=== PATIENT | female | born 1995 | race African-American/Black ===

== ENCOUNTER 2019-10-26 16:05 | Emergency (ER) | payer OTHER, BC, SELFPAY ==
[2019-10-26 16:19] VITALS: BP 132/69; PULSE 73; RESP 16; TEMP 37.4; O2SAT 98
--- NOTE | 2019-10-26 16:33 | ED.HEATRA ---
HPI - Head Injury General Chief complaint: Head Injury Stated complaint: head injury Time Seen by Provider: 10/26/19 16:25 Source: patient and RN notes reviewed Mode of arrival: ambulatory Limitations: no limitations History of Present Illness HPI Narrative: Patient presents today complaining of a headache and nausea. She was hit in the head by a bucket at work 3 days ago, subsequently seen in the ER at [facility], and diagnosed with a concussion. She was told to rest and take Tylenol. She has been also taking ibuprofen with mild relief. Currently rates her pain 7/10. Her nausea has increased today. She has already been cleared by Workmen's Comp. to go back to work. MD Complaint: head injury Related Data Home Medications Medication Instructions Recorded Confirmed No Home Medications 10/26/19 10/26/19 Allergies Allergy/AdvReac Type Severity Reaction Status Date / Time No Known Allergies Allergy Verified 10/26/19 16:26 Review of Systems Review of Systems: Narrative: CONSTITUTIONAL: Denies body aches, fever, chills, or sweats. EYES: Denies visual changes, redness, or discharge. ENT: Denies rhinorrhea, congestion, sore throat, or otalgia.+ Photophobia CARDIOVASCULAR: Denies chest pain, palpitations, or edema. RESPIRATORY: Denies cough or dyspnea. GASTROINTESTINAL: Denies abdominal pain, vomiting, or diarrhea.+ Nausea GENITOURINARY: Denies dysuria or hematuria. SKIN: Denies rash, itching, or wounds. MUSCULOSKELETAL: Denies back pain, joint pain, or myalgia. NEUROLOGIC: Denies numbness, tingling, or weakness. + Headache PSYCH: Denies depression or anxiety. [facility] Past Medical History Medical History (Updated 10/26/19 @ 16:38 by Leslee Melgar, PUBLIC HEALTH SPECIALIST, ) Anxiety Depression Social History Social History Gender identity (if verbalized by the patient): Female Comments At time of signature, I have reviewed and agree with nursing past medical, surgical, social and family history unless otherwise noted. Please see nursing chart for further information. There is no relevant family history pertinent to the presenting complaint Exam Narrative: Exam Narrative: GENERAL: Well-appearing, well-nourished, mild pain distress. HEAD: Normocephalic, atraumatic. EYES: EOMI. PERRL. No redness or drainage. Conjunctivae normal. ENT: Mucous membranes pink and moist. NECK: Normal AROM. CHEST: No respiratory distress. EXTREMITIES: Normal range of motion. No edema. SKIN: Warm, dry, no rash. Capillary refill normal. Normal skin turgor. NEURO: No focal deficits. Alert and oriented x3. Gait steady. PSYCH: Normal affect. No signs of depression or anxiety. Course Course Emergency Course: We will treat patient with Zofran for her nausea. Educated regarding cognitive rest. Vital Signs Vital signs: Vital Signs Temperature 99.4 F 10/26/19 16:19 Pulse Rate 73 10/26/19 16:19 Respiratory Rate 16 10/26/19 16:19 Blood Pressure 132/69 10/26/19 16:19 Pulse Oximetry 98 10/26/19 16:19 Temperature 99.4 F 10/26/19 16:19 Pulse Rate 73 10/26/19 16:19 Respiratory Rate 16 10/26/19 16:19 Blood Pressure 132/69 10/26/19 16:19 Pulse Oximetry 98 10/26/19 16:19 Reviewed. Pt has been instructed to follow up with her PCP regarding her elevated blood pressure today. MDM - Head Injury Differential Diagnosis Differential diagnosis: Likely postconcussion syndrome Critical Care Time Critical Care Time Critical Care Time: No Discharge Plan Discharge Clinical Impression: Postconcussion syndrome Patient Disposition: Home, Self-Care Condition: Stable Instructions: Post Concussion Syndrome (ED) Additional Instructions: Your symptoms are consistent with concussion/postconcussion syndrome. The symptoms may last for a couple of weeks. Please continue Tylenol and ibuprofen for headache. Take Zofran for nausea. Follow-up with your doctor or workman's comp physician with any conc
== END 2019-10-26 16:40 | disposition home or self-care (01) ==
PROVIDERS: Emergency Provider Nurse Practitioner
DX: F07.81 Postconcussional syndrome (principal)
CPT/HCPCS: 99213; G0463

== ENCOUNTER 2020-10-18 12:54 | Emergency (ER) | payer OTHER, SELFPAY ==
[2020-10-18 12:58] VITALS: BP 143/79; PULSE 98; RESP 16; TEMP 37.1; O2SAT 100
--- NOTE | 2020-10-18 15:42 | ED.URI ---
HPI - URI/Sore Throat General Chief Complaint: Upper Respiratory Infection Stated Complaint: SCRATCHY THROAT/COUGH/BODY ACHES Time Seen by Provider: 10/18/20 13:02 Source: patient and RN notes reviewed Mode of arrival: ambulatory Limitations: no limitations History of Present Illness HPI Narrative: Patient presents today complaining of scratchy and dry throat, fatigue since yesterday morning. She is currently 24 weeks and 1 day , G1, P0. She did see her SURVEY RESEARCH PROFESSOR yesterday and mentioned her symptoms. Her SURVEY RESEARCH PROFESSOR told her she needs to find a primary care provider. She has tried no [id number] treatment prior to arrival. She has not been vaccinated against COVID-19. Denies fever, cough, sore throat, congestion, runny nose. Related Data Allergies Allergy/AdvReac Type Severity Reaction Status Date / Time No Known Allergies Allergy Verified 10/26/19 16:26 Review of Systems Review of Systems: CONSTITUTIONAL: Denies body aches, fever, chills, or sweats.+ Fatigue EYES: Denies visual changes, redness, or discharge. ENT: Denies rhinorrhea, congestion, sore throat, or otalgia.+ Dry and scratchy throat CARDIOVASCULAR: Denies chest pain, palpitations, or edema. RESPIRATORY: Denies cough or dyspnea. GASTROINTESTINAL: Denies abdominal pain, nausea, vomiting, or diarrhea. GENITOURINARY: Denies dysuria or hematuria. SKIN: Denies rash, itching, or wounds. MUSCULOSKELETAL: Denies back pain, joint pain, or myalgia. NEUROLOGIC: Denies headache, numbness, tingling, or weakness. PSYCH: Denies depression or anxiety. [facility] Past Medical History Medical History Anxiety Depression Social History Social History Gender identity (if verbalized by the patient): Female Comments At time of signature, I have reviewed and agree with nursing past medical, surgical, social and family history unless otherwise noted. Please see nursing chart for further information. There is no relevant family history pertinent to the presenting complaint Exam Narrative: GENERAL: Well-appearing, well-nourished, and in no acute distress. HEAD: Normocephalic, atraumatic. EYES: EOMI. No redness or drainage. Conjunctivae normal. ENT: Mucous membranes pink and moist. Nares clear. No rhinorrhea. TMs normal bilaterally. Throat normal with mild amount of postnasal drainage. Uvula midline. NECK: Normal AROM. Supple. No lymphadenopathy. CHEST: No respiratory distress. Clear to auscultation. HEART: Regular rate and rhythm. No murmur appreciated. Normal peripheral pulses. ABDOMEN: Soft, nontender, nondistended, normal active bowel sounds. EXTREMITIES: Normal range of motion. No edema. SKIN: Warm, dry, no rash. Capillary refill normal. Normal skin turgor. NEURO: No focal deficits. Alert and oriented x3. Gait steady. PSYCH: Normal affect. No signs of depression or anxiety. Course Vital Signs Vital signs: Vital Signs Temperature 98.7 F 10/18/20 12:58 Pulse Rate 98 10/18/20 12:58 Respiratory Rate 16 10/18/20 12:58 Blood Pressure 143/79 H 10/18/20 12:58 Pulse Oximetry 100 10/18/20 12:58 Temperature 98.7 F 10/18/20 12:58 Pulse Rate 98 10/18/20 12:58 Respiratory Rate 16 10/18/20 12:58 Blood Pressure 143/79 H 10/18/20 12:58 Pulse Oximetry 100 10/18/20 12:58 Reviewed. Pt has been instructed to follow up with her PCP regarding her elevated blood pressure today. MDM - URI/Sore Throat Differential Diagnosis Differential diagnosis: Likely upper respiratory infection, viral infection and other (Rhinitis, seasonal allergies) Critical Care Time Critical Care Time Critical Care Time: No Discharge Plan Discharge Clinical Impression: Allergic rhinitis Qualifiers: Allergic rhinitis trigger: unspecified Allergic rhinitis seasonality: unspecified Qualified Code(s): J30.9 - Allergic rhinitis, unspecified Pat
== END 2020-10-18 13:31 | disposition home or self-care (01) ==
PROVIDERS: Emergency Provider Nurse Practitioner
DX: O99.512 Diseases of the respiratory system complicating pregnancy, second trimester (principal); Z3A.24 24 weeks gestation of pregnancy; J30.9 Allergic rhinitis, unspecified
CPT/HCPCS: 99211; G0463

== ENCOUNTER 2020-10-18 18:57 | Emergency (ER) | payer OTHER, SELFPAY ==
[2020-10-18 18:59] VITALS: BP 141/69; PULSE 98; RESP 16; TEMP 36.8; O2SAT 99
--- NOTE | 2020-10-18 20:33 | ED.FEVER ---
HPI - Fever General Chief Complaint: Fever Stated Complaint: fever/5 months Time Seen by Provider: 10/18/20 19:51 Source: patient and RN notes reviewed Mode of arrival: ambulatory Limitations: no limitations History of Present Illness HPI Narrative: This is a 24 year old female with GA 24 weeks who presents for evaluation of itchy throat, runny nose and body aches. Her symptoms started yesterday so she went to [facility] earlier today for evaluation. She did not have fever so she states she was diagnosed with allergic rhinitis. After discharge from [facility] she reports she had temperature of 99.4 F so she came to ER. She denies chest pain, shortness of breath, nausea, vomiting, abdominal pain, diarrhea or vaginal bleeding. She reports mild cough. 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 Related Data Allergies Allergy/AdvReac Type Severity Reaction Status Date / Time No Known Allergies Allergy Verified 10/18/20 19:51 Review of Systems Review of Systems: All systems reviewed & are unremarkable except as noted in HPI and below PMFSH Past Medical History Medical History Anxiety Depression Social History Social History Gender identity (if verbalized by the patient): Female Exam Narrative: GENERAL: Well-appearing, well-nourished, and in no acute distress. HEAD: Normocephalic, atraumatic EYES: PERRLA and EOMI, conjunctiva clear without discharge EARS: TM's clear bilaterally without erythema or dullness NOSE: Nares clear, no rhinorrhea or epistaxis THROAT:Mucous membranes moist, Oropharynx normal without erythema, exudate, peritonsillar swelling or fluctuance NECK: Supple, without lymphadenopathy or mass RESPIRATORY: No respiratory distress, Airway patent, Respirations non-labored, Clear to auscultation without rales, rhonchi or wheeze HEART: Regular rate and rhythm. No murmur heard. Normal peripheral pulses. ABDOMEN: Soft, nontender, nondistended, normal active bowel sounds. No masses. No rebound or guarding, No organomegaly. EXTREMITIES: No edema, normal strength with full range of motion. SKIN: Warm, dry, normal color without rash NEURO: Alert and oriented x3. CN 2-12 grossly intact. No focal deficits. PSYCH: Normal mood and affect. Const: General: no acute distress and alert Orientation/consciousness: patient oriented x3 Course Reevaluation(s) Reevaluation #1: I reviewed with patient's test results and she will need to quarantine for possible covid. Date: 10/18/20 Time: 21:06 Vital Signs Vital signs: Vital Signs Temperature 98.3 F 10/18/20 18:59 Pulse Rate 98 10/18/20 18:59 Respiratory Rate 16 10/18/20 18:59 Blood Pressure 141/69 H 10/18/20 18:59 Pulse Oximetry 99 10/18/20 18:59 Temperature 98.3 F 10/18/20 18:59 Pulse Rate 88 10/18/20 21:25 Respiratory Rate 18 10/18/20 21:25 Blood Pressure 132/74 10/18/20 21:25 Pulse Oximetry 98 10/18/20 21:25 MDM - Fever Lab Data Attestation: I reviewed the patient's lab results. Labs: Lab Results 10/18/20 10/18/20 Range/Units 20:34 20:34 Urine Color Yellow (Yellow) Urine Appearance Cloudy H (Clear) Urine pH 6.0 (5.0-9.0) Ur Specific [place] 1.024 (1.001-1.035) Urine Protein Negative (Negative) mg/dL Urine Glucose (UA) Negative (Negative) mg/dL Urine Ketones 1+ H (Negative) mg/dL Ur Blood (Man) Negative (Negative) Urine Nitrate Negative (Negative) Urine Bilirubin Negative (Negative) Urine Urobilinogen Negative (<2.0) mg/dL Leukocyte Esterase Rfl Negative (Negative) UNIQUE/UL Urine RBC 0-2 (0-2) /hpf Urine WBC 0-3 /hpf Ur Squamous Epith Cells Many H (Few) /hpf Urine Bacteria Trace /hpf Urine Mucus Rare /lpf SARS-CoV-2 RNA (RT-PCR)
[2020-10-18 20:52] LABS: Add Urine Microscopic? YES; Appearance Urine Cloudy (Clear); Bacteria Urine Trace /hpf; Bilirubin Urine Negative (Negative); Blood Urine Negative (Negative); Color Urine Yellow (Yellow); Glucose Urine UA Negative (Negative); Ketones Urine 1+ mg/dL (Negative); Leukocyte Esterase Ur Negative LEU/UL (Negative); Mucus Urine Rare /lpf; Nitrate Urine Negative (Negative); Protein Urine Negative (Negative); RBC Urine 0-2 /hpf (0-2); Specific Grav Ur 1.024 (1.001-1.035); Squamous Epithelial Cell Urine Many /hpf (Few); Urobilinogen Urine Negative mg/dL (<2.0); WBC Urine 0-3 /hpf
[2020-10-18 21:25] VITALS: BP 132/74; PULSE 88; RESP 18; O2SAT 98
[2020-10-19 15:32] LABS: SARS-CoV-2 RNA PCR Positive
== END 2020-10-18 21:25 | disposition home or self-care (01) ==
PROVIDERS: Emergency Provider General Practice
DX: O98.512 Other viral diseases complicating pregnancy, second trimester (principal); U07.1 COVID-19; Z3A.24 24 weeks gestation of pregnancy
CPT/HCPCS: 81001; 87081; 87804; 87880; 99283; C9803; U0003; U0005

== ENCOUNTER 2020-11-15 10:37 | Outpatient (CLI) | payer OTHER, SELFPAY ==
--- NOTE | ~2020-11-15 | XR_ITS ---
EXAMINATION: XR chest 2V EXAM DATE: 11/15/2020 10:59 INDICATION: COVID 19 Recheck On Pneumonia/Pt Shielded And . TECHNIQUE: Frontal and lateral projections of the chest obtained and reviewed. There is no prior jose antonio dy for comparison. FINDINGS: The lungs are clear. There are no pleural effusions. The cardiomediastinal silhouette is within normal limits. There is no pneumothorax suspected. The bones and soft tissues are unremarkab le. IMPRESSION: No acute cardiopulmonary findings. Reviewed, dictated and finalized at location A.
== END 2020-11-15 10:38 | disposition home or self-care (01) ==
PROVIDERS: PCP Obstetrics & Gynecology; Visit Provider Obstetrics & Gynecology
DX: U07.1 COVID-19 (principal)
CPT/HCPCS: 71046

== ENCOUNTER 2020-11-25 17:17 | Outpatient (RCR) | payer OTHER, SELFPAY ==
--- NOTE | ~2020-11-25 | US_ITS ---
US OB limited w BPP DATE: 11/25/2020 18:13 INDICATION: Decreased movement TECHNIQUE: Real-time imaging and Doppler analysis COMPARISON: None FINDINGS: Live house intrauterine gestation, fetus in longitudinal lie, vertex presentation. Feta l heart rate of 134 bpm. Posterior placenta. Amniotic fluid index measures 14.6 cm, within normal limits. (5th percentile KERA: 9.2 cm; 95th percen tile KERA: 23.1 cm). BIOPHYSICAL PROFILE reported by cable television technician: breathin out of 2 movement: 2 out of 2 tone: 2 out of 2 Amniotic fluid pocket: 2 out of 2 Total score: 8 out of 8 IMPRESSION: Normal biophysical score of 8 out of 8 Reviewed, dictated and finalized at Location A. Reviewed, dictated and finalized at location A.
[2020-11-25 17:54] VITALS: BP 125/62; PULSE 87
--- NOTE | 2020-11-25 18:01 | PC.NURSE ---
6930- Spoke with Asha Medina CNM, NST reactive with 2 variables,orders for BPP and KERA.
--- NOTE | 2020-11-25 19:05 | PC.NURSE ---
Addendum entered by Teodora Rodriguez RN 11/25/20 19:17: orders received for pt to be discharged. labor precautions reviewed and kick count handout given to pt. pt verbalizes understanding and denies any concerns at this time. pt has ob visit scheduled on 11/29/20 Original Note: espinoza lindsey cnm called and test results reviewed. tracing reviewed via telephone.
--- NOTE | 2020-11-25 19:21 | PC.NURSE ---
bpp score of 8 out of 8. cnm aware.
== END 2021-02-23 23:59 | disposition home or self-care (01) ==
LOC: ANHOBOP 17:17
PROVIDERS: Visit Provider Obstetrics & Gynecology
DX: O36.8130 Decreased fetal movements, third trimester, not applicable or unspecified (principal); Z3A.29 29 weeks gestation of pregnancy
CPT/HCPCS: 59025; 76815; 76819

== ENCOUNTER 2021-02-05 15:48 | Inpatient (IN) | payer OTHER, SELFPAY ==
[2021-02-05] VITALS (20 sets, daily range): BP systolic 118–150; BP diastolic 61–94; PULSE 52–75; TEMP 37.1; BMI 46.4
--- OUTSIDE RECORDS SUMMARY | 2021-02-05 15:54 | XMS_ITS ---
:1995 Author Care Team Providers Name Role Phone Antonette Thapa Primary Care Provider Unavailable Allergies Code Code System Name Reaction Severity Status Onset NKDA ? Medications Name Status Start Date Stop Date ? ? ondansetron HCl 4 mg tablet Completed ? 08/09 Active ? Not available sertraline 50 mg tablet Completed ? 08/24/19 Problems Name Status Onset Date Source ? Active 08/23/2020 ? Mixed Anxiety and Depressive Disorder Active ? ? Maternal Obesity Complicating , Active ? ? Childbirth and the Puerperium, Antepartum Procedures Date Name Performed by ? 05/22/2007 Tonsillectomy Information not avai lable 07/27/2020 US, Obstetric, Nuchal Translucency Colleen dior [address] [place] [address] ([address]) 09/20/2020 US, Obstetric, 2Nd or 3Rd Trimester Trista greene [address] [place] [address] (Work Place) 10/26/2020 XR, Chest [address] [place] [address] (Work [address]) 11/29/2020 US, Obstetric, Follow-up Masoud
--- OUTSIDE RECORDS SUMMARY | 2021-02-05 15:54 | XMS_ITS | Encounter Summary ---
:1995 Author Reason for Visit None recorded. Assessment and Plan 1. Maternal obesity complicating , childbirth and the puerperium, antepartum ? US, obstetric, biophysical profile + non-stress test Discussion Note: None recorded.Patient educational handouts: No information available. Plan of Care Reminders Provider Appointments Ob Routine Antonette Stacia 02/07/2021 MD Alanis 2:45PM Lab None recorded. ? ? Referral None recorded. ? ? Procedures None recorded. ? ? Surgeries None recorded. ? ? Imaging US, Obstetric, [facility] Biophysical Profile + 01/10/2021 Non-stress Test Medications Name Start Date ? ? ? Medications Administered None recorded. Vitals None recorded. Results Lab Results None recorded. Allergies Code Code System Name Reaction Severity Onset NKDA ? ? ? Problems Name Status Onset Date Source ? Active 08/23/2020 ? Mixed Anxiety and Depressive Disorder Active ? ? Maternal Obesity Complicating , Active ? ?
--- OUTSIDE RECORDS SUMMARY | 2021-02-05 15:54 | XMS_ITS | Encounter Summary ---
:1995 Author Reason for Visit None recorded. Assessment and Plan 1. Maternal obesity complicating , childbirth and the puerperium, antepartum ? US, obstetric, follow-up Discussion Note: None recorded.Patient educational handouts: No information available. Plan of Care Reminders Provider Appointments Ob Routine Antonette Stacia 02/07/2021 MD Alanis 2:45PM Lab None ? ? recorded. Referral None ? ? recorded. Procedures None ? ? recorded. Surgeries None ? ? recorded. Imaging , [place] Obstetric, Follow-up 01/24/2021 Medications Name Start Date ? ? ? [...]
--- OUTSIDE RECORDS SUMMARY | 2021-02-05 15:54 | XMS_ITS | Encounter Summary ---
:1995 Author Reason for Visit OB visit Assessment and Plan 1. Maternal obesity complicating , childbirth and the puerperium, antepartum 2. Mixed anxiety and depressive disorder Discussion Note: None recorded.Patient educational handouts: No information available. Plan of Care Reminders Provider Appointments Ob Routine Antonette Stacia 02/07/2021 MD Alanis 2:45PM Lab None ? ? recorded. Referral None ? ? recorded. Procedures None ? ? recorded. Surgeries None ? ? recorded. Imaging None ? ? recorded. Medications Name Start Date ? ? ? Medications Administered None recorded. Vitals Height Weight BMI Blood Pressure 5 ft 8 in 299 lbs 45.5 kg/m2 119/67 mm[Hg] Results Lab Results None recorded. Allergies Code Code System Name Reaction Severity Onset NKDA ? ? ? Problems Name Status Onset Date Source ? Active 08/23/2020 ? Mixed Anxiety and Depressive Disorder Active ? ? Maternal Obesity Complicating , Active ? ?
--- OUTSIDE RECORDS SUMMARY | 2021-02-05 15:54 | XMS_ITS | Encounter Summary ---
[...] None recorded. ? ? Imaging US, Obstetric, [facility] Biophysical Profile + 01/17/2021 Non-stress Test Medications Name Start Date ? [...]
--- OUTSIDE RECORDS SUMMARY | 2021-02-05 15:54 | XMS_ITS | Encounter Summary ---
:1995 Author Reason for Visit OB visit Assessment and Plan 1. Maternal obesity complicating , childbirth and the puerperium, antepartum Discussion Note: None recorded.Patient educational handouts: No [...] BMI Blood Pressure 5 ft 8 in 309 lbs 47 kg/m2 (1) 148/75 mm[H g] (2) 119/76 mm[Hg ] Results Lab Results None recorded. Allergies Code Code System Name Reaction Severity Onset NKDA ? ? ? Problems Name Status Onset Date Source ? Active 08/23/2020 ? Mixed Anxiety and Depressive Disorder Active ? ? Maternal Obesity Complicating , Active ? ?
--- OUTSIDE RECORDS SUMMARY | 2021-02-05 15:54 | XMS_ITS | Encounter Summary ---
[...] BMI Blood Pressure 5 ft 8 in 305 lbs 46.4 kg/m2 131/75 mm[Hg] Results Lab Results None recorded. Allergies Code Code System Name Reaction Severity Onset NKDA ? ? ? Problems Name Status Onset Date Source ? Active 08/23/2020 ? Mixed Anxiety and Depressive Disorder Active ? ? Maternal Obesity Complicating , Active ? ? Childbirth and the Puerperium, Antepartum
--- OUTSIDE RECORDS SUMMARY | 2021-02-05 15:54 | XMS_ITS | Encounter Summary ---
:1995 Author Reason for Visit None recorded. Assessment and Plan 1. Maternal obesity complicating , childbirth and the puerperium, antepartum ? non-stress test Discussion Note: None recorded.Patient educational handouts: No information available. Plan of Care Reminders Provider Appointments Ob Routine Antonette Stacia 02/07/2021 MD Alanis 2:45PM Lab None ? ? recorded. Referral None ? ? recorded. Procedures None ? ? recorded. Surgeries None ? ? recorded. Imaging Non-stress [place] Test 01/10/2021 Medications Name Start Date ? ? ? [...]
--- OUTSIDE RECORDS SUMMARY | 2021-02-05 15:54 | XMS_ITS | Encounter Summary ---
[...] ? recorded. Imaging Non-stress [place] Test 01/17/2021 Medications Name Start Date ? ? ? [...]
--- OUTSIDE RECORDS SUMMARY | 2021-02-05 15:54 | XMS_ITS | Encounter Summary ---
[...] ? recorded. Imaging Non-stress [place] Test 01/31/2021 Medications Name Start Date ? ? ? [...]
--- OUTSIDE RECORDS SUMMARY | 2021-02-05 15:54 | XMS_ITS | Encounter Summary ---
[...] None recorded. ? ? Imaging US, Obstetric, [facility] Biophysical Profile + 01/31/2021 Non-stress Test Medications Name Start Date ? [...]
--- OUTSIDE RECORDS SUMMARY | 2021-02-05 15:54 | XMS_ITS | Encounter Summary ---
[...] BMI Blood Pressure 5 ft 8 in 302 lbs 45.9 kg/m2 111/70 mm[Hg] Results Lab Results None recorded. Allergies Code Code System Name Reaction Severity Onset NKDA ? ? ? Problems Name Status Onset Date Source ? Active 08/23/2020 ? Mixed Anxiety and Depressive Disorder Active ? ? Maternal Obesity Complicating , Active ? ?
--- OUTSIDE RECORDS SUMMARY | 2021-02-05 15:54 | XMS_ITS | Encounter Summary ---
[...] None recorded. ? ? Imaging US, Obstetric, [facility] Biophysical Profile + 01/03/2021 Non-stress Test Medications Name Start Date ? [...]
--- OUTSIDE RECORDS SUMMARY | 2021-02-05 15:54 | XMS_ITS | Encounter Summary ---
[...] ? recorded. Imaging Non-stress [place] Test 01/24/2021 Medications Name Start Date ? ? [...]
--- OUTSIDE RECORDS SUMMARY | 2021-02-05 15:55 | XMS_ITS | Encounter Summary ---
[...] ? recorded. Imaging Non-stress [place] Test 01/03/2021 Medications Name Start Date ? ? ? [...]
--- OUTSIDE RECORDS SUMMARY | 2021-02-05 15:55 | XMS_ITS | Encounter Summary ---
:1995 Author Reason for Visit None recorded. Assessment and Plan 1. condition affecting obs tetrical care of mother ? US, obstetric, biophysical profile + non-stress test ? US, obstetric, follow-up Discussion Note: None recorded.Patient educational handouts: No information available. Plan of Care Reminders Provider Appointments Ob Routine Antonette Stacia 02/07/2021 MD Alanis 2:45PM Lab None recorded. ? ? Referral None recorded. ? ? Procedures None recorded. ? ? Surgeries None recorded. ? ? Imaging US, Obstetric, [facility] Biophysical Profile + 12/27/2020 Non-stress Test ? US, Obstetric, Id jaymie Follow-up 12/27/2020 Medications Name Start Date ? ? ? Medications Administered None recorded. Vitals None recorded. Results Lab Results None recorded. Allergies Code Code System Name Reaction Severity Onset NKDA ? ? ? Problems Name Status Onset Date Source ?
--- OUTSIDE RECORDS SUMMARY | 2021-02-05 15:55 | XMS_ITS | Encounter Summary ---
:1995 Author Reason for Visit OB visit 34W2D Assessment and Plan 1. Routine care Discussion Note: None recorded.Patient educational handouts: No [...] BMI Blood Pressure 5 ft 8 in 296 lbs 45 kg/m2 117/71 mm[Hg] Results Lab Results None recorded. Allergies Code Code System Name Reaction Severity Onset NKDA ? ? ? Problems Name Status Onset Date Source ? Active 08/23/2020 ? Mixed Anxiety and Depressive Disorder Active ? ? Maternal Obesity Complicating , Active ? ? Childbirth and the Puerperium, Antepartum Procedures [place]
--- OUTSIDE RECORDS SUMMARY | 2021-02-05 15:55 | XMS_ITS | Encounter Summary ---
:1995 Author Reason for Visit OB visit 30w2d Assessment and Plan 1. Routine care Discussion [...] BMI Blood Pressure 5 ft 8 in 290 lbs 44.1 kg/m2 118/75 mm[Hg] Results Lab Results None recorded. Allergies Code Code System Name Reaction Severity Onset NKDA ? ? ? Problems Name Status Onset Date Source ? Active 08/23/2020 ? Mixed Anxiety and Depressive Disorder Active ? ? Maternal Obesity Complicating , Active ? ? Childbirth and the Puerperium, Antepartum Procedures Da
--- OUTSIDE RECORDS SUMMARY | 2021-02-05 15:55 | XMS_ITS | Encounter Summary ---
[...] BMI Blood Pressure 5 ft 8 in 295 lbs 44.9 kg/m2 125/82 mm[Hg] Results Lab Results None recorded. Allergies Code Code System Name Reaction Severity Onset NKDA ? ? ? Problems Name Status Onset Date Source ? Active 08/23/2020 ? Mixed Anxiety and Depressive Disorder Active ? ? Maternal Obesity Complicating , Active ? ? Childbirth and the Puerperium, Antepartum
--- OUTSIDE RECORDS SUMMARY | 2021-02-05 15:55 | XMS_ITS | Encounter Summary ---
:1995 Author Reason for Visit OB visit 28W2D Assessment and Plan 1. Routine care Discussion [...] BMI Blood Pressure 5 ft 8 in 292 lbs 44.4 kg/m2 115/71 mm[Hg] Results Lab Results None recorded. Allergies Code Code System Name Reaction Severity Onset NKDA ? ? ? Problems Name Status Onset Date Source ? Active 08/23/2020 ? Mixed Anxiety and Depressive Disorder Active ? ? Maternal Obesity Complicating , Active ? ? Childbirth and the Puerperium, Antepartum Procedures [place]
--- OUTSIDE RECORDS SUMMARY | 2021-02-05 15:55 | XMS_ITS | Encounter Summary ---
:1995 Author Reason for Visit None recorded. Assessment and Plan 1. Gestation period, 30 weeks ? US, obstetric, follow-up Discussion Note: None recorded.Patient educational handouts: No information available. Plan of Care Reminders Provider Appointments Ob Routine Antonette Stacia 02/07/2021 MD Alanis 2:45PM Lab None ? ? recorded. Referral None ? ? recorded. Procedures None ? ? recorded. Surgeries None ? ? recorded. Imaging , [facility], Follow-up 11/29/2020 Medications Name Start Date ? ? ? [...]
--- OUTSIDE RECORDS SUMMARY | 2021-02-05 15:55 | XMS_ITS | Encounter Summary ---
:1995 Author Reason for Visit None recorded. Assessment and Plan 1. Severe obesity complicating p regnancy ? non-stress test Discussion Note: None recorded.Patient educational handouts: No information available. Plan of Care Reminders Provider Appointments Ob Routine Antonette Stacia 02/07/2021 MD Alanis 2:45PM Lab None ? ? recorded. Referral None ? ? recorded. Procedures None ? ? recorded. Surgeries None ? ? recorded. Imaging Non-stress [place] Test 12/27/2020 Medications Name Start Date ? ? [...] and the [place], Antepartum Procedures Date Name Per
[2021-02-05 16:30] LABS: Basophils Percent Auto 0.3 % (0.2-1.2); Eosinophils Absolute Auto 0.1 K/mm3 (0-0.3); Eosinophils Percent Auto 0.4 % (0-4.4); Hematocrit 33.4 % (37.0-47.0); Hemoglobin 10.9 g/dL (12.0-15.0); Immature Granulocyte Absolute 0.04 K/mm3 (0.00-0.031); Immature Granulocyte Percent A 0.4 % (0-0.5); Lymphocytes Percent Auto 16.9 % (18.3-44.2); Mean Corpuscular HGB Conc 32.6 g/dl (32-36); Mean Corpuscular Hemoglobin 26.1 pg (26-34); Mean Corpuscular Volume 80.1 fl (80-100); Mean Platelet Volume 10.3 fl (7.4-10.4); Monocytes Absolute Auto 0.5 K/mm3 (0.1-0.6); Monocytes Percent Auto 4.5 % (2.6-8.5); Neutrophils Absolute Auto 8.7 K/mm3 (1.3-6.7); Neutrophils Percent Auto 77.5 % (45.5-73.1); Platelet Count Result 308 k/mm3 (150-375); Red Blood Count 4.17 M/mm3 (4.2-5.4); Red Cell Distribution Width 15.9 % (11.5-14.5); White Blood Count 11.2 K/mm3 (4.5-10.0)
[2021-02-05] MEDS: DINOPROSTONE 10 MG VAG INSERT VAGINAL (16:37)
--- NOTE | 2021-02-05 17:45 | LDADM ---
This patient, Sandra Sloan, was admitted to Labor/Delivery/Recovery 103 on 02/05/21 at 15:48. Plans for labor, pain management and were discussed with patient. Patient/family oriented to hospital policies and general routines including ID bracelet, bed and alarms, visiting hours, pain management, procedures, bathroom and other care routines, personal items, smoking policy, room service/diet and guest tray routines, security routines, and visiting hours. Patient/Family are encouraged to report perceived risks to care and to ask questions if they do not understand what they are told or what they should do. See OBIX for further documentation.
--- NOTE | 2021-02-05 22:31 | WPDANESEPP ---
Anes - Eval Pre Procedure Procedure: Labor epidural Date/Time: 02/05/21 22:31 Surgeon: Cecilia Preop Diagnosis: ABD pain with contractions Pre Op Diagnosis: iol Patient Data Age: 25 Gender: F Height: 1.73 m Weight: 138.5 kg Last Vital Signs Pulse 56 L 02/05/21 22:16 BP 140/69 02/05/21 22:16 Allergies Allergy/AdvReac Type Severity Reaction Status Date / Time No Known Allergies Allergy Verified 10/18/20 19:51 Home Medications Medication Instructions Recorded Confirmed Type PNV cmb#95-ferrous fumarate-FA 1 tablet PO DAILY 01/07/21 02/05/21 History [] Laboratory Tests 02/05/21 02/05/21 02/05/21 16:21 16:21 16:21 WBC 11.2 K/mm3 H K/mm3 (4.5-10.0) RBC 4.17 M/mm3 L M/mm3 (4.2-5.4) Hgb 10.9 g/dL L g/dL (12.0-15.0) Hct 33.4 % L % (37.0-47.0) MCV 80.1 fl fl (80-100) MCH 26.1 pg pg (26-34) MCHC 32.6 g/dl g/dl (32-36) RDW 15.9 % H % (11.5-14.5) Plt Count 308 k/mm3 k/mm3 (150-375) MPV 10.3 fl fl (7.4-10.4) Immature Gran % (Auto) 0.4 % % (0-0.5) Neut % (Auto) 77.5 % H % (45.5-73.1) Lymph % (Auto) 16.9 % L % (18.3-44.2) [place] % (Auto) 4.5 % % (2.6-8.5) Eos % (Auto) 0.4 % % (0-4.4) Baso % (Auto) 0.3 % % (0.2-1.2) Lymph # (Auto) 1.90 K/mm3 K/mm3 (0.9-3.2) [place] # (Auto) 0.5 K/mm3 K/mm3 (0.1-0.6) Eos # (Auto) 0.1 K/mm3 K/mm3 (0-0.3) Baso # (Auto) 0.0 K/mm3 K/mm3 (0.0-0.1) Abs Immat Gran (auto) 0.04 K/mm3 H K/mm3 (0.00-0.031) Absolute Neuts (auto) 8.7 K/mm3 H K/mm3 (1.3-6.7) Absolute Nucleated RBC 0.0 K/mm3 K/mm3 (0.0-0.012) Nucleated RBC % 0.0 % % (0.0-0.2) RPR Pending Blood Type A Positive Antibody Screen Negative Patient hx anesthesia problems: none Family hx anesthesia problems: none Results Review: All pre-operative results and documents have been reviewed as part of the pre-operative evaluation. [facility] Past Medical History Medical History Anxiety Depression Morbid obesity and not yet delivered PTSD (post-traumatic stress disorder) Family History Family History Other No pertinent family history Social History Social History Smoking status: Former smoker Second hand tobacco smoke exposure: No Substance use: never Gender identity (if verbalized by the patient): Female Spiritual care concerns: No Exam Day of Procedure 02/05/21 22:31 Patient weight: morbidly obese Airway: Mallampati scale class II Neurological: alert and oriented
[2021-02-06] VITALS (102 sets, daily range): BP systolic 74–153; BP diastolic 41–132; PULSE 57–133; RESP 16–20; TEMP 36.3–37.3; O2SAT 97–100
[2021-02-06] MEDS: LACTATED RINGERS 1,000 ML 125 ML IV CONT ×3 (01:42→09:27)
[2021-02-06] MEDS: ONDANSETRON INJ 4 MG/2 ML VIAL IV PUSH (01:43)
[2021-02-06] MEDS: fentaNYL CITRATE INJ (*CRX) 100 MCG/2 ML VIAL 50 MCG IV PUSH ×2 (04:13→06:32)
[2021-02-06] MEDS: OXYTOCIN 30 UNITS/NS 500 ML 30 UNITS/500 ML BAG 4 UNITS IV CONT (06:38)
--- NOTE | 2021-02-06 08:20 | WPDOBADMIT ---
Obstetrics - Admit Note Admission Note: 21 y/o G1 @ 40 weeks here for induction of labor. record reviewed. No pertinent additions to the history and/or any subsequent changes in the physical findings that are not consistent with the expected course of the were found. Additions to the history and/or subsequent changes in the physical findings follow. None.
--- NOTE | 2021-02-06 08:39 | WPDANESEFPP ---
Anes - Eval Final PreProcedure Day of Procedure 02/06/21 08:39 Patient weight: morbidly obese Neurological: alert and oriented ASA classification: III Emergent: no Anesthetic plan: proceed Anesthesia type and monitoring: regional epidural and standard monitoring Results Review: All pre-operative results and documents have been reviewed as part of the pre-operative evaluation. Informed Consent: The patient's anesthetic plan and its attendant risks and benefits were discussed with the patient/family/POA. Questions were solicited and answers provided to the satisfaction of the patient/family/POA.
[2021-02-06] MEDS: LIDOCAINE HCL 1% PF 30 ML VIAL (13:25)
--- NOTE | 2021-02-06 13:31 | PM.OBPRVD ---
OB - Delivery Note Procedure Delivery date: 02/06/21 Intrapartal events: None Induction method: per pitocin protocol and per cervidil protocol Delivery monitor: external FHT and external uterine Route of delivery: Episiotomy description: None Laceration Description: Vaginal - 1st Degree Delivery repair: vicryl Quantitative Blood Loss (ml): 74 Anesthesia type: Epidural Narrative: Mother and baby in stable condition. Cord gasses collected and handed off to staff. Baby Date of : 02/06/21 Time of : 13:08 Weeks of gestation at delivery: 40 gender: Female presentation: vertex position: Left Occiput Anterior score one minute: 8 score five minutes: 9
[2021-02-06] MEDS: OXYTOCIN 30 UNITS/NS 500 ML 30 UNITS/500 ML BAG 125 UNITS IV CONT (13:55)
[2021-02-06 14:39] LABS: Rapid Plasma Reagin Non-Reactive (NonReactive)
--- NOTE | 2021-02-06 16:19 | PC.NURSE ---
Patient transferred to post room #282 via wheelchair. Support person present. Oriented to unit, room, information board, rooming in, admission packet and security measures. Patient verbalizes understanding.
[2021-02-06] MEDS: IBUPROFEN 600 MG TABLET PO (16:44)
[2021-02-07] MEDS: IBUPROFEN 600 MG TABLET PO ×2 (03:59→18:58)
[2021-02-07 04:00] VITALS: BP 116/65; PULSE 98; RESP 18; TEMP 36.4
[2021-02-07 04:56] LABS: Hematocrit 29.4 % (37.0-47.0); Hemoglobin 9.5 g/dL (12.0-15.0)
--- NOTE | 2021-02-07 07:09 | WPDANLDPN2 ---
Anes-Prog Note L&D Date/Time: 02/07/21 07:09 Comfortable throughout: labor and delivery Neuraxial method: epidural Epidural/Spinal procedure site: clean & non-tender Neuro status: Neuro function grossly intact. Cardiovascular status: normal Respiratory status: normal Airway patency: baseline Mental status: baseline Post-Op hydration status: normal Vital Signs: Last Vital Signs Temp 36.3 C L 02/06/21 23:00 Pulse 60 02/06/21 23:00 Resp 18 02/06/21 23:00 BP 106/59 L 02/06/21 23:00 Pulse Ox 100 02/06/21 16:30 Pain score (VAS): 0 I/O: Intake & Output 02/06/21 02/06/21 02/07/21 15:59 23:59 07:59 Intake Total 1825 Output Total 625 Balance 1200 Post-procedural complaints: none Patient feedback: Patient satisfied with anesthetic care.
[2021-02-07 07:35] VITALS: BP 116/64; PULSE 72; RESP 16; TEMP 37.7; O2SAT 100
--- NOTE | 2021-02-07 07:39 | P.PNOB_ITS ---
OB - PN: Subj Subjective Date/time seen: 02/07/21 07:39 Patient comments: no complaints, pain well controlled, tolerating diet and flatus present [place] baby status: doing well OB - PN: Obj Data Labs CBC & Chem 7: 02/07/21 03:54 Labs: Laboratory Results - last 24 hr 02/05/21 02/07/21 16:21 03:54 Hgb 9.5 L Hct 29.4 L RPR Non-reactive OB - PN A/P Plan day: 2 Plan: routine care and discharge home (Follow up in 1 week) Time Spent With Patient Time: Total time spent is greater than 50% in coordination of care (as documented) at patient's floor/unit and/or counseling patient: Time with patient: less than 15 minutes Review of Systems Review of Systems: All systems reviewed & are unremarkable except as noted in HPI and below Exam Narrative: Fundus firm. Vaginal flow controlled. Incision dry and intact. Negative homans. No redness, warmth, or pain of lower ext. Const: General: comfortable Chest: Breast/axilla inspection: normal inspection of the breasts Resp: Effort & Inspection: normal respiratory effort Auscultation: clear to auscultation bilaterally Cardio: Rate: regular rate GI: GI Palp: Yes Soft to palpation Psych: Appearance: grossly normal Affect: normal affect Attitude: cooperative Thought content: Yes Normal thought content present Judgement: Good judgement present (Psych)
--- NOTE | 2021-02-07 07:42 | PM.OBPNVD ---
OB - PN: Subj Subjective Date/time seen: 02/07/21 07:42 Patient comments: no complaints baby status: doing well OB - PN: Obj Data Labs CBC & Chem 7: 02/07/21 03:54 Labs: Laboratory Results - last 24 hr 02/05/21 02/07/21 16:21 03:54 Hgb 9.5 L Hct 29.4 L RPR Non-reactive OB - PN A/P Plan day: 2 Plan: routine care and discharge home (F/U in 4 weeks) Time Spent With Patient Time: Total time spent is greater than 50% in coordination of care (as documented) at patient's floor/unit and/or counseling patient: Time with patient: less than 15 minutes Review of Systems Review of Systems: All systems reviewed & are unremarkable except as noted in HPI and below Exam Narrative: Fundus firm and vaginal flow controlled. No lower ext redness, warmth, or edema. Negative homans. Const: General: comfortable Chest: Breast/axilla inspection: normal inspection of the breasts Resp: Effort & Inspection: normal respiratory effort Cardio: Rate: regular rate GI: GI Palp: Yes Soft to palpation Psych: Appearance: grossly normal Affect: normal affect Attitude: cooperative Thought content: Yes Normal thought content present Judgement: Good judgement present (Psych)
--- NOTE | 2021-02-07 07:43 | PM.OBPNVD ---
OB - PN: Subj Subjective Date/time seen: 02/07/21 07:43 Patient comments: no complaints baby status: doing well OB - PN: Obj Data Labs CBC & Chem 7: 02/07/21 03:54 Labs: Laboratory Results - last 24 hr 02/05/21 02/07/21 16:21 03:54 Hgb 9.5 L Hct 29.4 L RPR Non-reactive OB - PN A/P Plan day: 1 Plan: routine care Time Spent With Patient Time: Total time spent is greater than 50% in coordination of care (as documented) at patient's floor/unit and/or counseling patient: Time with patient: less than 15 minutes Review of Systems Review of Systems: All systems reviewed & are unremarkable except as noted in HPI and below Exam Narrative: Fundus firm and vaginal flow controlled. No lower ext redness, warmth, or edema. Negative homans. Const: General: comfortable Chest: Breast/axilla inspection: normal inspection of the breasts Resp: Effort & Inspection: normal respiratory effort Cardio: Rate: regular rate GI: GI Palp: Yes Soft to palpation Psych: Appearance: grossly normal Affect: normal affect Attitude: cooperative Thought content: Yes Normal thought content present Judgement: Good judgement present (Psych)
--- NOTE | 2021-02-07 08:40 | PC.NURSE ---
Mother called out for assist with feeding. Mother reports infant is sleepy and makes eager attempts to latch with short bursts of nursing and will release latch. Mother is using a nipple shield and supplementing for all feedings. Skin is intact on both nipples, slight redness and bruising noted bilat. Nipple care reviewed of lanolin after feedings, warm compresses as needed. Reviewed feeding cues, frequencies, duration of feedings, feeding elimination flow sheet, and signs of adequate intake. Demonstrated stimulation techniques to wake infant for feeding. Assisted with infant to breast. Reviewed positioning/alignment in cross cradle, holding breast in ?U? hold and guided asymmetrical latch on. Reviewed rational for each. Infant eagerly rooting making attempts to latch, once on nurses with steady draws for short burst and would release nipple then noted sucking his tongue with nipple under tongue. Several times infant latched repeating short bursts and releasing latch. Reviewed the difference of effective vs ineffective nursing. Discussed nipple shield use and how shield may assist with latch. Reviewed nipple shield precautions and possible complications. Instructions given on application and cleaning of shield. Patient able to return demonstration on proper application of shield. Discussed the need to initiate pumping if continues to nurse with the shield. Patient verbalizes understanding. With shield in place, infant able to latch correctly after several attempts. nursed eagerly with steady draws and occasional swallowing noted for bursts followed with long pausing. Reviewed signs of a correct latch, effective nursing and suck swallow ratio. Infant was able to maintain latch without discomfort to mother. Suggested mother stimulate while feeding to increase stimulate, increase intake and to assist with maintaining deep latch. Demonstrated how to adjust latch more deeply while feeding if needed. Discussed the difference of effective vs ineffective feeding. Reviewed infant is latching with good burst of suckling, she is not feeding consistently with adequate milk transfer at this time and continues to need supplement after . Feeding options discussed, Feeding Plan is for mother to put infant to breast each feeding for up to 15 minutes, then pace feed supplement 20 mls and pump for 10-15 minutes. Parents are comfortable with supplementation and pumping. If infant begins to nurse effectively with long draws and frequent swallowing noted, may decrease supplementation and discontinue pumping. Suggested mother have LC radon inspector observe feeding before discontinuing supplementation. Discussed increasing supplementation as requires to satisfactions. Reviewed paced feeding and suggested to stop when is satisfied, as long as infant is having required output. With increased supplementation may not want to feed for 4 hours. Mother will continue to pump on infant feeding schedule and will increase session to 20 minutes if pumping every 4 hours. Instructed mother to call out for RN assistance if she is unable to latch for feeding or she has discomfort with nursing. Instructed feeding should be initiated three hours from start of last feeding or if feeding cues are noted before. Mother voiced understanding of information shared
[2021-02-07] MEDS: DOCUSATE SODIUM 100 MG CAPSULE PO ×2 (09:47→17:36)
[2021-02-07] MEDS: POLYSACCHARIDE IRON COMPLEX 150 MG CAPSULE PO ×2 (09:47→17:38)
[2021-02-07] MEDS: MULTIVIT/MIN/PREN/FOL AC/IRON TABLET 1 TAB PO (09:47)
--- NOTE | 2021-02-07 10:00 | PC.NURSE ---
Breast pump provided due to nipple shied use/ineffective feeding. Instructions given on breast pump care and usage, pumping schedule, nipple care, and collection and storage of breast milk. Encouraged [id number], breast massage and manual expression to stimulate supply. Assessed patient for correct flange size, placement and draw. Patient verbalizes and demonstrates understanding of instructions. Discussed colostrum vs milk supply and mother may not see more than a few drops the first few days, milk should transition in by day 3 and she may see more volume pumped per session.
--- NOTE | 2021-02-07 10:39 | PC.NURSE ---
Attempted to do morning assessment, patient was on the phone and refused assessment at this time
[2021-02-07 11:39] VITALS: BP 128/64; PULSE 59; RESP 18; TEMP 36.5; O2SAT 100
--- NOTE | 2021-02-07 12:25 | PC.NURSE ---
Mother called out for assist with latching. Infant eagerly rooting making attempts to latch, once on infant nurses with steady draws for short burst and would release nipple then noted sucking his tongue with nipple under tongue. Several times infant latched repeating short bursts and releasing latch. Reviewed the difference of effective vs ineffective nursing. With shield in place, infant able to latch correctly after several attempts. nursed eagerly with steady draws and occasional swallowing noted for bursts followed with long pausing. Reviewed signs of a correct latch, effective nursing and suck swallow ratio. Infant was able to maintain latch without discomfort to mother. Suggested mother stimulate while feeding to increase stimulate, increase intake and to assist with maintaining deep latch. Demonstrated how to adjust latch more deeply while feeding if needed. Infant on and off several times this feeding. Reviewed infant is latching with short burst of suckling, she is not feeding consistently with adequate milk transfer at this time and continues to need supplement after .
[2021-02-07 16:30] VITALS: BP 120/72; PULSE 82; RESP 16; TEMP 36.3; O2SAT 100
[2021-02-07 20:20] VITALS: BP 139/67; PULSE 60; RESP 20; TEMP 36.7
[2021-02-07] MEDS: ACETAMINOPHEN 325 MG TABLET 650 MG PO (23:45)
--- NOTE | 2021-02-08 07:00 | PC.NURSE ---
PT introductions made and plan of care discussed per post , pain management, breast /bottle feeding, daily care activities, and pending discharge to home. PT received such instructions per one to one discussion mom baby care guide book and demonstrations. Pt and spouse both recipients of such instructions and no barriers to learning identified at this time. PT verbalized understanding of such care. Patient viewed the discharge video Mother & Baby Care, The First Two Weeks . Patient was given the opportunity and encouraged to ask questions. Patient verbalized understanding of information shared and has been given the mother/baby guide for home reference.
--- NOTE | 2021-02-08 07:30 | P.PNOB_ITS ---
OB - PN: Subj Subjective Date/time seen: 02/08/21 07:30 Patient comments: no complaints baby status: doing well OB - PN: Obj Data Labs CBC & Chem 7: 02/07/21 03:54 OB - PN A/P Plan day: 2 Plan: routine care and discharge home Time Spent With Patient Time: Total time spent is greater than 50% in coordination of care (as documented) at patient's floor/unit and/or counseling patient: Review of Systems Review of Systems: All systems reviewed & are unremarkable except as noted in HPI and below Exam Const: General: cooperative, healthy appearing, comfortable and no acute dis tress
--- NOTE | 2021-02-08 07:32 | PM.OBDSVD ---
DS: Admitting Diagnosis Discharge Date 02/08/21 Admitting Diagnosis IOL OB - DS: Summary OB Procedures : None OB Procedures Intrapartum: Spontaneous Vag Delivery OB Procedures: : None Time Spent with Patient Time attestation: Total time spent providing and/or coordinating discharge services: Discharge Plan Discharge Attending physician on discharge: Aminah Brooks Discharging Clinician: Era Nix Patient Disposition: Home, Self-Care Activity: pelvic rest Diet: regular Patient Instructions: Antibiotic Form Stand Alone Forms: General Discharge Information Follow-up/Referrals: Micaela Medina CNM [Certified Nurse Can Filler] - 4 Weeks Discharge Medications: New polysaccharide iron complex 150 mg iron Capsule 150 mg PO BIDWM Qty: 60 RF: 0 ibuprofen 600 mg Tablet 600 mg PO Q6H PRN (Reason: Cramping) Qty: 30 RF: 0 Continued PNV cmb#95-ferrous fumarate-FA [] 28 mg iron- 800 mcg Tablet 1 tablet PO DAILY RF: 0 Date of admission: 02/05/21 15:48 Primary Care Provider: PHYSICIAN,CONSULTING TECHNICAL MANAGER Admitting Provider: Aminah Brooks Attending physician on admission: Aminah Brooks Condition: Stable
[2021-02-08 07:39] VITALS: PULSE 88; RESP 18; O2SAT 99
[2021-02-08] MEDS: DOCUSATE SODIUM 100 MG CAPSULE PO (07:40)
[2021-02-08] MEDS: MULTIVIT/MIN/PREN/FOL AC/IRON TABLET 1 TAB PO (07:41)
[2021-02-08] MEDS: POLYSACCHARIDE IRON COMPLEX 150 MG CAPSULE PO (07:41)
[2021-02-08] MEDS: IBUPROFEN 600 MG TABLET PO (07:42)
[2021-02-08] MEDS: ACETAMINOPHEN 325 MG TABLET 650 MG PO (07:42)
[2021-02-08 07:55] VITALS: BP 119/70; PULSE 88; RESP 18; TEMP 36.6; O2SAT 99
--- NOTE | 2021-02-08 09:00 | PCDIET ---
Observed mother is able to independently latch infant with appropriate positioning/alignment using the nipple shield. She denies any nipple discomfort, is feeding as required and waking infant to feed if needed. Infant is more awake and making eager attempts with and maintaining latch. Infant will eagerly nurse the first 2-3 minutes then release latch. Mother continues to work with keeping tongue down to obtain a deep latch. Infant has had no effective feedings in the past 24 hours, all feedings infant is supplemented. Mother chooses to bottle feed at times and not put infant to breast. is currently meeting outcomes for weight, output, jaundice and feeding frequencies. is WNL for weight loss, jaundice and output. Mother continues to pump after all feedings without difficulties or discomfort. Mother has a pump coming from [facility] for home use. Assisted with kit as a hand pump until her double electric pump is in. Discussed the difference of effective vs ineffective feeding. Reviewed requires supplementation after all feedings. She is latching with good burst of suckling using the shield, she is not feeding consistently with adequate milk transfer at this time and continues to need to be supplement after . Feeding plan discussed, Feeding Plan is for mother to put infant to breast each feeding for up to 15 minutes, then pace feed supplement 25-30 mls and pump for 10-15 minutes. Discussed increasing supplementation as infant requires to satisfactions. Reviewed paced feeding and suggested to stop when infant is satisfied, as long as infant is having required output. With increased supplementation infant may not want to feed for 4 hours. Mother will continue to pump on infant feeding schedule and will increase session to 20 minutes if pumping every 4 hours. If begins to nurse effectively with long draws and frequent swallowing noted, infant may decrease supplementation and discontinue pumping. Advised not to discontinue supplement until a pre/post feeding evaluation by PCP, Follow up RN or LC is completed. Mother states she feels confident to continue feeding plan at home. Reviewed transition to breast milk, signs of adequate intake, and engorgement/relief. Instructed to call ICP if intake/output less than required. Reviewed regular medications mother is taking. Information provided per Anuja. Reviewed community resources on the [facility] [employer] website and in the Mom/Baby guide. Information on outpatient services provided. Mother has no further questions at this time.
--- NOTE | 2021-02-08 14:07 | PC.NURSE ---
PT discharged to home ambulatory accompanied by significant other and and walked to waiting car. Follow up appts confirmed
--- NOTE | 2021-02-08 15:58 | PCCCNOTE ---
Care Coordination met with pt. and FOB to discuss discharge planning. Pt.'s current D/C plan is to return home with FOB and his family. Pt. states FOB's family are supportive. Pt. often cares for her siblings so she has no concerns about bringing baby home. Pt. states that she has everything needed to safely bring baby home. Pt. is current with WIC, she will attempt to breast feed at time of D/C. Pt. states she has no prior DCFS cases open. Pt. has a child and adolescent therapist for baby. Pt. denies any D/C needs at this time. No further need for CC services.
[2021-02-09 10:25] VITALS: BP 127/71; PULSE 67; RESP 20; TEMP 37.2; O2SAT 100
== END 2021-02-08 14:07 | disposition home or self-care (01) | DRG 560 ==
LOC: ANHLDR 15:52 → ANHOB2 02-06 16:23
PROVIDERS: Advanced Practice Midwife; Admitting Provider Obstetrics & Gynecology; Visit Provider Obstetrics & Gynecology
DX: O76 Abnormality in fetal heart rate and rhythm complicating labor and delivery (principal); O99.214 Obesity complicating childbirth; E66.01 Morbid (severe) obesity due to excess calories; O70.0 First degree perineal laceration during delivery; Z3A.40 40 weeks gestation of pregnancy; Z37.0 Single live birth; Z87.891 Personal history of nicotine dependence
CPT/HCPCS: 36415; 85014; 85018; 85025; 86592; 86850; 86900; 86901; A9270; J2405; J2590; J2795; J3010; J7120

== ENCOUNTER 2021-04-10 10:18 | Emergency (ER) | payer OTHER, SELFPAY ==
[2021-04-10 10:26] VITALS: BP 155/80; PULSE 58; RESP 16; TEMP 36.7; O2SAT 100
--- NOTE | 2021-04-10 10:48 | ED.SKABFB ---
HPI - Skin/Abscess/Foreign Bdy General Chief complaint: Skin/Abscess/Foreign Body Stated complaint: Itching Time Seen by Provider: 04/10/21 10:50 Source: patient, RN notes reviewed and old records reviewed Mode of arrival: ambulatory Limitations: no limitations History of Present Illness HPI narrative: 25-year-old female presents to the [facility] with complaints of being itchy all over for approximately 1 week. Has tried Benadryl with no relief. Patient is approximately 9 weeks . Patient denied any complications. States as a child she had histamine issues. No rashes. No new foods. No new creams or ointments lotions or detergents. Related Data Allergies Allergy/AdvReac Type Severity Reaction Status Date / Time No Known Allergies Allergy Verified 04/10/21 10:52 Review of Systems Review of Systems: All systems reviewed & are unremarkable except as noted in HPI and below Constitutional: Constitutional: Reports no additional constitutional complaints, Denies chills and Denies fever(s) Eyes: Eyes: Reports no additional eye complaints ENT: Reports system reviewed and no additional complaints, except as documented Cardiovascular: Cardiovascular: Reports no additional cardiovascular complaints and Denies chest pain Respiratory: Respiratory: Reports no additional respiratory complaints, Denies cough, Denies dyspnea and Denies wheezing Gastrointestinal: Gastrointestinal: Reports no additional gastrointestinal complaints, Denies abdominal pain, Denies diarrhea, Denies nausea and Denies vomiting Musculoskeletal: Musculoskeletal: Reports no additional musculoskeletal complaints Integumentary/Breasts: Skin/Breast: Reports as per HPI, Reports pruritus (Generalized), Denies erythema and Denies rash Neurologic: Reports system reviewed and no additional complaints, except as documented Psychiatric: Psychiatric: Reports no additional psychiatric complaints Allergic/Immunologic: Allergic/Immunologic: Reports no additional allergic/immunologic complaints PMF Past Medical History Medical History Anxiety Depression Morbid obesity and not yet delivered PTSD (post-traumatic stress disorder) Family History Family History Other No pertinent family history Social History Social History Smoking status: Former smoker Second hand tobacco smoke exposure: No Substance use: never Gender identity (if verbalized by the patient): Female Spiritual care concerns: No Comments At the time of my signature, I reviewed and agree with the nursing past medical, surgical, social, and family history. There is no relevant family history pertinent to the patient complaint. Exam Const: General: well developed, alert, awake and uncomfortable (Itchy) Nutritional Appearance: well nourished and obese Orientation/consciousness: patient oriented x3 Limitations: no limitations HENMT: Head: normal to inspection and atraumatic Ears: external ears normal, TM's normal bilaterally and EAC's normal General nose exam: Normal external nose present, Normal nasal mucous membranes and turbinates present and No nasal discharge present Face and sinus: normal facial exam Mouth: Yes Normal oral and palatal mucosa present, Yes lip normal, Yes tongue normal, Yes oropharynx normal and Yes moist mucous membranes Throat: posterior oropharynx normal, tonsils normal, uvula midline and no uvular edema Eyes: Conjunctivae: conjunctivae normal Pupils: Equal, round and reactive pupils present Neck: Neck: normal visual inspection, no lymphadenopathy and no meningeal signs Chest: Chest palpation & inspection: normal inspection of the chest Resp: Effort & Inspection: normal respiratory effort and no use of accessory muscles Auscultation: clear to auscultation bilaterally, no crackles, no rales, no
[2021-04-10 11:20] VITALS: BP 118/82
== END 2021-04-10 11:40 | disposition home or self-care (01) ==
PROVIDERS: Emergency Provider Nurse Practitioner
DX: L29.9 Pruritus, unspecified (principal); Z87.891 Personal history of nicotine dependence; E66.01 Morbid (severe) obesity due to excess calories; Z68.42 Body mass index [BMI] 45.0-49.9, adult
CPT/HCPCS: 99213; G0463

== ENCOUNTER 2021-06-07 09:33 | Emergency (ER) | payer OTHER, SELFPAY ==
[2021-06-07 09:41] VITALS: BP 138/74; PULSE 101; RESP 18; TEMP 37.9; O2SAT 99
--- NOTE | 2021-06-07 09:43 | ED.URI ---
HPI - URI/Sore Throat General Chief Complaint: Upper Respiratory Infection Stated Complaint: body aches/uri Time Seen by Provider: 06/07/21 09:43 Source: patient Mode of arrival: ambulatory Limitations: no limitations History of Present Illness HPI Narrative: 25-year-old female presents with complaint of cough, congestion, headache, fatigue, body aches and fever that started yesterday. Denies nausea vomiting diarrhea. No shortness of breath or chest pain. Taking Tylenol to treat symptoms. All systems reviewed and negative except as noted above. Related Data Home Medications Medication Instructions Recorded Confirmed medroxyprogesterone [Depo-Provera mg IM 06/07/21 Contraceptive] Allergies Allergy/AdvReac Type Severity Reaction Status Date / Time No Known Allergies Allergy Verified 04/10/21 10:52 Review of Systems Review of Systems: CONSTITUTIONAL: Reports fever, chills, or sweats. EYES: Denies visual changes, redness, or discharge. ENT: Reports rhinorrhea, congestion, sore throat. Denies otalgia. CARDIOVASCULAR: Denies chest pain, palpitations, or edema. RESPIRATORY: Reports cough. Denies dyspnea. GASTROINTESTINAL: Denies abdominal pain, nausea, vomiting, or diarrhea. GENITOURINARY: Denies dysuria or hematuria. SKIN: Denies rash or itching. MUSCULOSKELETAL: Denies back pain, joint pain, or myalgia. NEUROLOGIC: Denies headache, numbness, or weakness. PSYCHIATRIC: Denies anxiety or depression. All other systems reviewed are negative, except as documented in HPI. PMFSH Past Medical History Medical History Anxiety Depression Morbid obesity and not yet delivered PTSD (post-traumatic stress disorder) Family History Family History Other No pertinent family history Social History Social History Smoking status: Former smoker Second hand tobacco smoke exposure: No Substance use: never Gender identity (if verbalized by the patient): Female Spiritual care concerns: No Comments At time of signature, agree with nursing past medical, surgical, social and family history. There is no relevant family history pertinent to the presenting complaint. Exam Narrative: GENERAL: This is a well-nourished, well-developed patient, in no apparent distress. HEAD: normocephalic, atraumatic. EYES: PERRL. Sclera clear/white. Vision is grossly intact. EARS: External ears normal, auditory canals clear and without drainage, TMs normal without perforation. Hearing grossly intact. NOSE: External nose normal with clear nasal drainage. THROAT: Mucous membranes moist, posterior pharynx clear. NECK: Neck supple, non-tender without lymphadenopathy, masses or thyromegaly. CARDIOVASCULAR: Regular rate and rhythm without murmurs, gallops, or rubs. RESPIRATORY: Clear to auscultation. Breath sounds equal bilaterally. No wheezes, rales, or rhonchi. SKIN: warm, Dry, intact with no suspicious lesions or rash, good texture and turgor. NEURO: awake, alert, and oriented to person, place and time. There were no obvious focal neurologic abnormalities. EXTREMITIES: Normal range of motion to all extremities. Course Course Level of Care: Express Care Visit Vital Signs Vital signs: Vital Signs Temperature 37.9 C H 06/07/21 09:41 Pulse Rate 101 H 06/07/21 09:41 Respiratory Rate 18 06/07/21 09:41 Blood Pressure 138/74 06/07/21 09:41 Pulse Oximetry 99 06/07/21 09:41 Temperature 37.9 C H 06/07/21 09:41 Pulse Rate 101 H 06/07/21 09:41 Respiratory Rate 18 06/07/21 09:41 Blood Pressure 138/74 06/07/21 09:41 Pulse Oximetry 99 06/07/21 09:41 Reviewed MDM - URI/Sore Throat MDM Narrative Medical decision making narrative: Patient is aware of diagnosis, understands and agrees to treatment plan. Anticipatory guidance given. Patient agrees to f
== END 2021-06-07 10:11 | disposition home or self-care (01) ==
PROVIDERS: Emergency Provider Nurse Practitioner Family
DX: J06.9 Acute upper respiratory infection, unspecified (principal)
CPT/HCPCS: 87804; 99213; G0463

== ENCOUNTER 2021-09-07 12:56 | Outpatient (CLI) | payer OTHER, SELFPAY ==
--- NOTE | ~2021-09-07 | US_ITS ---
US breast RT limited 09/07/2021 14:05 Indication: Palpable lump under right breast. Procedure: High-resolution Limited ultrasound beneath the right breast in the area of clinical concer n Comparison: No prior studies for comparison. Findings: At 4:00, 15 cm from the nipple in the subcutaneous tissues there is an ill-defined hypoecho ic mass measuring 12 x 8 x 9 mm mm greatest dimension. No significant posterior features. No sinus tr act is identified. No other mass. Impression: 1: Irregular shaped hypoechoic subcutaneous mass of the right breast in the area of palpable concern, suspicious for complicated sebaceous cyst. Cannot exclude infection. Recommend follow-up clinical ma nagement with repeat ultrasound and 3-6 months to assess for resolution. BI-RADS CATEGORY 3-PROBABLY BENIGN FINDING Reviewed, dictated and finalized at location A. Impression: 1: Irregular shaped hypoechoic subcutaneous mass of the right breast in the are a of palpable concern, suspicious for complicated sebaceous cyst. Cannot exclud e infection. Recommend follow-up clinical management with repeat ultrasound and 3-6 months to assess for resolution. BI-RADS CATEGORY 3-PROBABLY BENIGN FINDING
== END 2021-09-07 12:57 | disposition home or self-care (01) ==
PROVIDERS: Visit Provider Nurse Practitioner
DX: N63.10 Unspecified lump in the right breast, unspecified quadrant (principal); R92.8 Other abnormal and inconclusive findings on diagnostic imaging of breast
CPT/HCPCS: 76642

== ENCOUNTER 2021-09-10 12:47 | Emergency (ER) | payer OTHER, SELFPAY ==
[2021-09-10 13:06] VITALS: BP 141/88; PULSE 74; RESP 16; TEMP 36.8; O2SAT 99
--- NOTE | 2021-09-10 13:10 | ED.ABDPAIN ---
HPI - Abdominal Pain General Chief Complaint: Abdominal Pain Stated Complaint: abd pain Time Seen by Provider: 09/10/21 13:11 Source: patient and RN notes reviewed Mode of arrival: ambulatory Limitations: no limitations History of Present Illness HPI narrative: 25-year-old female presents to the [facility] with right upper quadrant, epigastric pain and vomiting since midnight last night. States that she had Chick-amcey-A and started with the discomfort shortly after. Has tried Nexium, Pepcid, nausea medication and Pepto-Bismol with no relief. States that she feels very dehydrated. Denies any chest pain or shortness of breath. Denies any diarrhea. Denies fevers. Reports she can only do small sips of water. MD elicited complaint: abdominal pain Onset (ago): hour(s) (13) Pain Consistency: constant Location: epigastric and RUQ Pain scale (0-10): 6 Related Data Home Medications Medication Instructions Recorded Confirmed medroxyprogesterone 150 mg/mL mg IM 06/07/21 intramuscular suspension cephalexin 500 mg capsule 1 cap PO BID 09/10/21 09/10/21 Allergies Allergy/AdvReac Type Severity Reaction Status Date / Time No Known Allergies Allergy Verified 09/10/21 13:26 Review of Systems Review of Systems: All systems reviewed & are unremarkable except as noted in HPI and below Constitutional: Constitutional: Reports no additional constitutional complaints, Denies chills and Denies fever(s) Eyes: Eyes: Reports no additional eye complaints ENT: Reports system reviewed and no additional complaints, except as documented Cardiovascular: Cardiovascular: Reports no additional cardiovascular complaints Respiratory: Respiratory: Reports no additional respiratory complaints Gastrointestinal: Gastrointestinal: Reports as per HPI, Reports abdominal pain, Reports nausea and Reports vomiting Genitourinary: Genitourinary: Reports no additional female genitourinary complaints, Denies dysuria, Denies pelvic pain and Denies flank pain Musculoskeletal: Musculoskeletal: Reports no additional musculoskeletal complaints Integumentary/Breasts: Skin/Breast: Reports system reviewed and no additional complaints, except as docu Neurologic: Reports system reviewed and no additional complaints, except as documented Psychiatric: Psychiatric: Reports no additional psychiatric complaints Allergic/Immunologic: Allergic/Immunologic: Reports no additional allergic/immunologic complaints PMFSH Past Medical History Medical History Anxiety Depression Morbid obesity and not yet delivered PTSD (post-traumatic stress disorder) Family History Family History Other No pertinent family history Social History Social History Smoking status: Former smoker Second hand tobacco smoke exposure: No Substance use: never Gender identity (if verbalized by the patient): Female Spiritual care concerns: No Comments At the time of my signature, I reviewed and agree with the nursing past medical, surgical, social, and family history. There is no relevant family history pertinent to the patient complaint. Exam Const: General: healthy appearing, no acute distress and alert Nutritional Appearance: well nourished and obese morbidly obese Orientation/consciousness: patient oriented x3 Limitations: no limitations HENMT: Head: normal to inspection Ears: external ears normal Eyes: General: appearance normal, both eyes and all related structures Pupils: Equal, round and reactive pupils present Neck: Neck: normal visual inspection, no lymphadenopathy and no meningeal signs Chest: Chest palpation & inspection: normal inspection of the chest Resp: Effort & Inspection: normal respiratory effort and no use of accessory muscles Auscultation: clear to auscultation bilaterally,
== END 2021-09-10 13:23 | disposition short-term general hospital (02) ==
PROVIDERS: Emergency Provider Nurse Practitioner
DX: R10.11 Right upper quadrant pain (principal); R10.13 Epigastric pain; R11.2 Nausea with vomiting, unspecified; Z87.891 Personal history of nicotine dependence
CPT/HCPCS: 99212; G0463

== ENCOUNTER 2021-09-10 13:40 | Inpatient (IN) | payer OTHER, SELFPAY ==
--- NOTE | ~2021-09-10 | XR_ITS ---
EXAMINATION: XR cholangiogram surg 1st inj DATE: 09/13/2021 13:05 INDICATION: Cholelithiasis and cholecystitis TECHNIQUE: 335 fluoroscopic images of the right upper quadrant were obtained during intraoperative ch olangiography performed by the surgeon. I was not present in the operating room. Fluoroscopy exposure time was 53 seconds. COMPARISON: None. FINDINGS: No filling defects are identified in the common bile duct. There is no intrahepatic or extr ahepatic biliary dilatation. IMPRESSION: 1. No biliary filling defects identified. Findings were communicated to Dr. Correa in the operating shonda at 1242 hours on 09/13/2021. Reviewed, dictated and finalized at location B. IMPRESSION: 1. No biliary filling defects identified. Findings were communicated to Dr. Hari zaldivar in the operating room at 1242 hours on 09/13/2021.
--- NOTE | ~2021-09-10 | MR_ITS ---
EXAMINATION: MR MRCP wo/w con/w 3D wo ind DATE: 09/12/2021 08:12 INDICATION: Right upper quadrant pain, cholelithiasis TECHNIQUE: Magnetic resonance imaging (MRI) of the abdomen was performed without and with intravenous contrast. Sequences included coronal T2-weighted SS-FSE ARC, coronal T2-weighted FS SS-FSE, coronal T2-weighted 2D FS FIESTA, Water:Coronal LAVA-Flex, sagittal T2-weighted SS-FSE ARC, axial SSFSE ARC, axial 3D DualEcho, axial DWI B=600, axial T1-weighted LAVA, FAT:Coronal LAVA-Flex, and coronal in and opposed phase LAVA-Flex. Thick-slab T2-weighted FRFSE-XL images were obtained for magnetic resonance cholangiopancreatography (MRCP). Maximum intensity projection 3-D reconstructions of the volumetric data were created by the technologist. Postcontrast sequences included a time course of axial T1-weig hted LAVA, FAT:Coronal LAVA-Flex, coronal in and opposed phase LAVA-Flex, and Water:Coronal LAVA-Flex . COMPARISON: CT, 09/10/2021 CONTRAST: Multihance, 20 cc FINDINGS: ABDOMEN MRI: The lung bases are clear. The heart size is normal. There are multiple stones in the gal lbladder. There is gallbladder wall thickening with a small amount of pericholecystic fluid. The live r, spleen, pancreas, and adrenal glands are normal. The right kidney is unremarkable. There are tiny cysts in the lower pole of the left kidney. There are no pathologically enlarged abdominal lymph node s. No dilated loops of bowel are identified. No abnormal enhancement is present after contrast admini stration. ABDOMEN MRCP: There is no intrahepatic or extrahepatic biliary dilatation. No stones or stricture of the common bile duct. The pancreatic duct is normal in course and caliber. IMPRESSION: 1. Cholelithiasis with findings suspicious for cholecystitis. No choledocholithiasis, intrahepatic, o r extrahepatic biliary dilatation. Reviewed, dictated and finalized at location B. IMPRESSION: 1. Cholelithiasis with findings suspicious for cholecystitis. No choledocholith iasis, intrahepatic, or extrahepatic biliary dilatation.
--- NOTE | ~2021-09-10 | CT_ITS ---
EXAMINATION: CT abdomen pelvis w con DATE: 09/10/2021 16:33 INDICATION: RUQ pain, elevated LFTs TECHNIQUE: Computed tomography (CT) of the abdomen and pelvis was performed with 100 mL Omnipaque-300 intravenous contrast. Automated exposure control and iterative reconstruction technique were employe d. The dose-length product was 1700.61 mGy-cm. COMPARISON: None. FINDINGS: Lower thorax: Unremarkable Liver: Fatty infiltration. Biliary/Gallbladder: Cholelithiasis. Fluid distended gallbladder, with minimal wall inflammation, but no pericholecystic fluid or wall thickening. Intrahepatic or duct dilatation. Wall hyperemia and inf lammatory change of the extra hepatic biliary ducts at the santa hepatis, distal ducts are normal josefa iber without obstructing stone. Pancreas: No mass or duct dilation. Spleen: Normal. Adrenals:No mass. Kidneys: Punctate right lower pole calculus. Left renal scarring. No renal mass or hydronephrosis. GI tract: No small or large bowel dilation. Normal appendix. Mesentery/Peritoneum: No ascites, mass, or free air. Scattered borderline enlarged mesentery lymph no carley measuring up to 8 mm. Retroperitoneum: No mass. Pelvis: Pelvic organs are within normal limits. Soft Tissues: Soft tissues and body wall unremarkable. Bones: No acute osseous finding. IMPRESSION: Cholelithiasis, with mild gallbladder and santa hepatic inflammatory changes, with intrahepatic bilia ry duct dilation, may reflect acute cholecystitis. Ascending cholangitis could appear similar in the appropriate clinical context. Steatosis. Reviewed, dictated and finalized at location K. IMPRESSION: Cholelithiasis, with mild gallbladder and santa hepatic inflammatory changes, w ith intrahepatic biliary duct dilation, may reflect acute cholecystitis. Ascend ing cholangitis could appear similar in the appropriate clinical context. Steat osis.
--- NOTE | ~2021-09-10 | XR_ITS ---
EXAMINATION: XR chest 1V portable Exam Date/Time: 09/11/2021 15:40 CDT HISTORY: chest pain Comparison: 11/15/2020. RESULT: Lines, tubes, and devices: None. Lungs and pleura: Clear. Cardiomediastinal silhouette: Stable cardiomediastinal silhouette. Other: No acute osseous or upper abdominal finding. IMPRESSION: No acute cardiopulmonary process. Reviewed, dictated and finalized at location K.
[2021-09-10 14:06] VITALS: BP 138/89; PULSE 68; RESP 18; TEMP 36.6; O2SAT 99
[2021-09-10 14:25] LABS: Basophils Percent Auto 0.6 % (0.2-1.2); Eosinophils Percent Auto 0.6 % (0-4.4); Hemoglobin 11.8 g/dL (12.0-15.0); Immature Granulocyte Absolute 0.01 K/mm3 (0.00-0.031); Immature Granulocyte Percent A 0.2 % (0-0.5); Lymphocytes Absolute Auto 1.56 K/mm3 (0.9-3.2); Lymphocytes Percent Auto 24.9 % (18.3-44.2); Mean Corpuscular HGB Conc 31.1 g/dl (32-36); Mean Corpuscular Hemoglobin 23.7 pg (26-34); Mean Corpuscular Volume 76.3 fl (80-100); Mean Platelet Volume 9.6 fl (7.4-10.4); Monocytes Absolute Auto 0.6 K/mm3 (0.1-0.6); Monocytes Percent Auto 9.6 % (2.6-8.5); Neutrophils Percent Auto 64.1 % (45.5-73.1); Platelet Count Result 366 k/mm3 (150-375); Red Blood Count 4.98 M/mm3 (4.2-5.4); Red Cell Distribution Width 17.5 % (11.5-14.5); White Blood Count 6.3 K/mm3 (4.5-10.0)
--- NOTE | 2021-09-10 14:33 | ED.ABDPAIN ---
HPI - Abdominal Pain General Chief Complaint: Abdominal Pain <HUEY Restrepo Last Filed: 09/10/21 19:07> Stated Complaint: abd pain, from UC <HUEY Restrepo Last Filed: 09/10/21 19:07> Time Seen by Provider: 09/10/21 14:21 <HUEY Restrepo Last Filed: 09/10/21 19:07> History of Present Illness HPI narrative: 25-year-old female here for evaluation of epigastric discomfort for the past 2 days. Patient states that she has a history of acid reflux and states this feels very similar, although today she denies relief after Tums, Pepto-Bismol and Nexium. Patient reports that she was dry heaving over the past 2 days but denies any vomiting. Also reports some diarrhea, but denies any blood in her stools, fevers, chills. <HUEY Restrepo Last Filed: 09/10/21 19:07> Related Data Home Medications: Home Medications Medication Instructions Recorded Confirmed medroxyprogesterone 150 mg/mL 150 mg IM [id number] 06/07/21 09/10/21 intramuscular suspension cephalexin 500 mg capsule 1 cap PO BID 09/10/21 09/10/21 <Mini Rios PA-C - Last Filed: 09/10/21 19:07> Allergies/Adverse Reactions: Allergies Allergy/AdvReac Type Severity Reaction Status Date / Time No Known Allergies Allergy Verified 09/10/21 13:26 <HUEY Restrepo Last Filed: 09/10/21 19:07> [facility] Past Medical History Medical History: Medical History Anxiety Depression Morbid obesity and not yet delivered PTSD (post-traumatic stress disorder) <HUEY Restrepo Last Filed: 09/10/21 19:07> Family History Family History: Family History (Updated 09/10/21 @ 20:33 by Esthela Lion RN) Grandparent Diabetes mellitus Other No pertinent family history <Mini Rios PA-C - Last Filed: 09/10/21 19:07> Social History Social History: Social History Smoking status: Current some day smoker Tobacco type: e-cigarettes/vaping Second hand tobacco smoke exposure: No Alcohol intake: never Substance use: former Substance use type: does not use Other substance usage details: marijuana use Last use: 2.5 years ago Gender identity (if verbalized by the patient): Female Spiritual care concerns: No <Mini Rios PA-C - Last Filed: 09/10/21 19:07> Course PERFORMANCE IMPROVEMENT ANALYST/PA Physician Supervision I did not see this patient but the care plan was discussed with me, labs and imaging reviewed I agree with the documentation as above <Vasyl Alvarado MD - Last Filed: 09/10/21 21:34> Vital Signs Vital signs: Vital Signs Temperature 36.6 C 09/10/21 14:06 Pulse Rate 68 09/10/21 14:06 Respiratory Rate 18 09/10/21 14:06 Blood Pressure 138/89 09/10/21 14:06 Pulse Oximetry 99 09/10/21 14:06 Oxygen Delivery Room Air 09/10/21 14:06 Temperature 36.5 C 09/10/21 20:17 Pulse Rate 47 L 09/10/21 20:17 Respiratory Rate 17 09/10/21 20:17 Blood Pressure 128/67 09/10/21 20:17 Pulse Oximetry 100 09/10/21 20:17 Oxygen Delivery Room Air 09/10/21 14:06 <Mini Rios PA-C - Last Filed: 09/10/21 19:07> Vital Signs Temperature 36.6 C 09/10/21 14:06 Pulse Rate 68 09/10/21 14:06 Respiratory Rate 18 09/10/21 14:06 Blood Pressure 138/89 09/10/21 14:06 Pulse Oximetry 99 09/10/21 14:06 Oxygen Delivery Room Air 09/10/21 14:06 Temperature 36.5 C 09/10/21 20:17 Pulse Rate 47 L 09/10/21 20:17 Respiratory Rate 17 09/10/21 20:17 Blood Pressure 128/67 09/10/21 20:17 Pulse Oximetry 100 09/10/21 20:17 Oxygen Delivery Room Air 09/10/21 14:06 <Vasyl Alvarado MD - Last Filed: 09/10/21 21:34> MDM - Abdominal Pain MDM Narrative Medical decision making narrative: 25-year-old female here for evaluation of
[2021-09-10 14:34] LABS: Alanine Aminotransferase 407 U/L (6-35); Albumin Level 4.5 g/dL (3.5-5.1); Alkaline Phosphatase 52 U/L (38-126); Anion Gap 6 mmol/L (8-16); Aspartate Amino Transferase 462 U/L (14-36); Blood Urea Nitrogen 7 mg/dL (7-17); Calcium 9.2 mg/dL (8.4-10.2); Carbon Dioxide 27 mmol/L (22-30); Chloride 106 mmol/L (98-107); Estimated CRCL calculation 153 ml/min; Estimated Glomerular Filt Rate > 60; Glucose 108 mg/dL (65-110); Lipase 305 U/L (23-300); Potassium 3.8 mmol/L (3.4-5.0); Sodium 139 mmol/L (137-145)
[2021-09-10] MEDS: SODIUM CHLORIDE 0.9% IV 1,000 ML 999 ML IV CONT (14:55)
[2021-09-10] MEDS: FAMOTIDINE 20 MG/2 ML VIAL IV PUSH (14:56)
[2021-09-10] MEDS: ONDANSETRON INJ 4 MG/2 ML VIAL IV PUSH (15:48)
[2021-09-10 16:12] LABS: Appearance Urine Clear (Clear); Bilirubin Urine 2+ (Negative); Blood Urine 3+ (Negative); Color Urine Yellow (Yellow); Glucose Urine UA Negative (Negative); Ketones Urine Negative (Negative); Leukocyte Esterase Ur Negative LEU/UL (Negative); Nitrate Urine Negative (Negative); Protein Urine Negative (Negative); pH Urine 7.5 (5.0-9.0)
[2021-09-10 16:18] LABS: Bacteria Urine Trace /hpf; Budding Yeast Urine Present /hpf; Squamous Epithelial Cell Urine Many /hpf (Few); WBC Urine 0-3 /hpf
[2021-09-10 16:19] LABS: Add Urine Microscopic? YES
[2021-09-10 18:38] VITALS: BP 150/81; PULSE 54; RESP 16; O2SAT 100
[2021-09-10 19:24] LABS: SARS-CoV-2 RNA PCR Negative
--- NOTE | 2021-09-10 19:47 | PM.IMHP ---
H&P: HPI History of Present Illness Date/Time: 09/10/21 19:47 Chief Complaint: nausea and vomiting Narrative: This is a 25-year-old female with past medical history significant for morbid obesity, patient presents to the emergency room due to nausea vomiting epigastric abdominal pain of roughly 1 day duration started the day before after dinnertime in the morning patient was able to have breakfast however she had several episodes of nausea and vomiting for the reminder of the day, patient denies any fevers, rigors, chills, no diarrhea. Pain is localized to the epigastric area and radiates bilaterally to both flanks, has not been able to eat. Patient has been in her usual state of health up until this moment she is usually able to tolerate all her meals. Preliminary workup was significant for total bili 2 AST 462 ALT 400, lipase 305 hemoglobin 11 hematocrit [address] abd/pelvis cholelithiasis, with mild gallbladder and santa hepatic inflammatory changes, with intrahepatic biliary duct dilation, may reflect acute cholecystitis, ascending cholangitis could appear similar in the appropriate clinical context steatosis.Patient is been admitted for further evaluation management and treatment. Review of Systems Review of Systems: NAUSEA, VOMITING, EPIGASTRIC ABDOMINAL PAIN. Constitutional: Constitutional: Denies chills, Denies fever(s), Denies malaise, Denies night sweats, Denies poor appetite and Denies weakness Eyes: Eyes: Denies change in vision ENT: Denies dysphagia, Denies vertigo and Denies odynophagia Cardiovascular: Cardiovascular: Denies chest pain, Denies syncope, Denies irregular heart rhythm, Denies lightheadedness, Denies palpitations and Denies dyspnea on exertion Respiratory: Respiratory: Denies chest congestion, Denies cough and Denies excessive phlegm production Gastrointestinal: Gastrointestinal: Reports abdominal pain, Denies dyspepsia, Denies heartburn, Denies diarrhea, Reports nausea and Reports vomiting Genitourinary: Genitourinary: Denies dysuria Musculoskeletal: Musculoskeletal: Denies myalgias, Denies joint swelling and Denies limited range of motion Integumentary/Breasts: Skin/Breast: Denies rash Neurologic: Denies vertigo, Denies dizziness, Denies focal weakness and Denies Sensory deficit (Neuro) Psychiatric: Psychiatric: Reports no additional psychiatric complaints and Reports as per HPI Endocrine: Endocrine: Denies cold intolerance, Denies fatigue, Denies flushing, Denies heat intolerance, Denies polyphagia, Denies polydipsia and Denies palpitations Hematologic/Lymphatic: Hematologic/Lymphatic: Reports no additional hematologic/lymphatic complaints and Reports as per HPI Allergic/Immunologic: Allergic/Immunologic: Reports no additional allergic/immunologic complaints and Reports as per HPI PMFSH Past Medical History Medical History (Updated 09/11/21 @ 13:06 by Lance Correa MD) Anxiety Depression Elevated liver enzymes Morbid obesity and not yet delivered PTSD (post-traumatic stress disorder) Family History Family History (Updated 09/10/21 @ 20:33 by Esthela Lion RN) Grandparent Diabetes mellitus Other No pertinent family history Social History Social History Smoking status: Current some day smoker Tobacco type: e-cigarettes/vaping Second hand tobacco smoke exposure: No Alcohol intake: never Substance use: former Substance use type: does not use Other substance usage details: marijuana use Last use: 2.5 years ago Gender identity (if verbalized by the patient): Female Spiritual care concerns: No Meds Home Medications and Allergies Home Medications Medication Instructions Recorded Confirmed Type medroxyprogesterone 150 mg/mL 150 mg IM [id number] 06/07/21 09/10/21 History intramuscular suspension cephalexin 500 mg capsule 1 cap PO BID 09/10/21 09/10/21 History Allergies A
--- NOTE | 2021-09-10 20:10 | ADMGEN ---
This patient, Sandra Sloan, was admitted to 2 Medical Room 258-01. Patient/family oriented to hospital policies and general routines including ID bracelet, bed and alarms, visiting hours, pain management, procedures, bathroom and other care routines, personal items, smoking policy, room service/diet, and visiting hours. Information on how to activate the Rapid Response Team has been discussed. Patient/Family are encouraged to report perceived risks to care and to ask questions if they do not understand what they are told or what they should do.
[2021-09-10 20:16] VITALS: BMI 46.7
[2021-09-10 20:17] VITALS: BP 128/67; PULSE 47; RESP 17; TEMP 36.5; O2SAT 100
[2021-09-10] MEDS: SODIUM CHLORIDE 0.9% IV 1,000 ML 150 ML IV CONT (20:48)
[2021-09-11 03:40] VITALS: BP 122/61; PULSE 56; RESP 17; TEMP 36.2; O2SAT 99
[2021-09-11] MEDS: DEXTROSE 5%/0.45% SOD CHL 1,000 ML 100 ML IV CONT ×2 (03:53→15:05)
[2021-09-11] MEDS: AMPICILLIN SULB 3 GM/NS 100 ML 3 GM/100 ML VIAL IVPB ×4 (03:53→20:53)
[2021-09-11 07:27] LABS: Basophils Absolute Auto 0.1 K/mm3 (0.0-0.1); Basophils Percent Auto 1.1 % (0.2-1.2); Eosinophils Absolute Auto 0.1 K/mm3 (0-0.3); Eosinophils Percent Auto 2.4 % (0-4.4); Hematocrit 35.7 % (37.0-47.0); Hemoglobin 11.2 g/dL (12.0-15.0); Immature Granulocyte Absolute 0.01 K/mm3 (0.00-0.031); Immature Granulocyte Percent A 0.2 % (0-0.5); Lymphocytes Absolute Auto 1.54 K/mm3 (0.9-3.2); Lymphocytes Percent Auto 33.7 % (18.3-44.2); Mean Corpuscular HGB Conc 31.4 g/dl (32-36); Mean Corpuscular Hemoglobin 23.9 pg (26-34); Mean Corpuscular Volume 76.3 fl (80-100); Mean Platelet Volume 9.8 fl (7.4-10.4); Monocytes Absolute Auto 0.3 K/mm3 (0.1-0.6); Monocytes Percent Auto 6.3 % (2.6-8.5); Neutrophils Absolute Auto 2.6 K/mm3 (1.3-6.7); Neutrophils Percent Auto 56.3 % (45.5-73.1); Platelet Count Result 317 k/mm3 (150-375); Red Blood Count 4.68 M/mm3 (4.2-5.4); Red Cell Distribution Width 17.5 % (11.5-14.5); White Blood Count 4.6 K/mm3 (4.5-10.0)
[2021-09-11 07:37] LABS: Alanine Aminotransferase 331 U/L (6-35); Albumin Level 3.6 g/dL (3.5-5.1); Alkaline Phosphatase 56 U/L (38-126); Anion Gap 2 mmol/L (8-16); Aspartate Amino Transferase 203 U/L (14-36); Bilirubin,Total 1.7 mg/dL (0.2-1.3); Blood Urea Nitrogen 6 mg/dL (7-17); Calcium 8.5 mg/dL (8.4-10.2); Carbon Dioxide 26 mmol/L (22-30); Chloride 110 mmol/L (98-107); Estimated CRCL calculation 154 ml/min; Estimated Glomerular Filt Rate > 60; Glucose 103 mg/dL (65-110); Lipase 179 U/L (23-300); Potassium 3.9 mmol/L (3.4-5.0); Sodium 138 mmol/L (137-145)
--- NOTE | 2021-09-11 11:22 | WPDGICN ---
Assessment and Plan Assessment and plan (1) Cholecystitis: Code(s): K81.9 - Cholecystitis, unspecified Status: Acute Assessment and Plan: it seems that she has been having biliary colic since her better today, on antibiotics and surgery on board will get MRCP to assess if any bile duct stones or abnormal findings, then will decide if ercp is warranted (2) Nausea & vomiting: Code(s): R11.2 - Nausea with vomiting, unspecified Status: Acute Assessment and Plan: better ok to advance diet (3) RUQ pain: Code(s): R10.11 - Right upper quadrant pain Status: Acute Assessment and Plan: resolved (4) Elevated liver enzymes: Code(s): R74.8 - Abnormal levels of other serum enzymes Status: Acute Assessment and Plan: trending down (5) Morbid obesity: Code(s): E66.01 - Morbid (severe) obesity due to excess calories Status: Acute GI Consult Note Consult date/time: 09/11/21 11:22 Reason for consult: upper abdominal pain HPI: Sandra Sloan is a 25 year old female with no major medical problems who has been having intermittent abdominal discomfort that she thought could have been related to indigestion for last 6-7 months after she gave for which she has been taking pepcid, peptobismol, etc. She came here with worsening pain in ruq that was severe for last 2 days, also nause but no vomiting. Blood work showed elevated liver enzymes with bili 2, transaminase 400. CT scan showed cholelithiasis, with mild gallbladder and santa hepatic inflammatory changes, with intrahepatic biliary duct dilation, may reflect acute cholecystitis. Today she is asymptomatc without any more pain. She had normal wbc, started on abx? Review of Systems Review of Systems: All systems reviewed & are unremarkable except as noted in HPI and below Constitutional: Constitutional: Reports no additional constitutional complaints, Denies chills and Denies fever(s) Eyes: Eyes: Reports no additional eye complaints ENT: Reports system reviewed and no additional complaints, except as documented Cardiovascular: Cardiovascular: Reports no additional cardiovascular complaints Respiratory: Respiratory: Reports no additional respiratory complaints Gastrointestinal: Gastrointestinal: Reports as per HPI, Reports abdominal pain and Reports nausea Genitourinary: Genitourinary: Reports no additional female genitourinary complaints, Denies dysuria, Denies pelvic pain and Denies flank pain Musculoskeletal: Musculoskeletal: Reports no additional musculoskeletal complaints Integumentary/Breasts: Skin/Breast: Reports system reviewed and no additional complaints, except as docu Neurologic: Reports system reviewed and no additional complaints, except as documented Psychiatric: Psychiatric: Reports no additional psychiatric complaints Allergic/Immunologic: Allergic/Immunologic: Reports no additional allergic/immunologic complaints PMFSH Past Medical History Medical History (Updated 09/11/21 @ 11:26 by Lyndon Gray MD) Anxiety Depression Elevated liver enzymes Morbid obesity and not yet delivered PTSD (post-traumatic stress disorder) Family History Family History (Updated 09/10/21 @ 20:33 by Esthela Lion RN) Grandparent Diabetes mellitus Other No pertinent family history Social History Social History Smoking status: Current some day smoker Tobacco type: e-cigarettes/vaping Second hand tobacco smoke exposure: No Alcohol intake: never Substance use: former Substance use type: does not use Other substance usage details: marijuana use Last use: 2.5 years ago Gender identity (if verbalized by the patient): Female Spiritual care concerns: No Meds Home Medications and Allergies Home Medications Medication Instructions Recorded Confirmed Type medroxyprog
--- NOTE | 2021-09-11 12:58 | PM.CNGS ---
Assessment and Plan Assessment and plan (1) Cholelithiasis with chronic cholecystitis: Code(s): K80.10 - Calculus of gallbladder with chronic cholecystitis without obstruction Status: Acute Assessment and Plan: Patient feeling better. I discussed with Dr. Rosales. Okay to start a diet from my perspective. MRCP will likely be done tomorrow as today is a holiday. Explained to patient that she will eventually need laparoscopic cholecystectomy but MRI needs to be done to evaluate for possible common bile duct stones. Thank you for asking me to see your in consultation. I will follow along with you. (2) Elevated liver enzymes: Code(s): R74.8 - Abnormal levels of other serum enzymes Status: Acute Assessment and Plan: MRCP ordered and pending (3) Morbid obesity: Code(s): E66.01 - Morbid (severe) obesity due to excess calories Status: Acute Assessment and Plan: Increases surgical risk History of Present Illness Consult details Consult date: 09/11/21 Reason for consult: abdominal pain Narrative: Patient is a 25-year-old woman who started having epigastric abdominal pain back in January, following the of her child. She thought this was some reflux or heartburn. It has happened on or off but never too severe. On September 08, the patient had a frozen dinner which she thinks may have been some type of roast like roast beef, and then about an hour and a half later experienced excruciating epigastric abdominal pain with nausea. No emesis. She came to the emergency room. she was noted to have right upper quadrant tenderness. She also had elevated LFTs and a slightly elevated lipase. CT scan showed gallstones and some biliary ductal dilatation. Patient received analgesics and has felt better since then. This morning she has no pain at all. She is hungry. She is seen now in consultation. Dr. Rosales is seeing her for gastroenterology and an MRCP has been ordered. Review of Systems Review of Systems: All systems reviewed & are unremarkable except as noted in HPI and below Constitutional: Constitutional: Denies chills and Denies fever(s) Cardiovascular: Cardiovascular: Denies chest pain, Denies diaphoresis, Denies dyspnea and Denies paroxysmal nocturnal dyspnea Respiratory: Respiratory: Denies chest congestion, Denies cough and Denies dyspnea Gastrointestinal: Gastrointestinal: Reports as per HPI, Reports abdominal pain (Epigastric), Reports heartburn and Reports nausea Integumentary/Breasts: Skin/Breast: Denies lesions and Denies rash PMFSH Past Medical History Medical History (Updated 09/11/21 @ 13:06 by Lance Correa MD) Anxiety Depression Elevated liver enzymes Morbid obesity and not yet delivered PTSD (post-traumatic stress disorder) Family History Family History (Updated 09/10/21 @ 20:33 by Esthela Lion, RN) Grandparent Diabetes mellitus Other No pertinent family history Social History Social History Smoking status: Current some day smoker Tobacco type: e-cigarettes/vaping Second hand tobacco smoke exposure: No Alcohol intake: never Substance use: former Substance use type: does not use Other substance usage details: marijuana use Last use: 2.5 years ago Gender identity (if verbalized by the patient): Female Spiritual care concerns: No Meds Home Medications and Allergies Home Medications Medication Instructions Recorded Confirmed Type medroxyprogesterone 150 mg/mL 150 mg IM [id number] 06/07/21 09/10/21 History intramuscular suspension cephalexin 500 mg capsule 1 cap PO BID 09/10/21 09/10/21 History Allergies Allergy/AdvReac Type Severity Reaction Status Date / Time No Known Allergies Allergy Verified 09/10/21 13:26 Vital Signs Vital Signs - 24 hr 09/10/21 14:06 09/10/21 18:38 09/10/21 20:17 Temperature 36.6 C 36.5 C Pulse R
--- NOTE | 2021-09-11 13:46 | PM.IMPN ---
Progress Note: A&P Assessment and Plan (1) Cholelithiasis with chronic cholecystitis: Code(s): K80.10 - Calculus of gallbladder with chronic cholecystitis without obstruction Status: Acute Assessment and Plan: -CT shows cholelithiasis w/ mild gallbladder and santa hepatic inflammatory changes, w/ intrahepatic biliary duct dilation, may reflect cholecystitis -no leukocytosis, fevers, or tachycardia -symptoms have largely resolved at this point -GI and general surgery consulted -continue Unasyn -MRCP tomorrow -per general surgery will likely need elective cholecystectomy outpatient (2) Elevated liver enzymes: Code(s): R74.8 - Abnormal levels of other serum enzymes Status: Acute Assessment and Plan: -MRCP tomorrow -trending down -GI consulted Subjective Date/time seen: 09/11/21 13:46 Interval history: 25 yo female w/ hx of anxiety, depression, morbid obesity, admitted for cholelithiasis and possible cholecystitis. Pt is feeling much better at this time. She denies abdominal pain, N/V. She is tolerating full liquid diet without difficulty. No diarrhea. Having MRCP tomorrow. Review of Systems Review of Systems: All systems reviewed & are unremarkable except as noted in HPI and below Exam Narrative: General: No acute distress, non toxic appearing, morbidly obese Eyes: PERRL, no scleral icterus HEENT: NCAT, external ears normal, MMM Respiratory: No respiratory distress, Lungs CTA bilaterally, no wheezing Cardiovascular: RRR, no murmur Abdominal: Soft, nontender, non distended, no rebound or guarding Musculoskeletal: Moves all 4 extremities, no edema Neurological: A/Ox3, speech clear, no facial asymmetry Skin: Warm, dry, no rashes Psychiatric: Normal affect, normal mood Objective Data Vital Signs Vital Signs: Vital Signs - 24 hr 09/10/21 14:06 09/10/21 18:38 09/10/21 20:17 Temperature 98 F 97.7 F Pulse Rate 68 54 L 47 L Respiratory Rate 18 16 17 Blood Pressure 138/89 150/81 H 128/67 Pulse Oximetry 99 100 100 Oxygen Delivery Room Air 09/11/21 03:40 09/11/21 08:40 Temperature 97.2 F L Pulse Rate 56 L Respiratory Rate 17 Blood Pressure 122/61 Pulse Oximetry 99 Oxygen Delivery Room Air Intake/Output Intake/Output: Intake & Output 09/08/21 09/09/21 09/10/21 09/11/21 23:59 23:59 23:59 23:59 Intake Total 1000 1120 Balance 1000 1120 Meds/Results Medications: Active Medications Generic Name Dose Route Start Last Admin Trade Name Freq PRN Reason Stop Dose Admin Enoxaparin Sodium 40 mg 09/11/21 09:00 Enoxaparin 40 Mg/0.4 Ml Syringe SUB-Q DAILY TIRSO Hydromorphone HCl 0.5 mg 09/10/21 18:17 Hydromorphone Hcl Inj (*Crx) 1 Mg/Ml Syr IV PUSH Q4H PRN Pain Rated 7-10 Dextrose/Sodium Chloride 1,000 mls @ 100 mls/hr 09/11/21 02:55 09/11/21 03:53 Dextrose 5% Sodium Chloride 0.45% IV CONT 100 mls/hr .Q10H TIRSO Administration Ampicillin Sodium/Sulbactam Sodium 3 gm in 100 mls @ 200 mls/hr 09/11/21 03:00 09/11/21 10:00 Unasyn 3 Gm/Ns 100 Ml IVPB Infused Q6H TIRSO Infusion Ondansetron HCl 4 mg 09/10/21 18:17 Ondansetron Inj 4 Mg/2 Ml Vial IV PUSH Q4H PRN Nausea Radiology Results: ITS Impressions Abdomen/Pelvis CT 09/10/21 16:47 IMPRESSION: Cholelithiasis, with mild gallbladder and santa hepatic inflammatory changes, with intrahepatic biliary duct dilation, may reflect acute cholecystitis. Ascending cholangitis could appear similar in the appropriate clinical context. Steatosis. Labs Labs: Laboratory Results - last 24 hr 09/10/21 09/10/21 09/10/21 14:13 14:13 16:07 WBC 6.3 RBC 4.98 Hgb 11.8 L Hct 38.0 MCV 76.3 L MCH 23.7 L MCHC 31.1 L RDW 17.5 H Plt Count 366 MPV 9.6 Immature Gran % (Auto) 0.2 Neut % (Auto) 64.1 Lymph % (Auto) 24.9 Simpson % (Auto) 9.6 H Eos % (Auto) 0.6 Baso % (
[2021-09-11 15:15] VITALS: BP 130/71; PULSE 64; RESP 16; TEMP 36.6; O2SAT 100
--- NOTE | 2021-09-11 15:25 | ECG_ITS ---
Measurements Intervals [place] Rate: 63 P: 21 MT: 172 QRS: 10 QRSD: 99 T: 1 QT: 406 QTc: 417 Interpretive Statements SINUS RHYTHM BASELINE WANDER- I, II, AVR, AVF, V4-V6 NORMAL ECG Electronically Signed On 09-11-2021 20:48:53 CDT by Chino Brennan D.O.
[2021-09-11 20:51] VITALS: BP 133/70; PULSE 70; RESP 20; TEMP 36.6; O2SAT 99
[2021-09-12] MEDS: AMPICILLIN SULB 3 GM/NS 100 ML 3 GM/100 ML VIAL IVPB ×2 (02:43→08:43)
[2021-09-12] MEDS: DEXTROSE 5%/0.45% SOD CHL 1,000 ML 100 ML IV CONT ×2 (02:43→17:10)
[2021-09-12 04:42] VITALS: BP 123/58; PULSE 68; RESP 18; TEMP 36.3; O2SAT 99
[2021-09-12 06:23] LABS: Basophils Absolute Auto 0.1 K/mm3 (0.0-0.1); Basophils Percent Auto 0.9 % (0.2-1.2); Eosinophils Absolute Auto 0.2 K/mm3 (0-0.3); Eosinophils Percent Auto 3.5 % (0-4.4); Hematocrit 35.9 % (37.0-47.0); Immature Granulocyte Absolute 0.01 K/mm3 (0.00-0.031); Immature Granulocyte Percent A 0.2 % (0-0.5); Lymphocytes Absolute Auto 2.07 K/mm3 (0.9-3.2); Lymphocytes Percent Auto 36.5 % (18.3-44.2); Mean Corpuscular HGB Conc 30.6 g/dl (32-36); Mean Corpuscular Hemoglobin 23.7 pg (26-34); Mean Corpuscular Volume 77.4 fl (80-100); Monocytes Absolute Auto 0.3 K/mm3 (0.1-0.6); Monocytes Percent Auto 5.1 % (2.6-8.5); Neutrophils Absolute Auto 3.1 K/mm3 (1.3-6.7); Neutrophils Percent Auto 53.8 % (45.5-73.1); Platelet Count Result 330 k/mm3 (150-375); Red Blood Count 4.64 M/mm3 (4.2-5.4); Red Cell Distribution Width 17.9 % (11.5-14.5); White Blood Count 5.7 K/mm3 (4.5-10.0)
[2021-09-12 06:39] LABS: Alanine Aminotransferase 238 U/L (6-35); Albumin Level 3.7 g/dL (3.5-5.1); Alkaline Phosphatase 51 U/L (38-126); Anion Gap 5 mmol/L (8-16); Aspartate Amino Transferase 66 U/L (14-36); Bilirubin,Total 0.4 mg/dL (0.2-1.3); Blood Urea Nitrogen 5 mg/dL (7-17); Calcium 8.4 mg/dL (8.4-10.2); Carbon Dioxide 24 mmol/L (22-30); Chloride 109 mmol/L (98-107); Estimated CRCL calculation 177 ml/min; Estimated Glomerular Filt Rate > 60; Glucose 99 mg/dL (65-110); Lipase 117 U/L (23-300); Potassium 3.9 mmol/L (3.4-5.0); Sodium 138 mmol/L (137-145)
--- NOTE | 2021-09-12 13:17 | PM.PNGS ---
Progress Note: A&P Assessment and Plan (1) Cholelithiasis with chronic cholecystitis: Code(s): K80.10 - Calculus of gallbladder with chronic cholecystitis without obstruction Status: Acute Assessment and Plan: MRCP was negative for common bile duct stones. I discussed the findings with the patient and have recommended going ahead with laparoscopic cholecystectomy. We will do a cholangiogram at the time of the cholecystectomy. I explained the procedure the risks the benefits. I explained the usual recovery and potential complications. All questions were answered. Plan to proceed tomorrow under general anesthesia. (2) Elevated liver enzymes: Code(s): R74.8 - Abnormal levels of other serum enzymes Status: Acute Assessment and Plan: Continue to improve. MRCP negative for common bile duct stones. Plan as above. Subjective Subjective Date/Time Seen: 09/12/21 13:17 Patient reports: no new complaints, pain is less (No abdominal pain), tolerating a regular diet (Low-fat diet) and afebrile Interval history: No new complaints. No recurrence of abdominal pain. Feels good. Review of Systems Review of Systems: All systems reviewed & are unremarkable except as noted in HPI and below (HPI and those items noted below) Constitutional: Constitutional: Denies chills and Denies fever(s) Cardiovascular: Cardiovascular: Denies chest pain, Denies diaphoresis, Denies dyspnea and Denies paroxysmal nocturnal dyspnea Respiratory: Respiratory: Denies chest congestion, Denies cough and Denies dyspnea Integumentary/Breasts: Skin/Breast: Denies lesions and Denies rash Exam Const: General: comfortable and no acute distress; No confusion Orientation/consciousness: patient oriented x3 and No confusion GI: Inspection: normal to inspection, non-distended and no visible herniation GI Palp: Yes Soft to palpation, No Tenderness to palpation present (GI), No Guarding due to palpation present (GI), No Hernia present, No Palpable mass present and No Rebound tenderness present Auscultation: normal bowel sounds Neuro: General: patient oriented x3, no focal motor deficits and No confusion Extrem: General: no calf tenderness and no edema Psych: Affect: normal affect Insight: Good insight present (Psych) Judgement: Good judgement present (Psych) Objective Data Vital Signs Vital Signs: Vital Signs - 24 hr 09/11/21 15:15 09/11/21 20:51 09/12/21 04:42 Temperature 36.6 C 36.6 C 36.3 C L Pulse Rate 64 70 68 Respiratory Rate 16 20 18 Blood Pressure 130/71 133/70 123/58 L Pulse Oximetry 100 99 99 Oxygen Delivery 09/12/21 08:00 Temperature Pulse Rate Respiratory Rate Blood Pressure Pulse Oximetry Oxygen Delivery Room Air Intake/Output Intake/Output: Intake & Output 09/09/21 09/10/21 09/11/21 09/12/21 23:59 23:59 23:59 23:59 Intake Total 1000 2880 1340 Balance 1000 2880 1340 Meds/Results Medications: Active Medications Generic Name Dose Route Start Last Admin Trade Name Freq PRN Reason Stop Dose Admin Hydrocodone Bitart/Acetaminophen 1 tab 09/11/21 16:20 Hydrocodone/Acetaminophen (*Crx) 10-325 Mg Tablet PO Q4H PRN Pain Rated 7-10 Hydrocodone Bitart/Acetaminophen 1 tab 09/11/21 16:20 Hydrocodone/Acetaminophen (*Crx) 5-325 Mg Tablet PO Q4H PRN Pain Rated 4-6 Enoxaparin Sodium 40 mg 09/11/21 09:00 Enoxaparin 40 Mg/0.4 Ml Syringe SUB-Q DAILY TRISO Dextrose/Sodium Chloride 1,000 mls @ 100 mls/hr 09/11/21 02:55 09/12/21 02:43 Dextrose 5% Sodium Chloride 0.45% IV CONT 100 mls/hr .Q10H TIRSO Administration Ampicillin Sodium/Sulbactam Sodium 3 gm in 100 mls @ 200 mls/hr 09/11/21 03:00 09/12/21 09:30 Unasyn 3 Gm/Ns 100 Ml IVPB Infused Q6H TIRSO Infusion Ondansetron HCl 4 mg 09/10/21 18:17 Ondansetron Inj 4 Mg/2 Ml Vial IV PUSH Q4H PRN Nausea Radiology Results: ITS Impressions Abdomen/Pelvis CT
--- NOTE | 2021-09-12 13:27 | PM.IMPN ---
Progress Note: A&P Assessment and Plan (1) Cholecystitis: Code(s): K81.9 - Cholecystitis, unspecified Status: Acute Assessment and Plan: - OR tomorrow with Dr. Correa for Acute Cholecystitis - Continue IVF of D5 1/2 NS at 100 ml/hr - NPO after MN - pain control prn - Continue Ancef - Monitor labs and VS,. (2) Nausea & vomiting: Code(s): R11.2 - Nausea with vomiting, unspecified Status: Acute Assessment and Plan: - See Plan for Problem #1 - PRN Anti-emetics as needed. (3) RUQ pain: Code(s): R10.11 - Right upper quadrant pain Status: Acute Assessment and Plan: - 2/2 Cholecystitis. - See above plan for problem #1. (4) Morbid obesity: Code(s): E66.01 - Morbid (severe) obesity due to excess calories Status: Acute Assessment and Plan: - Recommend diet and lifestyle modifications post operation. Subjective Date/time seen: 09/12/21 0930 This pt. is examined in interval assessment this morning at the bedside after being admitted to the hospital with biliary colic and it was found that she has Cholelithiasis. She is of note 7 months post-. She underwent MRCP today that was negative for Choledo, but still requires resection of the Gall Bladder. She has opted to stay in the hospital and have the procedure tomorrow as her MRCP was suspicious for Cholecystitis. She currently denies any acute pain and we are going to attempt to increase her diet today. No new complaints of dyspnea, N/V/D, CP. Review of Systems Review of Systems: All systems reviewed & are unremarkable except as noted in HPI and below Exam Narrative: General: No acute distress, non toxic appearing, morbidly obese Eyes: PERRL, no scleral icterus HEENT: NCAT, external ears normal, MMM Respiratory: No respiratory distress, Lungs CTA bilaterally, no wheezing Cardiovascular: RRR, no murmur Abdominal: Soft, nontender, non distended, no rebound or guarding Musculoskeletal: Moves all 4 extremities, no edema Neurological: A/Ox3, speech clear, no facial asymmetry Skin: Warm, dry, no rashes Psychiatric: Normal affect, normal mood Objective Data Vital Signs Vital Signs: Vital Signs - 24 hr 09/11/21 15:15 07/04/22 20:51 09/12/21 04:42 Temperature 97.8 F 97.9 F 97.4 F L Pulse Rate 64 70 68 Respiratory Rate 16 20 18 Blood Pressure 130/71 133/70 123/58 L Pulse Oximetry 100 99 99 Oxygen Delivery 09/12/21 08:00 Temperature Pulse Rate Respiratory Rate Blood Pressure Pulse Oximetry Oxygen Delivery Room Air Intake/Output Intake/Output: Intake & Output 09/09/21 09/10/21 09/11/21 09/12/21 23:59 23:59 23:59 23:59 Intake Total 1000 2880 1340 Balance 1000 2880 1340 Meds/Results Medications: Active Medications Generic Name Dose Route Start Last Admin Trade Name Freq PRN Reason Stop Dose Admin Hydrocodone Bitart/Acetaminophen 1 tab 09/11/21 16:20 Hydrocodone/Acetaminophen (*Crx) 10-325 Mg Tablet PO Q4H PRN Pain Rated 7-10 Hydrocodone Bitart/Acetaminophen 1 tab 09/11/21 16:20 Hydrocodone/Acetaminophen (*Crx) 5-325 Mg Tablet PO Q4H PRN Pain Rated 4-6 Enoxaparin Sodium 40 mg 09/11/21 09:00 Enoxaparin 40 Mg/0.4 Ml Syringe SUB-Q DAILY TIRSO Dextrose/Sodium Chloride 1,000 mls @ 100 mls/hr 09/11/21 02:55 09/12/21 02:43 Dextrose 5% Sodium Chloride 0.45% IV CONT 100 mls/hr .Q10H TIRSO Administration Ampicillin Sodium/Sulbactam Sodium 3 gm in 100 mls @ 200 mls/hr 09/11/21 03:00 09/12/21 09:30 Unasyn 3 Gm/Ns 100 Ml IVPB Infused Q6H TIRSO Infusion Cefazolin Sodium 100 mls @ 200 mls/hr 09/12/21 13:15 Ancef 3 Gm/D5w 100 Ml IVPB 09/12/21 13:44 ONCE ONE Ondansetron HCl 4 mg 09/10/21 18:17 Ondansetron Inj 4 Mg/2 Ml Vial IV PUSH Q4H PRN Nausea Radiology Results: ITS Impressions Abdomen/Pelvis CT 09/10/21 16:47 IMPRESSION: Cholelithiasis, with mild gallbladder
--- NOTE | 2021-09-12 13:44 | WPDGIPROGNO ---
Progress Note: A&P Assessment and Plan (1) Cholecystitis: Code(s): K81.9 - Cholecystitis, unspecified Status: Acute Assessment and Plan: MRCP reviewed, showed cholecystitis without bile duct stones no need of ercp timing of lap cholecystectomy per surgery doing much better with abx [place], call if questions (2) Nausea & vomiting: Code(s): R11.2 - Nausea with vomiting, unspecified Status: Acute Assessment and Plan: resolved (3) Elevated liver enzymes: Code(s): R74.8 - Abnormal levels of other serum enzymes Status: Acute Assessment and Plan: trending down, from cholecystitis normalization of bili- ? already passed stone (4) RUQ pain: Code(s): R10.11 - Right upper quadrant pain Status: Acute Assessment and Plan: resolved (5) Morbid obesity: Code(s): E66.01 - Morbid (severe) obesity due to excess calories Status: Acute Assessment and Plan: Diet and lifestyle modification Subjective Date/time seen: 09/12/21 13:44 Interval history: patient is asymptomatic today, no more pain Review of Systems Review of Systems: All systems reviewed & are unremarkable except as noted in HPI and below Exam Const: General: healthy appearing, no acute distress and alert Nutritional Appearance: well nourished and obese morbidly obese Orientation/consciousness: patient oriented x3 Limitations: no limitations HENMT: Head: normal to inspection Ears: external ears normal Eyes: General: appearance normal, both eyes and all related structures Pupils: Equal, round and reactive pupils present Neck: Neck: normal visual inspection Chest: Chest palpation & inspection: normal inspection of the chest Resp: Effort & Inspection: normal respiratory effort and no use of accessory muscles Auscultation: clear to auscultation bilaterally, no crackles and no rales Cardio: Rate: regular rate Rhythm: regular rhythm GI: Inspection: normal to inspection and Pannus present GI Palp: Yes Soft to palpation Auscultation: normal bowel sounds Back/Spine/Pelvis: Back: no CVA tenderness Skin: General skin exam: normal color Rashes: no rashes Neuro: General: patient oriented x3, moves all extremities and no focal motor deficits Cranial nerves: Yes Equal, round and reactive pupils present Speech: normal speech Extrem: General: normal to inspection and full ROM Psych: Appearance: grossly normal and well kempt Mental Status: mental status grossly normal Affect: normal affect Attitude: cooperative Thought content: Yes Normal thought content present Objective Data Vital Signs Vital Signs: Vital Signs - 24 hr 09/11/21 15:15 09/11/21 20:51 09/12/21 04:42 Temperature 97.8 F 97.9 F 97.4 F L Pulse Rate 64 70 68 Respiratory Rate 16 20 18 Blood Pressure 130/71 133/70 123/58 L Pulse Oximetry 100 99 99 Oxygen Delivery 09/12/21 08:00 Temperature Pulse Rate Respiratory Rate Blood Pressure Pulse Oximetry Oxygen Delivery Room Air Intake/Output Intake/Output: Intake & Output 09/09/21 09/10/21 09/11/21 09/12/21 23:59 23:59 23:59 23:59 Intake Total 1000 2880 1340 Balance 1000 2880 1340 Meds/Results Medications: Active Medications Generic Name Dose Route Start Last Admin Trade Name Freq PRN Reason Stop Dose Admin Hydrocodone Bitart/Acetaminophen 1 tab 09/11/21 16:20 Hydrocodone/Acetaminophen (*Crx) 10-325 Mg Tablet PO Q4H PRN Pain Rated 7-10 Hydrocodone Bitart/Acetaminophen 1 tab 09/11/21 16:20 Hydrocodone/Acetaminophen (*Crx) 5-325 Mg Tablet PO Q4H PRN Pain Rated 4-6 Enoxaparin Sodium 40 mg 09/11/21 09:00 Enoxaparin 40 Mg/0.4 Ml Syringe SUB-Q DAILY TIRSO Dextrose/Sodium Chloride 1,000 mls @ 100 mls/hr 09/11/21 02:55 09/12/21 02:43 Dextrose 5% Sodium Chloride 0.45% IV CONT 100 mls/hr .Q10H TIRSO Administration Ondansetron HCl 4 mg 09/10/21 18:17
[2021-09-12 15:03] VITALS: BP 136/71; PULSE 68; RESP 18; TEMP 36.6; O2SAT 97
[2021-09-12 20:33] VITALS: BP 129/66; PULSE 71; RESP 20; TEMP 36.5; O2SAT 100
[2021-09-13] VITALS (14 sets, daily range): BP systolic 125–150; BP diastolic 59–83; PULSE 52–65; RESP 14–22; TEMP 36.1–36.8; O2SAT 95–100
[2021-09-13] MEDS: DEXTROSE 5%/0.45% SOD CHL 1,000 ML 100 ML IV CONT (03:25)
[2021-09-13 06:17] LABS: Basophils Percent Auto 0.7 % (0.2-1.2); Eosinophils Absolute Auto 0.2 K/mm3 (0-0.3); Eosinophils Percent Auto 2.7 % (0-4.4); Hematocrit 35.3 % (37.0-47.0); Hemoglobin 11.3 g/dL (12.0-15.0); Immature Granulocyte Absolute 0.01 K/mm3 (0.00-0.031); Immature Granulocyte Percent A 0.2 % (0-0.5); Lymphocytes Absolute Auto 1.98 K/mm3 (0.9-3.2); Lymphocytes Percent Auto 33.7 % (18.3-44.2); Mean Corpuscular Hemoglobin 24.2 pg (26-34); Mean Corpuscular Volume 75.6 fl (80-100); Mean Platelet Volume 9.8 fl (7.4-10.4); Monocytes Absolute Auto 0.4 K/mm3 (0.1-0.6); Monocytes Percent Auto 6.1 % (2.6-8.5); Neutrophils Absolute Auto 3.3 K/mm3 (1.3-6.7); Neutrophils Percent Auto 56.6 % (45.5-73.1); Platelet Count Result 341 k/mm3 (150-375); Red Blood Count 4.67 M/mm3 (4.2-5.4); Red Cell Distribution Width 17.8 % (11.5-14.5); White Blood Count 5.9 K/mm3 (4.5-10.0)
[2021-09-13 06:37] LABS: Alanine Aminotransferase 163 U/L (6-35); Albumin Level 3.7 g/dL (3.5-5.1); Alkaline Phosphatase 50 U/L (38-126); Anion Gap 8 mmol/L (8-16); Aspartate Amino Transferase 36 U/L (14-36); Bilirubin,Total 0.3 mg/dL (0.2-1.3); Blood Urea Nitrogen 6 mg/dL (7-17); Calcium 8.5 mg/dL (8.4-10.2); Carbon Dioxide 21 mmol/L (22-30); Chloride 108 mmol/L (98-107); Estimated CRCL calculation 177 ml/min; Estimated Glomerular Filt Rate > 60; Glucose 94 mg/dL (65-110); Potassium 3.8 mmol/L (3.4-5.0); Sodium 137 mmol/L (137-145)
--- NOTE | 2021-09-13 07:17 | WPDHPUPDATE1 ---
History and Physical Update Update Date/Time: 09/13/21 07:17 History and Physical has been reviewed, including an updated exam of the patient. There are NO changes in the patient's condition. Risks, benefits, and alternatives have been discussed and questions answered. Patient agrees to proceed with procedure.
--- NOTE | 2021-09-13 08:10 | WPDANESEPPF ---
Anes - Initial Pre Proc Eval Procedure: Operation Date: 09/13/21 12:30 Proposed Procedures p Laparoscopic Cholecystectomy With Intraoperative Cholangiograms - Lance Correa MD Date/Time: 09/13/21 08:10 Surgeon: Ghada Torres PA-C Pre Op Diagnosis: Cholecystitis Patient Data Age: 25 Gender: F Height: 1.7 m Weight: 135.5 kg Last Vital Signs Temp 98.2 F 09/13/21 04:15 Pulse 65 09/13/21 04:15 Resp 20 09/13/21 04:15 BP 126/67 09/13/21 04:15 Pulse Ox 95 09/13/21 04:15 O2 Del Method Room Air 09/12/21 08:00 Allergies Allergy/AdvReac Type Severity Reaction Status Date / Time No Known Allergies Allergy Verified 09/13/21 10:38 Home Medications Medication Instructions Recorded Confirmed Type medroxyprogesterone 150 mg/mL 150 mg IM [id number] 06/07/21 09/10/21 History intramuscular suspension cephalexin 500 mg capsule 1 cap PO BID 09/10/21 09/10/21 History Laboratory Tests 09/12/21 09/13/21 09/13/21 13:28 05:28 05:28 WBC 5.9 K/mm3 K/mm3 (4.5-10.0) RBC 4.67 M/mm3 M/mm3 (4.2-5.4) Hgb 11.3 g/dL L g/dL (12.0-15.0) Hct 35.3 % L % (37.0-47.0) MCV 75.6 fl L fl (80-100) MCH 24.2 pg L pg (26-34) MCHC 32.0 g/dl g/dl (32-36) RDW 17.8 % H % (11.5-14.5) Plt Count 341 k/mm3 k/mm3 (150-375) MPV 9.8 fl fl (7.4-10.4) Immature Gran % (Auto) 0.2 % % (0-0.5) Neut % (Auto) 56.6 % % (45.5-73.1) Lymph % (Auto) 33.7 % % (18.3-44.2) Smyth % (Auto) 6.1 % % (2.6-8.5) Eos % (Auto) 2.7 % % (0-4.4) Baso % (Auto) 0.7 % % (0.2-1.2) Lymph # (Auto) 1.98 K/mm3 K/mm3 (0.9-3.2) Smyth # (Auto) 0.4 K/mm3 K/mm3 (0.1-0.6) Eos # (Auto) 0.2 K/mm3 K/mm3 (0-0.3) Baso # (Auto) 0.0 K/mm3 K/mm3 (0.0-0.1) Abs Immat Gran (auto) 0.01 K/mm3 K/mm3 (0.00-0.031) Absolute Neuts (auto) 3.3 K/mm3 K/mm3 (1.3-6.7) Absolute Nucleated RBC 0.0 K/mm3 K/mm3 (0.0-0.012) Nucleated RBC % 0.0 % % (0.0-0.2) Sodium 137 mmol/L mmol/L (137-145) Potassium 3.8 mmol/L mmol/L (3.4-5.0) Chloride 108 mmol/L H mmol/L (98-107) Carbon Dioxide 21 mmol/L L mmol/L (22-30) Anion Gap 8 mmol/L mmol/L (8-16) BUN 6 mg/dL L mg/dL (7-17) Creatinine 0.60 mg/dL L mg/dL (0.7-1.0) Estim Creat Clear Calc 177 ml/min ml/min Estimated GFR > 60 (59 - ) Glucose 94 mg/dL mg/dL (65-110) Calcium 8.5 mg/dL mg/dL (8.4-10.2) Magnesium 2.0 mg/dL mg/dL (1.6-2.3) Total Bilirubin 0.3 mg/dL mg/dL (0.2-1.3) AST 36 U/L U/L (14-36) ALT 163 U/L H U/L (6-35) Alkaline Phosphatase 50 U/L U/L (38-126) Total Protein 7.0 g/dL g/dL (6.3-8.2) Albumin 3.7 g/dL g/dL (3.5-5.1) Blood Type A Positive Antibody Screen Negative Patient hx anesthesia problems: none Family hx anesthesia problems: none Results Review: All pre-operative results and documents have been reviewed as part of the pre-operative evaluation. [facility] Past Medical History Medical History (Updated 09/11/21 @ 13:06 by Lance Correa MD) Anxiety Depression Elevated liver enzymes Morbid obesity and not yet delivered PTSD (post-traumatic stress disorder) Family History Family History (Updated 09/10/21 @ 20:33 by Esthela Lion RN) Grandparent Diabetes mellitus Other No pertinent family history Social History Social History Smoking status: Current some day smoker Tobacco type: e-cigarettes/vaping Second hand tobacco smoke exposure: No Alcohol intake: never Substance use: former Substance use type: does not use Other brito
[2021-09-13] MEDS: LACTATED RINGERS 1,000 ML 30 ML IV CONT ×2 (10:46→13:06)
[2021-09-13] MEDS: ceFAZolin 3 GM/D5W 100 ML 100 ML IVPB (11:32)
[2021-09-13] MEDS: LIDO 1%/EPINEPHRINE/PF 1:200,000 30 ML VIAL XX (12:21)
--- NOTE | 2021-09-13 13:09 | W.PM.PROC2 ---
Procedure Note - Detailed Date of Procedure 09/13/21 Pre-op Diagnosis Chronic cholecystitis, cholelithiasis, abnormal LFTs Post-op Diagnosis Same Procedure Performed Laparoscopic cholecystectomy with intraoperative cholangiogram Surgeon Lance Correa MD [employer] Room Attendant Rafiamariya Kumarsanti [employer] Anesthesia General and Local (1% lidocaine with epinephrine) Indications Patient is a 25-year-old woman who presented with severe epigastric and right upper quadrant abdominal pain. Her liver enzymes were elevated and her lipase was also slightly elevated. CT scan showed gallstones and evidence of biliary ductal dilatation as well as cholecystitis. Her pain resolved and the LFTs normalized. MRCP was done and was negative for common bile duct stones but did show cholecystitis. She is taken to surgery now for laparoscopic cholecystectomy with intraoperative cholangiogram. Findings Mild chronic inflammation and multiple gallstones. Fatty liver. Cholangiogram showed prompt duodenal filling, no filling defects or lucencies, normal common hepatic duct and intrahepatic biliary ducts. Description of Procedure Patient was taken to surgery and induced into general anesthesia. The abdomen is prepped and draped. Trocars were placed in the usual fashion using local anesthetic and applied Medical optical trocars. A 5 mm camera was used. The gallbladder was freed from some adhesions. It was decompressed with a laparoscopic aspirator. The cholecystotomy was then closed with a Vicryl endoloop. The gallbladder was then freed from its remaining adhesions and retracted anterosuperiorly. Dissection in the cholecystohepatic triangle was carried out. The cystic duct was slightly dilated. We dissected out the cystic duct and cystic artery. The gallbladder was then dissected free from its attachments to the liver over the lower 3rd. Critical view was achieved. I securely clipped and divided the cystic artery. I placed a clip proximally on the cystic duct. The cystic duct scissors were used to make an opening in the proximal cystic duct. Cholangiogram catheter was able to be passed into the cystic duct. C-arm fluoroscopy was advanced into the field. Cine fluoroscopy was then used to perform a cholangiogram. Several views were performed. Cholangiogram was negative. The radiologist called to the room and affirm that there were no stones in the common bile duct by his interpretation. We removed the cholangiogram catheter. The cystic duct was securely clipped and divided. The gallbladder was then retracted and the remaining peritoneal attachments of the gallbladder to the liver were freed. The gallbladder was dissected completely free from the liver. Cautery was used to achieve good hemostasis on the gallbladder fossa. We placed the gallbladder in an Endo-Catch bag retrieved it through the epigastric trocar site. We then replaced the epigastric trocar and reviewed the right upper quadrant. It was irrigated and suctioned repeatedly. All looked good with no evidence of bleeding or bile leakage. We then used the Steven cone and a granny and suture pass device. An 0 Vicryl suture was used to close the fascia at the 10 11 epigastric trocar site. We evacuated CO2 and removed the trocar sleeves. Skin wounds were closed with subcuticular 4-0 Monocryl skin suture. The wounds were dressed with Exofin surgical adhesive. Patient was awakened and taken to recovery in good condition. Sponge and needle counts were correct x2. Estimated Blood Loss -10 Urine Output 800 Drains No Packing No Pathology Yes (gallbladder) Complications No immediate complications Condition Stable Disposition PACU [facility] Billing Surgery - Charge Forward: Surgery Billing (Laparoscopic cholecystectomy with intraoperative cholangiogram)
[2021-09-13] MEDS: fentaNYL CITRATE INJ (*CRX) 100 MCG/2 ML VIAL 25 MCG IV PUSH ×3 (13:20→13:56)
[2021-09-13] MEDS: HYDROmorphone HCL INJ (*CRX) 1 MG/ML SYR 0.5 MG IV PUSH ×2 (14:10→14:21)
[2021-09-13] MEDS: ONDANSETRON INJ 4 MG/2 ML VIAL IV PUSH (14:27)
[2021-09-13] MEDS: HYDROcodone/acetaminophen (*CRX) 10-325 MG TABLET 1 TAB PO ×2 (15:05→21:15)
[2021-09-13] MEDS: MORPHINE SULFATE (*CRX) 4 MG/ML INJ IV PUSH (16:32)
[2021-09-13] MEDS: LACTATED RINGERS 1,000 ML 100 ML IV CONT (16:32)
--- NOTE | 2021-09-13 16:41 | PM.IMPN ---
Progress Note: A&P Assessment and Plan (1) Cholecystitis: Code(s): K81.9 - Cholecystitis, unspecified Status: Acute Assessment and Plan: S/p laparoscopic cholecystectomy with intraoperative cholangiogram -appreciate general surgery consultation -continue IV fluids until tolerating diet -analgesics as needed (2) Nausea & vomiting: Code(s): R11.2 - Nausea with vomiting, unspecified Status: Acute Assessment and Plan: Secondary to above - Antiemetics as needed. (3) RUQ pain: Code(s): R10.11 - Right upper quadrant pain Status: Acute Assessment and Plan: As above. -seen in consultation by Gastroenterology. MRCP showed cholecystitis without bile duct stones. No need for ERCP (4) Morbid obesity: Code(s): E66.01 - Morbid (severe) obesity due to excess calories Status: Acute Assessment and Plan: Recommend diet and lifestyle modifications post operation. Subjective Date/time seen: 09/13/21 16:41 Interval history: Date of service: 09/13/2021 Sandra Sloan is a 25-year-old female with a history of anxiety, depression, PTSD, 7 months who is seen in follow-up for acute cholecystitis. She is seen this morning prior to surgery. States she is feeling well. Has no abdominal pain. No nausea or vomiting. She had a bowel movement yesterday. Yesterday she tolerated a low-fat diet. She denies dizziness, lightheadedness, weakness, shortness breath, cough, chest pain. Review of Systems Review of Systems: All systems reviewed & are unremarkable except as noted in HPI and below Exam Narrative: General: Well-nourished, well-appearing 25-year-old female, sitting up in, comfortable, NARD Neuro: awake, alert and oriented x4, speech clear, no focal neuro deficits noted HEENMT: normocephalic, atraumatic, EOMI, sclerae anicteric, moist oral mucosa Respiratory: clear to auscultation bilaterally, nonlabored breathing Cardio: regular rate, regular rhythm with S1-S2 Abdomen: nondistended, normoactive bowel sounds, soft, nontender to palpation Extremities: no edema, erythema, or tenderness to palpation, DP pulses 2+ bilaterally Skin: no rashes or lesions, warm and dry Psych: appropriate mood and affect, judgment and insight intact Objective Data Vital Signs Vital Signs: Vital Signs - 24 hr 09/12/21 20:33 09/13/21 04:15 09/13/21 08:00 Temperature 97.7 F 98.2 F Pulse Rate 71 65 Respiratory Rate 20 20 Blood Pressure 129/66 126/67 Pulse Oximetry 100 95 Oxygen Delivery Room Air Oxygen Flow Rate 09/13/21 10:32 09/13/21 13:06 09/13/21 13:20 Temperature 97 F L 98.1 F Pulse Rate 53 L 58 L 55 L Respiratory Rate 16 22 H 21 H Blood Pressure 133/71 140/69 137/71 Pulse Oximetry 99 100 100 Oxygen Delivery Room Air Simple Face Mask Simple Face Mask Oxygen Flow Rate 5 5 09/13/21 13:35 09/13/21 13:47 09/13/21 14:05 Temperature Pulse Rate 57 L 54 L 57 L Respiratory Rate 21 H 20 15 Blood Pressure 137/76 139/73 126/60 Pulse Oximetry 100 100 100 Oxygen Delivery Simple Face Mask Room Air Room Air Oxygen Flow Rate 5 09/13/21 14:17 09/13/21 14:25 09/13/21 14:55 Temperature 97.2 F L Pulse Rate 57 L 56 L 52 L Respiratory Rate 20 15 16 Blood Pressure 125/60 125/59 L 140/70 Pulse Oximetry 100 100 100 Oxygen Delivery Room Air Room Air Oxygen Flow Rate 09/13/21 15:10 09/13/21 15:40 09/13/21 16:38 Temperature 97.0 F L 97.1 F L 97.6 F Pulse Rate 52 L 52 L 61 Respiratory Rate 18 16 14 Blood Pressure 150/83 H 144/75 H 138/69 Pulse Oximetry 100 100 98 Oxygen Delivery Oxygen Flow Rate Intake/Output Intake/Output: Intake & Output 09/10/21 09/11/21 09/12/21 09/13/21 23:59 23:59 23:59 23:59 Intake Total 1000 2880 2676 1520 Output Total 300 1600 Balance 1000 2880 2246 -80 Meds/Results Medications: Active Medications Generic Name Dose Route Start Last Admin Trade Name Freq P
[2021-09-14 00:16] VITALS: BP 112/57; PULSE 62; RESP 16; TEMP 36.4; O2SAT 98
[2021-09-14 04:29] VITALS: BP 118/65; PULSE 51; RESP 16; TEMP 36.4; O2SAT 95
[2021-09-14] MEDS: HYDROcodone/acetaminophen (*CRX) 5-325 MG TABLET 1 TAB PO ×2 (05:05→12:18)
[2021-09-14 06:13] LABS: Hematocrit 37.3 % (37.0-47.0); Hemoglobin 11.7 g/dL (12.0-15.0); Mean Corpuscular HGB Conc 31.4 g/dl (32-36); Mean Corpuscular Volume 76.4 fl (80-100); Mean Platelet Volume 9.8 fl (7.4-10.4); Platelet Count Result 366 k/mm3 (150-375); Red Blood Count 4.88 M/mm3 (4.2-5.4); Red Cell Distribution Width 18.3 % (11.5-14.5); White Blood Count 7.4 K/mm3 (4.5-10.0)
[2021-09-14 06:35] LABS: Alanine Aminotransferase 136 U/L (6-35); Alkaline Phosphatase 51 U/L (38-126); Anion Gap 6 mmol/L (8-16); Aspartate Amino Transferase 41 U/L (14-36); Bilirubin,Total 0.3 mg/dL (0.2-1.3); Blood Urea Nitrogen 5 mg/dL (7-17); Calcium 8.7 mg/dL (8.4-10.2); Carbon Dioxide 26 mmol/L (22-30); Chloride 106 mmol/L (98-107); Estimated CRCL calculation 154 ml/min; Estimated Glomerular Filt Rate > 60; Glucose 91 mg/dL (65-110); Potassium 3.9 mmol/L (3.4-5.0); Sodium 138 mmol/L (137-145)
--- NOTE | 2021-09-14 08:43 | WPDANESPN ---
Anes - Prog Note Post-Op Date/Time: 09/14/21 08:43 Vital Signs: Last Vital Signs Temp 36.4 C 09/14/21 04:29 Pulse 51 L 09/14/21 04:29 Resp 16 09/14/21 04:29 BP 118/65 09/14/21 04:29 Pulse Ox 95 09/14/21 04:29 O2 Del Method Room Air 09/13/21 14:25 O2 Flow Rate 5 09/13/21 13:35 Pain Score (VAS): 0 I/O: Intake & Output 09/13/21 09/14/21 09/14/21 23:59 07:59 15:59 Intake Total 1500 100 240 Output Total 2100 800 Balance -600 -700 240 Laboratory Tests 09/14/21 05:29 09/14/21 05:29 09/14/21 09/14/21 05:29 05:29 WBC 7.4 RBC 4.88 Hgb 11.7 L Hct 37.3 MCV 76.4 L MCH 24.0 L MCHC 31.4 L RDW 18.3 H Plt Count 366 MPV 9.8 Sodium 138 Potassium 3.9 Chloride 106 Carbon Dioxide 26 Anion Gap 6 L BUN 5 L Creatinine 0.70 Estim Creat Clear Calc 154 Estimated GFR > 60 Glucose 91 Calcium 8.7 Total Bilirubin 0.3 AST 41 H ALT 136 H Alkaline Phosphatase 51 Total Protein 7.0 Albumin 4.0 Patient Feedback: Patient satisfied with anesthetic care.
--- NOTE | 2021-09-14 08:54 | PM.PNGS ---
Progress Note: A&P Assessment and Plan (1) Cholelithiasis with chronic cholecystitis: Code(s): K80.10 - Calculus of gallbladder with chronic cholecystitis without obstruction Status: Acute Assessment and Plan: POD#1 laparoscopic cholecystectomy and doing well. Tolerating her diet and pain is controlled. Okay to discharge from our standpoint. Continue low fat diet. Follow-up in [address] Correa. (2) Elevated liver enzymes: Code(s): R74.8 - Abnormal levels of other serum enzymes Status: Acute Assessment and Plan: Continues to trend down. MRCP negative. IOC negative for filling defects. Plan I have discussed the patient's case and plan of care with Dr. Correa. Subjective Subjective Date/Time Seen: 09/14/21 08:54 Post Op day: 1 (laparoscopic cholecystectomy with IOC) Patient reports: still having pain (incisional pain, controlled with oral analgesics), tolerating a regular diet (low fat diet, no nausea or vomiting), voiding w/o difficulty, flatus and afebrile Review of Systems Review of Systems: All systems reviewed & are unremarkable except as noted in HPI and below Constitutional: Constitutional: Reports no additional constitutional complaints and Denies fever(s) Cardiovascular: Cardiovascular: Reports no additional cardiovascular complaints, Denies chest pain and Denies leg edema Respiratory: Respiratory: Reports no additional respiratory complaints, Denies cough and Denies dyspnea Gastrointestinal: Gastrointestinal: Reports as per HPI and Reports no additional gastrointestinal complaints Exam Const: General: comfortable, no acute distress and awake Nutritional Appearance: obese Orientation/consciousness: patient oriented x3 GI: Inspection: incision (Abdominal incisions dry and glue intact.) and obesity GI Palp: Yes Soft to palpation, Yes Tenderness to palpation present (GI) (incisional) and No Guarding due to palpation present (GI) Auscultation: normal bowel sounds Neuro: General: moves all extremities and no focal motor deficits Extrem: General: no calf tenderness and no edema Psych: Insight: Good insight present (Psych) Judgement: Good judgement present (Psych) Objective Data Vital Signs Vital Signs: Vital Signs - 24 hr 09/13/21 10:32 09/13/21 13:06 09/13/21 13:20 Temperature 97 F L 98.1 F Pulse Rate 53 L 58 L 55 L Respiratory Rate 16 22 H 21 H Blood Pressure 133/71 140/69 137/71 Pulse Oximetry 99 100 100 Oxygen Delivery Room Air Simple Face Mask Simple Face Mask Oxygen Flow Rate 5 5 09/13/21 13:35 09/13/21 13:47 09/13/21 14:05 Temperature Pulse Rate 57 L 54 L 57 L Respiratory Rate 21 H 20 15 Blood Pressure 137/76 139/73 126/60 Pulse Oximetry 100 100 100 Oxygen Delivery Simple Face Mask Room Air Room Air Oxygen Flow Rate 5 09/13/21 14:17 09/13/21 14:25 09/13/21 14:55 Temperature 97.2 F L Pulse Rate 57 L 56 L 52 L Respiratory Rate 20 15 16 Blood Pressure 125/60 125/59 L 140/70 Pulse Oximetry 100 100 100 Oxygen Delivery Room Air Room Air Oxygen Flow Rate 09/13/21 15:10 09/13/21 15:40 09/13/21 16:38 Temperature 97.0 F L 97.1 F L 97.6 F Pulse Rate 52 L 52 L 61 Respiratory Rate 18 16 14 Blood Pressure 150/83 H 144/75 H 138/69 Pulse Oximetry 100 100 98 Oxygen Delivery Oxygen Flow Rate 09/13/21 20:50 09/14/21 00:16 09/14/21 04:29 Temperature 97.6 F 97.6 F 97.6 F Pulse Rate 58 L 62 51 L Respiratory Rate 16 16 16 Blood Pressure 141/70 H 112/57 L 118/65 Pulse Oximetry 100 98 95 Oxygen Delivery Oxygen Flow Rate Intake/Output Intake/Output: Intake & Output 09/11/21 09/12/21 09/13/21 09/14/21 23:59 23:59 23:59 23:59 Intake Total 2880 2676 4020 340 Output Total 300 3700 800 Balance 2880 2376 320 -460 Meds/Results Medications: Active Medications Generic Name Dose Route Start Last Admin Trade Name Freq PRN Reason Stop Dose Admin Acetaminophen 500 mg 09/13/21 14:55 Acetaminophen 500 M
[2021-09-14 09:00] VITALS: RESP 16; O2SAT 95
[2021-09-14] MEDS: ENOXAPARIN 40 MG/0.4 ML SYRINGE SUB-Q (09:00)
[2021-09-14 09:49] VITALS: BP 141/60; PULSE 60; RESP 16; TEMP 36.4; O2SAT 98
--- NOTE | 2021-09-14 12:29 | PM.DS ---
DS: Admitting Diagnosis Discharge Date 09/14/2021 Admitting Diagnosis Cholecystitis DS: Discharge Diagnosis Discharge Diagnosis (1) Cholecystitis: Code(s): K81.9 - Cholecystitis, unspecified Status: Acute Assessment and Plan: S/p laparoscopic cholecystectomy with intraoperative cholangiogram -Seen in consultation by general surgery -Tolerated low fat diet which will be continued -Follow up with general surgery as an outpatient (2) Nausea & vomiting: Code(s): R11.2 - Nausea with vomiting, unspecified Status: Acute Assessment and Plan: Secondary to above - Antiemetics as needed. (3) RUQ pain: Code(s): R10.11 - Right upper quadrant pain Status: Acute Assessment and Plan: As above. -Seen in consultation by Gastroenterology. MRCP showed cholecystitis without bile duct stones. No need for ERCP (4) Morbid obesity: Code(s): E66.01 - Morbid (severe) obesity due to excess calories Status: Acute Assessment and Plan: Recommend diet and lifestyle modifications DS: Summary Hospital Course Hospital Course: Date of admission: 09/10/2021 Date of discharge: 09/14/2021 Sandra Sloan is a 25-year-old female with a history of anxiety, depression, PTSD, 7 months ?who presented to the emergency department on 09/10/2021 with complaints of epigastric discomfort ongoing for 2 days with associated dry heaves. On presentation to the ED, she was afebrile, vital signs stable, CBC and BMP unremarkable, lipase 305, CT of the abdomen/pelvis showed cholelithiasis with mild gallbladder inflammatory changes with intrahepatic biliary duct dilation. She was admitted to the hospitalist service for further evaluation management was seen in consultation by Gastroenterology and General surgery. She had an MRCP which showed cholecystitis without evidence of choledocholithiasis. She was evaluated by General surgery and determined to be candidate for laparoscopic cholecystectomy which was completed on 09/13/2021. She tolerated this procedure well and her pain was well controlled. She was able to tolerate a low fat diet. She was feeling improved and was eager for discharge home. Given her overall improvement, she was determined to no longer require inpatient care and was discharged in hemodynamically stable condition. General surgery in agreement with discharge plans. Discussed with the patient worrisome signs and symptoms for which to return and she was educated on her medications. She will follow-up with Dr. Correa in 1-2 weeks. Time Spent with Patient Time attestation: Total time spent providing and/or coordinating discharge services: 45 minutes Time spent: Greater than 30 minutes Exam Narrative: General: Obese, well-appearing 25-year-old female, sitting up in bed comfortable, NARD Neuro: awake, alert and oriented x4, speech clear, no focal neuro deficits noted HEENMT: normocephalic, atraumatic, EOMI, sclerae anicteric, moist oral mucosa Respiratory: clear to auscultation bilaterally, nonlabored breathing Cardio: regular rate, regular rhythm with S1-S2 Abdomen: nondistended, normoactive bowel sounds, soft, nontender to palpation Extremities: no edema, erythema, or tenderness to palpation, DP pulses 2+ bilaterally Skin: no rashes or lesions, warm and dry Psych: appropriate mood and affect, judgment and insight intact DS: Data Data Completed and Pending Completed studies during hospitalization: Pending at discharge 09/13/21 12:04 Surgical [PTH] Routine Labs on day of discharge: Labs from last 24 hours 09/14/21 09/14/21 05:29 05:29 WBC 7.4 RBC 4.88 Hgb 11.7 L Hct 37.3 MCV 76.4 L MCH 24.0 L MCHC 31.4 L RDW 18.3 H Plt Count 366 MPV 9.8 Sodium 138 Potassium 3.9 Chloride 106 Carbon Dioxide 26 Anion Gap 6 L BUN 5 L Creatinine 0.70 Estim Creat Clear Calc 154 Estimated GFR > 60 Glucos
== END 2021-09-14 13:10 | disposition home or self-care (01) | DRG 263 ==
LOC: ANHED 18:23 → ANH2MED 19:31
PROVIDERS: Internal Medicine Gastroenterology; Nurse Practitioner Adult Health; Physician Assistant; Surgery; Admitting Provider Internal Medicine; Emergency Provider Emergency Medicine; Visit Provider Family Medicine
PROC: 0FT44ZZ Resection of Gallbladder, Percutaneous Endoscopic Approach (ICD-10-PCS; CPT 47562; principal; 2021-09-13 12:30)
DX: K80.10 Calculus of gallbladder with chronic cholecystitis without obstruction (principal); K76.0 Fatty (change of) liver, not elsewhere classified; E66.01 Morbid (severe) obesity due to excess calories; Z68.42 Body mass index [BMI] 45.0-49.9, adult; F43.10 Post-traumatic stress disorder, unspecified; F41.9 Anxiety disorder, unspecified; F32.A Depression, unspecified; F17.290 Nicotine dependence, other tobacco product, uncomplicated; R74.8 Abnormal levels of other serum enzymes
CPT/HCPCS: 36415; 71045; 74177; 74183; 74300; 76376; 80053; 81001; 81025; 83690; 83735; 85025; 85027; 86850; 86900; 86901; 88304; 93005; 96361; 96365; 96366; 96374; 96375; 99285; A9270; A9577; C1713; C9803; G0378; G0379; J0295; J0690; J1100; J1170; J1650; J2250; J2270; J2405; J2704; J2710; J3010; J7030; J7120; Q9966; Q9967; U0003; U0005

== ENCOUNTER 2021-10-05 18:17 | Emergency (ER) | payer OTHER, SELFPAY ==
[2021-10-05 18:19] VITALS: BP 119/66; PULSE 111; RESP 16; TEMP 36.2; O2SAT 99
[2021-10-05] MEDS: ONDANSETRON HCL ODT 4 MG TABLET PO (19:18)
[2021-10-05] MEDS: KETOROLAC 30 MG/ML VIAL (*BKC) IM (19:18)
--- NOTE | 2021-10-05 19:47 | ED.FEVER ---
HPI - Fever General Chief Complaint: Fever Stated Complaint: fever and decreased appetite Time Seen by Provider: 10/05/21 18:57 History of Present Illness HPI Narrative: 25-year-old female states that earlier this morning she started feeling fevers and body aches, she did throw up once though she is feeling slightly better now, she has not been eating or drinking much all day. Does have some congestion, no cough, no dysuria or abdominal pain. No cough, sore throat, does not think she has any sick exposures. Has been taking Tylenol at home with improvement in her fevers and symptoms Related Data Home Medications Medication Instructions Recorded Confirmed medroxyprogesterone 150 mg/mL 150 mg IM [id number] 06/07/21 09/10/21 intramuscular suspension Allergies Allergy/AdvReac Type Severity Reaction Status Date / Time No Known Allergies Allergy Verified 10/05/21 18:18 Review of Systems Review of Systems: CONST: Fever HEENT: Congestion C/V: No chest pain RESP: No cough GI: Denies abdominal pain, does endorse nausea, vomiting : No dysuria. M/S: Muscle aches. SKIN: No rash. NEURO: [No headache or focal numbness or weakness] PSYCH: [No depression] [facility] Past Medical History Medical History (Updated 10/05/21 @ 20:12 by Litzy Avila MD) Anxiety Depression Elevated liver enzymes Morbid obesity and not yet delivered PTSD (post-traumatic stress disorder) Surgical History Surgical History (Updated 10/05/21 @ 19:49 by Litzy Avila MD) Hx of cholecystectomy Family History Family History Grandparent Diabetes mellitus Other No pertinent family history Social History Social History Smoking status: Current some day smoker Tobacco type: e-cigarettes/vaping Second hand tobacco smoke exposure: No Alcohol intake: never Substance use: former Substance use type: does not use Other substance usage details: marijuana use Last use: 2.5 years ago Gender identity (if verbalized by the patient): Female Spiritual care concerns: No Exam Narrative: EXAMINATION OF ORGAN SYSTEMS/BODY AREAS: Constitutional: Vital signs per nursing GENERAL:[No acute distress, non-toxic appearing.] HEAD: Normal with no signs of head trauma. EYES: EOMI, conjunctiva normal ENT: No oropharyngeal edema, does have nasal congestion LUNGS: Nonlabored breathing. Speaking in full sentences. HEART: [Regular rate and rhythm] ABD: [Soft], [nontender to palpation] EXT: Normal range of motion SKIN: [No rashes or lesions.] NEURO: [Alert and oriented x 3. No gross focal sensory or strength deficits.] PSYCH: Normal affect Course Vital Signs Vital signs: Vital Signs Temperature 97.2 F L 10/05/21 18:19 Pulse Rate 111 H 10/05/21 18:19 Respiratory Rate 16 10/05/21 18:19 Blood Pressure 119/66 10/05/21 18:19 Pulse Oximetry 99 10/05/21 18:19 Oxygen Delivery Room Air 10/05/21 18:19 Temperature 99.9 F H 10/05/21 19:49 Pulse Rate 111 H 10/05/21 18:19 Respiratory Rate 16 10/05/21 18:19 Blood Pressure 119/66 10/05/21 18:19 Pulse Oximetry 99 10/05/21 18:19 Oxygen Delivery Room Air 10/05/21 18:19 MDM - Fever MDM Narrative Medical decision making narrative: 25-year-old female with one day of symptoms most suggestive of viral syndrome with congestion and URI symptoms as well as vomiting; VS mildly elevated temp and HR, no abdominal pain or cough or difficulty breathing. Patient is treated symptomatically with ondansetron, toradol. On reevaluation, patient feels better and tolerating oral intake. UA does show UTI; doubt stone without any abdominal pain or flank pain. She will be treated with abx here. She has no more nausea or body aches, just feeling tired, and her HR improved to 96 on manual palpation. Patient is comfortable going home and discharged home in stable condition with
[2021-10-05 19:49] VITALS: TEMP 37.7
[2021-10-05 19:53] LABS: Influenza A QL RT-PCR Negative (Negative); Influenza B QL RT-PCR Negative (Negative); SARS-CoV-2 RNA PCR Negative
[2021-10-05 20:13] LABS: Appearance Urine Cloudy (Clear); Bilirubin Urine Negative (Negative); Blood Urine 1+ (Negative); Color Urine Yellow (Yellow); Glucose Urine UA Negative (Negative); Ketones Urine Trace mg/dL (Negative); Leukocyte Esterase Ur Trace LEU/UL (Negative); Nitrate Urine Positive (Negative); Protein Urine 2+ mg/dL (Negative); Urobilinogen Urine 0.2 mg/dL (<2.0); pH Urine 6.5 (5.0-9.0)
[2021-10-05 20:15] LABS: Bacteria Urine Trace /hpf; Mucus Urine Few /lpf; Squamous Epithelial Cell Urine Few /hpf (Few); WBC Urine 21-30 /hpf
[2021-10-05 20:21] LABS: Add Urine Microscopic? YES
[2021-10-05 20:40] VITALS: BP 132/76; PULSE 89; RESP 14; TEMP 37.2; O2SAT 99
== END 2021-10-05 20:41 | disposition home or self-care (01) ==
PROVIDERS: Emergency Provider Emergency Medicine
DX: B34.9 Viral infection, unspecified (principal); R11.2 Nausea with vomiting, unspecified; Z20.822 Contact with and (suspected) exposure to COVID-19; E66.01 Morbid (severe) obesity due to excess calories; Z68.42 Body mass index [BMI] 45.0-49.9, adult; F17.290 Nicotine dependence, other tobacco product, uncomplicated
CPT/HCPCS: 81001; 81025; 87077; 87086; 87088; 87186; 87502; 96372; 99283; A9270; C9803; J1885; U0003; U0005

== ENCOUNTER 2021-10-06 12:50 | Observation (INO) | payer OTHER, SELFPAY ==
--- NOTE | ~2021-10-06 | XR_ITS ---
EXAMINATION: XR chest 1V portable INDICATION: Fever TECHNIQUE: Portable AP chest at 1623 hours COMPARISON: 09/11/2021 FINDINGS: The lungs are free of acute opacities. No pleural effusion or pneumothorax. The cardiomedia stinal silhouette is normal. IMPRESSION: 1. No acute cardiopulmonary abnormality. Reviewed, dictated and finalized at location L.
--- NOTE | ~2021-10-06 | CT_ITS ---
EXAMINATION: CT abdomen pelvis w con DATE: 10/06/2021 16:49 INDICATION: Left flank pain. Urinary tract infection. TECHNIQUE: Computed tomography (CT) of the abdomen and pelvis was performed with 100 cc Omnipaque 300 intravenous contrast. The dose-length product was 1602.99 mGy-cm. Automated exposure control and ite rative reconstruction technique were employed. COMPARISON: CT dated 09/10/2021. FINDINGS: There is asymmetric enlargement of the right kidney compared with the left with areas of de creased perfusion in the right renal cortex, suspicious for pyelonephritis. The liver, spleen, pancre as, adrenal glands and left kidney are unremarkable. No significant vascular abnormality. Status post cholecystectomy. Nonobstructive bowel gas pattern. No hydronephrosis. Bladder is unremarkable. No fr ee air. No acute osseous abnormality. There is colonic diverticulosis without evidence for diverticul itis. Trace free fluid in the pelvis. IMPRESSION: 1. Asymmetric enlargement of the right kidney with heterogeneous cortical enhancement, suspicious for pyelonephritis. Reviewed, dictated and finalized at location A. IMPRESSION: 1. Asymmetric enlargement of the right kidney with heterogeneous cortical enhan cement, suspicious for pyelonephritis.
[2021-10-06 12:53] VITALS: BP 123/60; PULSE 123; RESP 22; TEMP 38.6; O2SAT 100
[2021-10-06] MEDS: ACETAMINOPHEN 500 MG TABLET 1000 MG PO (13:03)
[2021-10-06 13:23] LABS: Basophils Percent Auto 0.1 % (0.2-1.2); Hematocrit 38.3 % (37.0-47.0); Hemoglobin 11.6 g/dL (12.0-15.0); Immature Granulocyte Absolute 0.05 K/mm3 (0.00-0.031); Immature Granulocyte Percent A 0.4 % (0-0.5); Lymphocytes Absolute Auto 1.12 K/mm3 (0.9-3.2); Lymphocytes Percent Auto 8.3 % (18.3-44.2); Mean Corpuscular HGB Conc 30.3 g/dl (32-36); Mean Corpuscular Hemoglobin 23.6 pg (26-34); Mean Corpuscular Volume 77.8 fl (80-100); Mean Platelet Volume 10.1 fl (7.4-10.4); Monocytes Absolute Auto 0.7 K/mm3 (0.1-0.6); Monocytes Percent Auto 5.5 % (2.6-8.5); Neutrophils Absolute Auto 11.6 K/mm3 (1.3-6.7); Neutrophils Percent Auto 85.7 % (45.5-73.1); Platelet Count Result 279 k/mm3 (150-375); Red Blood Count 4.92 M/mm3 (4.2-5.4); Red Cell Distribution Width 17.2 % (11.5-14.5); White Blood Count 13.5 K/mm3 (4.5-10.0)
[2021-10-06 13:31] LABS: Lactic Acid Reflex 1.4 mmol/L (0.7-2.0)
[2021-10-06 13:33] LABS: Alanine Aminotransferase 21 U/L (6-35); Albumin Level 4.5 g/dL (3.5-5.1); Alkaline Phosphatase 79 U/L (38-126); Anion Gap 14 mmol/L (8-16); Aspartate Amino Transferase 21 U/L (14-36); Bilirubin,Total 0.5 mg/dL (0.2-1.3); Blood Urea Nitrogen 12 mg/dL (7-17); Calcium 9.5 mg/dL (8.4-10.2); Carbon Dioxide 22 mmol/L (22-30); Chloride 102 mmol/L (98-107); Estimated CRCL calculation 99 ml/min; Estimated Glomerular Filt Rate > 60; Glucose 109 mg/dL (65-110); Potassium 3.7 mmol/L (3.4-5.0); Sodium 138 mmol/L (137-145)
[2021-10-06] MEDS: SODIUM CHLORIDE 0.9% IV 1,000 ML 999 ML IV CONT ×2 (16:21→18:38)
[2021-10-06 16:30] VITALS: TEMP 38.4
[2021-10-06] MEDS: KETOROLAC 30 MG/ML VIAL (*BKC) IV PUSH (16:48)
--- NOTE | 2021-10-06 17:15 | ED.GENADULT ---
HPI - General Adult General Chief complaint: Urogenital-Female Stated complaint: UTI with fever Time Seen by Provider: 10/06/21 15:54 Source: RN notes reviewed History of Present Illness HPI narrative: Patient presents to emergency department from home for fever. Patient states that she developed a fever 2 days ago. States she was seen in the emergency department yesterday and had a work-up including negative COVID swab was diagnosed with UTI she was placed on Bactrim which she has been taking states she continued to feel worse today and came to the emergency room for further evaluation was noted to have a fever of 101 on presentation she does note some mild nausea she denies any chest pain or shortness of breath note some mild flank pain bilaterally denies any abdominal pain Related Data Home Medications Medication Instructions Recorded Confirmed medroxyprogesterone 150 mg/mL 150 mg IM [id number] 06/07/21 09/10/21 intramuscular suspension Allergies Allergy/AdvReac Type Severity Reaction Status Date / Time No Known Allergies Allergy Verified 10/06/21 12:52 Review of Systems Review of Systems: Gen.: Reports fever Eyes: Denies eye pain or visual change ENT: Denies congestion Respiratory: Denies shortness of breath or cough CV: Denies chest pain or palpitations GI: Denies abdominal pain emesis or diarrhea reports intermittent nausea reports recent UTI Musculoskeletal: Denies back pain or muscle pain Neuro: Denies numbness, tingling, weakness or focal weakness Skin: Denies rash Except as documented, all other systems reviewed and negative PMFSH Past Medical History Medical History Anxiety Depression Elevated liver enzymes Morbid obesity and not yet delivered PTSD (post-traumatic stress disorder) Surgical History Surgical History (Updated 10/05/21 @ 19:49 by Litzy Avila MD) Hx of cholecystectomy Family History Family History Grandparent Diabetes mellitus Other No pertinent family history Social History Social History Smoking status: Current some day smoker Tobacco type: e-cigarettes/vaping Second hand tobacco smoke exposure: No Alcohol intake: never Substance use: former Substance use type: does not use Other substance usage details: marijuana use Last use: 2.5 years ago Gender identity (if verbalized by the patient): Female Spiritual care concerns: No Exam Narrative: APPEARANCE: No acute distress, nontoxic, resting in bed EYES: EOMI HEENT: Normocephalic, atraumatic, OMM RESPIRATORY: No respiratory distress Clear to auscultation bilaterally with no rhonchi wheezing or rales. CARDIOVASCULAR: Regular rate and rhythm without murmurs rubs or gallops. ABDOMINAL: Soft, nontender, nondistended, no rebound or guarding bilateral flanks and MUSCULOSKELETAl: Moves all extremities. No clubbing, cyanosis or edema. NEURO: Awake and alert. Following commands, speech normal, no focal deficits SKIN:: Warm, dry. No rashes lesions or abrasions PSYCHIATRIC: Normal affect/mood, Course Course Emergency Course: Old records patient with negative COVID test yesterday she was positive for UTI culture still pending placed on Bactrim Discussed with YOLANDA Smith for Dr. Nobles agrees with admission Discussed with patient and family results of workup and diagnosis. Discussed need for admission. Patient and family understand and agree to current treatment plan Vital Signs Vital signs: Vital Signs Temperature 101.5 F H 10/06/21 12:53 Pulse Rate 123 H 10/06/21 12:53 Respiratory Rate 22 H 10/06/21 12:53 Blood Pressure 123/60 10/06/21 12:53 Pulse Oximetry 100 10/06/21 12:53 Oxygen Delivery Room Air 10/06/21 12:53 Temperature 101.1 F H 10/06/21 16:30 Pulse Rate 123 H 10/06/21 12:53 Respiratory Rate
[2021-10-06 17:50] VITALS: TEMP 37.3
--- NOTE | 2021-10-06 18:00 | PM.IMHP ---
H&P: HPI History of Present Illness Date/Time: 10/06/21 18:00 Chief Complaint: Fever. Narrative: This is a pleasant 25-year-old female with history of asthma, GERD, and iron-deficiency anemia who presented to the emergency department via private vehicle from home for evaluation of ongoing fevers. She was admitted to the hospital earlier this month with abdominal pain and was found to have cholecystitis for which she had a laparoscopic cholecystectomy on 09/13/2021. She has been doing pretty good since that time in fact she return to work about 1.5 weeks thereafter. Late Saturday night she awoke from sleep with chills, sweats, and a fever of 102.7? F. Throughout the day she developed body aches, nausea, and vomiting and she was seen in the ER last night for evaluation at which time she was diagnosed with urinary tract infection and she was discharged home on Bactrim. Despite taking her antibiotics and Tylenol she has continued to run fevers and today she actually felt worse. Her appetite has been poor and she has had decreased oral intake due to ongoing nausea. CT of the abdomen and pelvis showed findings suspicious for pyelonephritis and she is being admitted in this setting. Interestingly she has no urinary symptoms and she specifically denies malodorous urine, dysuria, hesitancy, urgency, etc.. She does have some mild tenderness in the right flank but no significant back or abdominal pain. She has not noticed a decrease in urine output. Review of Systems Review of Systems: Twelve systems were reviewed. Reports mild sinus congestion. No sore throat, cough, or shortness of breath. She denies sick contacts. She has occasional spotting but has not had a proper menstrual cycle quite some time as she is on the Depo shot. Except as documented, all other systems were reviewed and are negative. [facility] Past Medical History Medical History (Updated 10/06/21 @ 22:35 by Sarah Gorman PA-C) Anxiety Depression Post traumatic stress disorder Surgical History Surgical History (Updated 10/06/21 @ 17:21 by Sarah Gorman PA-C) History of laparoscopic cholecystectomy (09/13/21) Family History Family History Grandparent Diabetes mellitus Other No pertinent family history Social History Social History (Updated 10/06/21 @ 22:36 by Sarah Gorman PA-C) Social History: Surrogate medical decision maker: Ashtyn Moore (grandmother) or Marko Reyes (significant other). Code status: Full code. Smoking status: Former smoker Tobacco type: cigarettes Second hand tobacco smoke exposure: No Alcohol intake: never Substance use: never Substance use type: does not use Other substance usage details: marijuana use Last use: 2.5 years ago Living arrangements: with family Additional living arrangements comments: Lives with fianc? and 8 month old child. Additional occupation/education comments: Works for [employer]. Spiritual care concerns: No Meds Home Medications and Allergies Home Medications Medication Instructions Recorded Confirmed Type medroxyprogesterone 150 mg/mL 150 mg IM [id number] 06/07/21 10/06/21 History intramuscular suspension ibuprofen 600 mg tablet 600 mg PO TID PRN fever or pain 10/05/21 10/06/21 Rx #30 tabs ondansetron 4 mg disintegrating 4 mg PO Q8H PRN nausea and 10/05/21 10/06/21 Rx tablet vomiting #10 tabs Allergies Allergy/AdvReac Type Severity Reaction Status Date / Time No Known Allergies Allergy Verified 10/06/21 18:56 Vital Signs Vital Signs - 24 hr 10/06/21 12:53 10/06/21 16:30 Temperature 101.5 F H 101.1 F H Pulse Rate 123 H Respiratory Rate 22 H Blood Pressure 123/60 Pulse Oximetry 100 Oxygen Delivery Room Air Exam Narrative: General: Mildly ill appearing female. Weight: 131 kg. BMI: 45.2 HEENT: PERRL, EOMI. Conjunctivae anicteric. Tacky mucous membranes. Nec
--- NOTE | 2021-10-06 18:29 | ADMGEN ---
This patient, Sandra Sloan, was admitted to 2 Medical Room 261-01. Patient/family oriented to hospital policies and general routines including ID bracelet, bed and alarms, visiting hours, pain management, procedures, bathroom and other care routines, personal items, smoking policy, room service/diet, and visiting hours. Information on how to activate the Rapid Response Team has been discussed. Patient/Family are encouraged to report perceived risks to care and to ask questions if they do not understand what they are told or what they should do.
[2021-10-06 18:50] VITALS: BP 104/66; PULSE 92; RESP 16; TEMP 36.3; O2SAT 99
[2021-10-06 19:19] VITALS: BP 112/64; PULSE 65; RESP 16; TEMP 36.5; O2SAT 100
[2021-10-06] MEDS: SODIUM CHLORIDE 0.9% IV 1,000 ML 125 ML IV CONT (19:49)
[2021-10-07] MEDS: SODIUM CHLORIDE 0.9% IV 1,000 ML 125 ML IV CONT ×3 (03:40→19:36)
[2021-10-07 04:17] VITALS: BP 126/61; PULSE 102; RESP 16; TEMP 37.4; O2SAT 100
[2021-10-07 05:24] LABS: Basophils Percent Auto 0.3 % (0.2-1.2); Hematocrit 33.4 % (37.0-47.0); Immature Granulocyte Absolute 0.02 K/mm3 (0.00-0.031); Immature Granulocyte Percent A 0.3 % (0-0.5); Lymphocytes Absolute Auto 0.96 K/mm3 (0.9-3.2); Lymphocytes Percent Auto 14.3 % (18.3-44.2); Mean Corpuscular HGB Conc 29.9 g/dl (32-36); Mean Corpuscular Hemoglobin 23.6 pg (26-34); Mean Platelet Volume 10.5 fl (7.4-10.4); Monocytes Absolute Auto 0.5 K/mm3 (0.1-0.6); Neutrophils Absolute Auto 5.2 K/mm3 (1.3-6.7); Neutrophils Percent Auto 77.1 % (45.5-73.1); Platelet Count Result 229 k/mm3 (150-375); Red Blood Count 4.23 M/mm3 (4.2-5.4); Red Cell Distribution Width 17.2 % (11.5-14.5); White Blood Count 6.7 K/mm3 (4.5-10.0)
[2021-10-07 05:43] LABS: Alanine Aminotransferase 15 U/L (6-35); Albumin Level 3.4 g/dL (3.5-5.1); Alkaline Phosphatase 45 U/L (38-126); Anion Gap 11 mmol/L (8-16); Aspartate Amino Transferase 15 U/L (14-36); Bilirubin,Total 0.3 mg/dL (0.2-1.3); Blood Urea Nitrogen 8 mg/dL (7-17); Calcium 8.2 mg/dL (8.4-10.2); Carbon Dioxide 19 mmol/L (22-30); Chloride 108 mmol/L (98-107); Estimated CRCL calculation 133 ml/min; Estimated Glomerular Filt Rate > 60; Glucose 106 mg/dL (65-110); Potassium 3.6 mmol/L (3.4-5.0); Sodium 138 mmol/L (137-145)
--- NOTE | 2021-10-07 08:13 | PM.IMPN ---
Progress Note: A&P Assessment and Plan (1) Sepsis: Code(s): A41.9 - Sepsis, unspecified organism Status: Resolved Assessment and Plan: - No longer meeting Sepsis criteria. - Continue IVF and IV abx. - Urine and blood cultures are pending currently. - Will continue to monitor labs and vital signs (2) Pyelonephritis of right kidney: Code(s): N12 - Tubulo-interstitial nephritis, not specified as acute or chronic Status: Acute Assessment and Plan: - Continue ceftriaxone, pending urine culture. - Continue to monitor labs and VS. (3) Acute renal insufficiency: Code(s): N28.9 - Disorder of kidney and ureter, unspecified Status: Resolved Assessment and Plan: - Resolved. - Continue to monitor renal function. Additional Plan Barrier to discharge: Awaiting urine culture as patient continued to be febrile as high as 102.7 overnight. Time Spent With Patient Time: 10 minutes Subjective Date/time seen: 10/07/21 0750 This pleasant, 25-year-old female patient is examined at the bedside this morning in interval assessment after being admitted to the hospital with pyelonephritis and sepsis. She has not identified anything that makes her symptoms better or worse. She believes the IV abx are helping and we are still awaiting results of cultures. She She continued to be febrile over last evening with a temperature as high as 102.7?. Urine culture and blood cultures are still pending. Patient endorses that she feels a little bit better this morning, however she is tired and does complain of bilateral flank pain. She has no complaints of chest pain, dyspnea, nausea, vomiting, diarrhea and denies any overt urinary symptoms of urgency, frequency, hematuria or dysuria. She has a history of asthma that has not been problematic during this hospitalization and she has not had any reflux in which she has a history of. At this time she is not meeting sepsis criteria. Review of Systems Review of Systems: Twelve point review of systems was obtained All systems reviewed & are unremarkable except as noted in HPI and below Exam Const: General: comfortable and no acute distress HENMT: Ears: TM's normal bilaterally General nose exam: Normal nares present and no epistaxis Mouth: Yes moist mucous membranes Eyes: General: appearance normal, both eyes and all related structures Sclera: sclerae normal Pupils: Equal, round and reactive pupils present EOM: EOMs intact bilaterally Neck: Neck: supple and no JVD Thyroid: thyroid normal Carotids: no bruits Lymphatic: lymphadenopathy not noted Other: patient Moves neck in a full range of motion without any deficits. Resp: Effort & Inspection: normal respiratory effort Auscultation: clear to auscultation bilaterally Cardio: Rate: regular rate Rhythm: regular rhythm Heart sounds: no gallops, no murmurs and no rubs Other: S1 and S2 are present. There is no S3, S4, displaced PMI. GI: Inspection: non-distended GI Palp: Yes Soft to palpation, Yes Tenderness to palpation present (GI) ( Bilateral flank) and No Guarding due to palpation present (GI) Auscultation: normal bowel sounds Skin: General skin exam: normal color and no rashes or lesions noted Lesions: no lesions noted Rashes: no rashes noted Wounds: no wounds Neuro: General: gait normal Speech: normal speech Motor exam (neuro): 5/5 motor strength present throughout and Normal motor muscle tone present throughout Sensory Exam: normal sensation Extrem: General: normal to inspection, no edema and no pedal edema Other: patient freely and equally moves all extremities well. Psych: Mental Status: mental status grossly normal Affect: normal affect Other: Alert and oriented x3 Objective Data Vital Signs Vital Signs: Vital Signs - 24 hr 10/06/21 12:53 10/06/21 16:30 10/06/21 17:50 Temperature 101.5 F H 101.1 F H 99.1 F Pulse Rate 123 H Respiratory Rate 22 H Blood Pr
[2021-10-07 09:34] VITALS: PULSE 96; O2SAT 97
[2021-10-07] MEDS: ACETAMINOPHEN 325 MG TABLET 650 MG PO ×2 (11:04→17:20)
[2021-10-07 14:35] VITALS: BP 115/55; PULSE 72; RESP 20; TEMP 36.6; O2SAT 97
[2021-10-07 21:55] VITALS: BP 132/58; PULSE 85; RESP 21; TEMP 36.5; O2SAT 100
[2021-10-08] MEDS: SODIUM CHLORIDE 0.9% IV 1,000 ML 125 ML IV CONT (03:56)
[2021-10-08 05:30] LABS: Basophils Percent Auto 0.2 % (0.2-1.2); Eosinophils Absolute Auto 0.1 K/mm3 (0-0.3); Eosinophils Percent Auto 1.1 % (0-4.4); Hematocrit 32.6 % (37.0-47.0); Immature Granulocyte Absolute 0.01 K/mm3 (0.00-0.031); Immature Granulocyte Percent A 0.2 % (0-0.5); Lymphocytes Absolute Auto 1.42 K/mm3 (0.9-3.2); Lymphocytes Percent Auto 32.4 % (18.3-44.2); Mean Corpuscular HGB Conc 30.7 g/dl (32-36); Mean Corpuscular Hemoglobin 24.2 pg (26-34); Mean Corpuscular Volume 78.7 fl (80-100); Mean Platelet Volume 9.9 fl (7.4-10.4); Monocytes Absolute Auto 0.5 K/mm3 (0.1-0.6); Monocytes Percent Auto 10.7 % (2.6-8.5); Neutrophils Absolute Auto 2.4 K/mm3 (1.3-6.7); Neutrophils Percent Auto 55.4 % (45.5-73.1); Platelet Count Result 240 k/mm3 (150-375); Red Blood Count 4.14 M/mm3 (4.2-5.4); Red Cell Distribution Width 17.4 % (11.5-14.5); White Blood Count 4.4 K/mm3 (4.5-10.0)
[2021-10-08 05:46] LABS: Alanine Aminotransferase 15 U/L (6-35); Albumin Level 3.3 g/dL (3.5-5.1); Alkaline Phosphatase 44 U/L (38-126); Anion Gap 7 mmol/L (8-16); Aspartate Amino Transferase 17 U/L (14-36); Bilirubin,Total 0.2 mg/dL (0.2-1.3); Blood Urea Nitrogen 5 mg/dL (7-17); Carbon Dioxide 21 mmol/L (22-30); Chloride 113 mmol/L (98-107); Estimated CRCL calculation 151 ml/min; Estimated Glomerular Filt Rate > 60; Glucose 98 mg/dL (65-110); Potassium 3.9 mmol/L (3.4-5.0); Sodium 141 mmol/L (137-145)
[2021-10-08 05:58] VITALS: BP 147/81; PULSE 80; RESP 20; TEMP 36.2; O2SAT 98
--- NOTE | 2021-10-08 09:25 | PM.DS ---
DS: Admitting Diagnosis Discharge Date 10/08/2021 Admitting Diagnosis Sepsis, Right sided pyelonephritis and acute renal insufficiency DS: Discharge Diagnosis Discharge Diagnosis (1) Sepsis: Code(s): A41.9 - Sepsis, unspecified organism Status: Resolved Assessment and Plan: - No longer meeting Sepsis criteria. - Continue IVF and IV abx. - Blood culture negative x2, and only mixed growth on Urine culture. However, pt. had recent UA that demonstrated + growth of E.coli infection. - Will continue to monitor labs and vital signs (2) Pyelonephritis of right kidney: Code(s): N12 - Tubulo-interstitial nephritis, not specified as acute or chronic Status: Acute Assessment and Plan: - See problem #1. - Pt. is improved, VSS and the final result of the urine culture was mixed rachell. As she most recently had a positive UA of E.coli, will discharge with Cefdinir 300 mg po BID for 10 days and the pt. is given a list of PCP's with whom she may establish care. (3) Acute renal insufficiency: Code(s): N28.9 - Disorder of kidney and ureter, unspecified Status: Resolved Assessment and Plan: - Resolved. DS: Summary Hospital Course Reason for hospitalization: Sepsis, Pyelonephritis and Acute renal insufficiency Hospital Course: This pleasant, 25-year-old female with significant past medical history of asthma, GERD, iron deficiency anemia who presented to the emergency room on 10/06/2021 with complaints of having a fever and subsequently meeting sepsis criteria and diagnosis of right-sided pyelonephritis being made was admitted to the hospital for continued evaluation and management. CT exam was performed in the emergency room demonstrated asymmetric enlargement of the right kidney with heterogenous cortical enhancement is suspicious for pyelonephritis. Urinalysis and urine culture were ordered. the patient's urinalysis demonstrated positive nitrates, and trace leukocyte esterase. She was empirically started on Rocephin IV piggyback and urine was sent for culture. Culture has resulted that showed only mixed rachell. , however she had a recent urinalysis that was positive for E coli. We will empirically continue treatment as she has improved with the cephalosporin dosage. At this time patient has been afebrile for at least 24 hours, she endorses that she feels better without any abdominal pain, urinary complaints, fatigue or weakness. She has no chest pain, dyspnea, nausea, vomiting or diarrhea. She will be discharged home today with cefdinir 300 mg 1 tablet by mouth b.i.d. for 10 days and she is given a list of primary care providers with whom she must establish for follow-up. I had an at length discussion with patient about increasing her hydration status and about the need for follow-up and she verbalizes understanding. She is discharged today in a stable and improved state. Status at Discharge Functional status at discharge: independent ambulation Overall status at discharge: patient is back to baseline Time Spent with Patient Time attestation: Total time spent providing and/or coordinating discharge services: Time spent: Greater than 30 minutes Specific discharge activities: Objective data findings, post discharge plan of care and establishment of primary care physician. Exam Const: General: comfortable and no acute distress HENMT: Ears: TM's normal bilaterally General nose exam: Normal nares present and no epistaxis Mouth: Yes moist mucous membranes Eyes: General: appearance normal, both eyes and all related structures Sclera: sclerae normal Pupils: Equal, round and reactive pupils present EOM: EOMs intact bilaterally Neck: Neck: supple and no JVD Thyroid: thyroid normal Carotids: no bruits Lymphatic: lymphadenopathy not noted Other: patient Moves neck in a full range of motion without any deficits. Resp: Effort & Inspection: normal respiratory effort Auscultation: c
== END 2021-10-08 10:56 | disposition home or self-care (01) ==
LOC: ANHED 17:18 → ANH2MED 17:32
PROVIDERS: Emergency Medicine; Physician Assistant; Admitting Provider Internal Medicine; Emergency Provider Emergency Medicine; Visit Provider Nurse Practitioner Adult Health
DX: A41.9 Sepsis, unspecified organism (principal); N10 Acute pyelonephritis; N28.9 Disorder of kidney and ureter, unspecified; F17.290 Nicotine dependence, other tobacco product, uncomplicated
CPT/HCPCS: 36415; 71045; 74177; 80053; 83605; 83735; 85025; 87040; 87086; 87088; 96360; 96361; 96365; 96366; 96375; 99285; A9270; G0378; G0379; J0131; J0696; J1885; J7030; Q9967

== ENCOUNTER 2022-02-22 12:37 | Emergency (ER) | payer OTHER, SELFPAY ==
[2022-02-22 12:42] VITALS: BP 158/73; PULSE 99; RESP 20; TEMP 37.4; O2SAT 100
--- NOTE | 2022-02-22 13:07 | ED.URI ---
HPI - URI/Sore Throat General Chief Complaint: Upper Respiratory Infection Stated Complaint: Fever, Sore Throat, Cough Time Seen by Provider: 02/22/22 13:07 Source: patient and RN notes reviewed Mode of arrival: ambulatory Limitations: no limitations History of Present Illness HPI Narrative: 26-year-old female presented for complaint of headache, body aches, sinus pressure/congestion, cough, fever/chills. Onset yesterday. She denies shortness of breath, wheezing, nausea, vomiting, diarrhea. She has not taking anything for symptoms. MD elicited complaint: cough Related Data Home Medications Medication Instructions Recorded Confirmed medroxyprogesterone 150 mg/mL 150 mg IM [id number] 06/07/21 02/22/22 intramuscular suspension cyclobenzaprine 5 mg tablet 5 mg PO TID 02/22/22 02/22/22 sertraline 50 mg tablet 50 mg PO DAILY 02/22/22 02/22/22 Allergies Allergy/AdvReac Type Severity Reaction Status Date / Time No Known Allergies Allergy Verified 10/06/21 18:56 Review of Systems Review of Systems: ROS per [facility] Past Medical History Medical History Anxiety Depression Post traumatic stress disorder Surgical History Surgical History History of laparoscopic cholecystectomy (09/13/21) Family History Family History Grandparent Diabetes mellitus Other No pertinent family history Social History Social History Social History: Surrogate medical decision maker: Ashtyn Moore (grandmother) or Marko Reyes (significant other). Code status: Full code. Smoking status: Former smoker Tobacco type: cigarettes Second hand tobacco smoke exposure: No Alcohol intake: never Substance use: never Substance use type: does not use Other substance usage details: marijuana use Last use: 2.5 years ago Additional living arrangements comments: Lives with fianc? and 8 month old child. Additional occupation/education comments: Works for [employer]. Spiritual care concerns: No Exam Narrative: GENERAL: Ill-appearing, nontoxic HEAD: Normocephalic EYES: PERRLA, conjunctivae clear ENT: Mucous membranes moist. TMs pearly manning with dull light reflex bilaterally; no tragal tenderness. Oropharynx erythematous without lesions or exudate, CHEST: Clear to auscultation, breath sounds equal. No wheezing, rhonchi, rales, or stridor. No respiratory distress, speaks in full sentences. HEART: Regular rate and rhythm. No murmur heard. SKIN: Warm, dry, no rash. NEURO: Alert and oriented x3. PSYCH: Normal mood and affect Course Course Emergency Course: Patient is aware of diagnosis, understands and agrees to treatment plan. Anticipatory guidance given. Patient agrees to follow-up as directed and is aware of reasons to seek care at the emergency department. Portions of this record may have been created with voice recognition software Level of Care: Express Care Visit Vital Signs Vital signs: Vital Signs Temperature 99.4 F 02/22/22 12:42 Pulse Rate 99 02/22/22 12:42 Respiratory Rate 20 02/22/22 12:42 Blood Pressure 158/73 H 02/22/22 12:42 Pulse Oximetry 100 02/22/22 12:42 Oxygen Delivery Room Air 02/22/22 12:42 Temperature 99.4 F 02/22/22 12:42 Pulse Rate 99 02/22/22 12:42 Respiratory Rate 20 02/22/22 12:42 Blood Pressure 158/73 H 02/22/22 12:42 Pulse Oximetry 100 02/22/22 12:42 Oxygen Delivery Room Air 02/22/22 12:42 reviewed MDM - URI/Sore Throat MDM Narrative Medical decision making narrative: COVID and flu positive. Results reviewed with patient. Advised supportive measures and signs/symptoms to go to the ER. Pt is appropriate for outpt treatment and f/u. Differential Diagnosis Differential diagnosis: Likely upper respira
== END 2022-02-22 13:24 | disposition home or self-care (01) ==
PROVIDERS: Emergency Provider Nurse Practitioner Family; PCP Nurse Practitioner Adult Health
DX: U07.1 COVID-19 (principal); J10.1 Influenza due to other identified influenza virus with other respiratory manifestations; Z87.891 Personal history of nicotine dependence; F41.9 Anxiety disorder, unspecified; F32.A Depression, unspecified
CPT/HCPCS: 87426; 87804; 99213; C9803; G0463

== ENCOUNTER 2022-02-27 16:50 | Emergency (ER) | payer OTHER, SELFPAY ==
[2022-02-27 16:55] VITALS: BP 124/89; PULSE 102; RESP 18; TEMP 36.5; O2SAT 100
--- NOTE | 2022-02-27 17:36 | ED.WOUNDLAC ---
HPI - Wound/Laceration General Chief Complaint: Wound/Laceration Stated Complaint: Stitches Check Time Seen by Provider: 02/27/22 17:36 Source: patient Mode of arrival: ambulatory Limitations: no limitations History of Present Illness HPI narrative: 26-year-old female presents to have sutures to right hand checked. States that they look loose to her. Just had sutures placed 3 days ago after cutting herself with kitchen knife. All systems reviewed and negative except as noted above. Related Data Home Medications Medication Instructions Recorded Confirmed medroxyprogesterone 150 mg/mL 150 mg IM [id number] 06/07/21 02/27/22 intramuscular suspension sertraline 50 mg tablet 50 mg PO DAILY 02/22/22 02/27/22 Allergies Allergy/AdvReac Type Severity Reaction Status Date / Time No Known Allergies Allergy Verified 02/27/22 17:11 Review of Systems Review of Systems: CONSTITUTIONAL: Denies fever, chills, or sweats. EYES: Denies visual changes, redness, or discharge. ENT: Denies rhinorrhea, congestion, sore throat, or otalgia. CARDIOVASCULAR: Denies chest pain, palpitations, or edema. RESPIRATORY: Denies cough or dyspnea. GASTROINTESTINAL: Denies abdominal pain, nausea, vomiting, or diarrhea. GENITOURINARY: Denies dysuria or hematuria. SKIN: Denies rash or itching. Patient here for wound check. MUSCULOSKELETAL: Denies back pain, joint pain, or myalgia. NEUROLOGIC: Denies headache, numbness, or weakness. PSYCHIATRIC: Denies anxiety or depression. All other systems reviewed are negative, except as documented in HPI. [facility] Past Medical History Medical History Anxiety Depression Post traumatic stress disorder Surgical History Surgical History History of laparoscopic cholecystectomy (09/13/21) Family History Family History Grandparent Diabetes mellitus Other No pertinent family history Social History Social History Social History: Surrogate medical decision maker: Ashtyn Moore (grandmother) or Marko Reyes (significant other). Code status: Full code. Smoking status: Former smoker Tobacco type: cigarettes Second hand tobacco smoke exposure: No Alcohol intake: never Substance use: never Substance use type: does not use Other substance usage details: marijuana use Last use: 2.5 years ago Additional living arrangements comments: Lives with shanna and 8 month old child. Additional occupation/education comments: Works for [employer]. Spiritual care concerns: No Comments At time of signature, agree with nursing past medical, surgical, social and family history. There is no relevant family history pertinent to the presenting complaint. Exam Narrative: GENERAL: This is a well-nourished, well-developed patient, in no apparent distress. HEAD: normocephalic, atraumatic. EYES: PERRL. Sclera clear/white. Vision is grossly intact. EARS: External ears normal NECK: Neck supple, non-tender without lymphadenopathy, masses or thyromegaly. CARDIOVASCULAR: Regular rate and rhythm without murmurs, gallops, or rubs. RESPIRATORY: Clear to auscultation. Breath sounds equal bilaterally. No wheezes, rales, or rhonchi. SKIN: warm, Dry, with no suspicious lesions or rash, good texture and turgor. 1 cm laceration dorsal aspect right hand. Healing. No signs of infection. Three sutures in place. NEURO: awake, alert, and oriented to person, place and time. There were no obvious focal neurologic abnormalities. EXTREMITIES: No joint tenderness, effusion, or edema noted. Course Course Level of Care: Express Care Visit Vital Signs Vital signs: Vital Signs Temperature 36.5 C 02/27/22 16:55 Pulse Rate 102 H 02/27/22 16:55 Respiratory Rate 18 02/27/22 16:5
== END 2022-02-27 17:48 | disposition home or self-care (01) ==
PROVIDERS: Emergency Provider Nurse Practitioner Family; PCP Nurse Practitioner Adult Health
DX: S61.411D Laceration without foreign body of right hand, subsequent encounter (principal); Z87.891 Personal history of nicotine dependence; W26.0XXD Contact with knife, subsequent encounter
CPT/HCPCS: 99212; G0463

== ENCOUNTER 2022-04-17 15:59 | Emergency (ER) | payer OTHER, SELFPAY ==
[2022-04-17 16:12] VITALS: BP 147/79; PULSE 91; RESP 12; TEMP 36.8; O2SAT 100
--- NOTE | 2022-04-17 16:27 | ED.HA ---
HPI - Headache General Chief Complaint: Headache Stated Complaint: day Time Seen by Provider: 04/17/22 16:27 Source: patient Mode of arrival: ambulatory Limitations: no limitations History of Present Illness HPI Narrative: 26 y/o female presented for c/o left forehead pain after injury this morning. Endorses the trunk of her car fell and struck the site. She denies LOC. States pain is mild and the knot is getting better. Reports one episode of feeling dizzy today. Has not taken anything for pain. Denies vision changes, photophobia, n/v/d. Requesting note to return to work today. Related Data Home Medications Medication Instructions Recorded Confirmed medroxyprogesterone 150 mg/mL 150 mg IM [id number] 06/07/21 04/17/22 intramuscular suspension sertraline 50 mg tablet 50 mg PO DAILY 02/22/22 04/17/22 Allergies Allergy/AdvReac Type Severity Reaction Status Date / Time No Known Allergies Allergy Verified 04/17/22 16:06 Review of Systems Review of Systems: CONSTITUTIONAL: Denies body aches, fever, chills, or sweats. EYES: Denies visual changes, redness, or discharge. ENT: Denies rhinorrhea, epistaxis, or otalgia. CARDIOVASCULAR: Denies chest pain, palpitations, or edema. RESPIRATORY: Denies cough or dyspnea. SKIN: Denies rash, itching, or wounds. MUSCULOSKELETAL: Denies back pain, joint pain, or myalgia. NEUROLOGIC: Denies numbness, tingling, or weakness. All systems reviewed & are unremarkable except as noted in HPI and below PMFSH Past Medical History Medical History Anxiety Depression Post traumatic stress disorder Surgical History Surgical History History of laparoscopic cholecystectomy (09/13/21) Family History Family History Grandparent Diabetes mellitus Other No pertinent family history Social History Social History Social History: Surrogate medical decision maker: Ashtyn Moore (grandmother) or Marko Reyes (significant other). Code status: Full code. Smoking status: Former smoker Tobacco type: cigarettes Second hand tobacco smoke exposure: No Alcohol intake: never Substance use: never Substance use type: does not use Other substance usage details: marijuana use Last use: 2.5 years ago Living arrangements: with family Additional living arrangements comments: Lives with matias? and 8 month old child. Additional occupation/education comments: Works for [employer]. Spiritual care concerns: No Comments At time of signature, I have reviewed and agree with nursing past medical, surgical, social and family history unless otherwise noted. Please see nursing chart for further information. There is no relevant family history pertinent to the presenting complaint Exam Narrative: GENERAL: Well-appearing, no acute distress. HEAD: Normocephalic, atraumatic. Mild tenderness to left forehead, no laceration or apparent hematoma EYES: EOMI. PERRLA. No redness or drainage. Conjunctivae normal. ENT: Mucous membranes pink and moist. No rhinorrhea. TMs normal bilaterally. NECK: Normal AROM. CHEST: Clear to auscultation. HEART: Regular rate and rhythm. EXTREMITIES: Normal range of motion. No edema. SKIN: Warm, dry, no rash. Capillary refill normal. Normal skin turgor. NEURO: No focal deficits. Alert and oriented x3. Gait steady. Course Course Emergency Course: Patient is aware of diagnosis, understands and agrees to treatment plan. Anticipatory guidance given. Patient agrees to follow-up as directed and is aware of reasons to seek care at the emergency department. Portions of this record may have been created with voice recognition software Level of Care: Express Care Visit Vital Signs Vital signs: Vital Signs Temperature
== END 2022-04-17 16:35 | disposition home or self-care (01) ==
PROVIDERS: Emergency Provider Nurse Practitioner Family; PCP Family Medicine
DX: S00.83XA Contusion of other part of head, initial encounter (principal); W20.8XXA Other cause of strike by thrown, projected or falling object, initial encounter; F41.9 Anxiety disorder, unspecified; F32.A Depression, unspecified
CPT/HCPCS: 99213; G0463

== ENCOUNTER 2022-08-06 16:08 | Emergency (ER) | payer OTHER, SELFPAY ==
[2022-08-06 16:21] VITALS: BP 141/65; PULSE 96; RESP 16; TEMP 37.4; O2SAT 100
--- NOTE | 2022-08-06 16:24 | ED.UPPEXIN ---
HPI - Extremity Injury (Upper) General Chief Complaint: Extremity Injury, Upper Stated Complaint: Left Hand Pain Time Seen by Provider: 08/06/22 16:32 Source: patient Mode of arrival: ambulatory Limitations: no limitations History of Present Illness HPI narrative: 26-year-old female presented for concern infection to left thumbnail after the nail was chemically removed with Dr Rojo on 06/14/22. Denies complications following the surgery, and has been cleansing the site routinely and keeping it covered when at work. States where the nail bed was located is gaping from the cuticle site, and has had yellow/red area to the wound bed. Denies any drainage/pus from the site, no redness or swelling. Per notes she was seen for f/u on 07/16 and showed no sign of infection, she is to f/u with Dr Rojo around 08/17/22. Related Data Home Medications Medication Instructions Recorded Confirmed medroxyprogesterone 150 mg/mL 150 mg IM [id number] 06/07/21 08/06/22 intramuscular suspension sertraline 50 mg tablet 50 mg PO DAILY 02/22/22 08/06/22 Allergies Allergy/AdvReac Type Severity Reaction Status Date / Time No Known Allergies Allergy Verified 08/06/22 16:26 Review of Systems Review of Systems: CONSTITUTIONAL: Denies body aches, fever, chills EYES: Denies visual changes ENT: Denies rhinorrhea, congestion CARDIOVASCULAR: Denies chest pain, palpitations, or edema. RESPIRATORY: Denies cough or dyspnea. GASTROINTESTINAL: Denies abdominal pain, nausea, vomiting, or diarrhea. SKIN: per HPI MUSCULOSKELETAL: Denies back pain, joint pain, or myalgia. NEUROLOGIC: Denies headache, numbness, tingling, or weakness. All systems reviewed & are unremarkable except as noted in HPI and below PMFSH Past Medical History Medical History Anxiety Depression Post traumatic stress disorder Surgical History Surgical History History of laparoscopic cholecystectomy (09/13/21) Family History Family History Grandparent Diabetes mellitus Other No pertinent family history Social History Social History Social History: Surrogate medical decision maker: Ashtyn Moore (grandmother) or Marko Eric (significant other). Code status: Full code. Smoking status: Former smoker Tobacco type: cigarettes Second hand tobacco smoke exposure: No Alcohol intake: never Substance use: never Substance use type: does not use Other substance usage details: marijuana use Last use: 2.5 years ago Living arrangements: with family Additional living arrangements comments: Lives with fianc? and 8 month old child. Additional occupation/education comments: Works for [employer]. Spiritual care concerns: No Comments At time of signature, I have reviewed and agree with nursing past medical, surgical, social and family history unless otherwise noted. Please see nursing chart for further information. There is no relevant family history pertinent to the presenting complaint Exam Narrative: GENERAL: Well-appearing EYES: PERRLA, conjunctivae clear NECK: Supple. CHEST: Speaks in full sentences. No respiratory distress. HEART: Regular rate and rhythm. Normal and equal peripheral pulses. EXTREMITIES: Left thumbnail with yellow and red wound bed, dry, nontender, no drainage or swelling, no surrounding erythema/induration. Finger has normal strength and sensation, normal range of motion. pulse palpable and equal bilaterally, skin warm, dry, pink. Capillary refill less than 3 seconds. SKIN: Warm, dry, no rash. NEURO: Alert and oriented x3. PSYCH: Normal mood and affect Course Course Emergency Course: Patient is aware of diagnosis, understands and agrees to treatment plan. Anticipatory guidance given. Reza
== END 2022-08-06 17:10 | disposition home or self-care (01) ==
PROVIDERS: Emergency Provider Nurse Practitioner Family; PCP Family Medicine
DX: Z48.01 Encounter for change or removal of surgical wound dressing (principal); Z87.891 Personal history of nicotine dependence; F41.9 Anxiety disorder, unspecified; F32.A Depression, unspecified
CPT/HCPCS: 99213; G0463

== ENCOUNTER 2022-08-08 09:29 | Outpatient (CLI) | payer OTHER, SELFPAY ==
[2022-08-08 10:05] LABS: Basophils Absolute Auto 0.1 K/mm3 (0.0-0.1); Basophils Percent Auto 0.9 % (0.2-1.2); Eosinophils Absolute Auto 0.1 K/mm3 (0-0.3); Eosinophils Percent Auto 1.5 % (0-4.4); Hematocrit 39.7 % (37.0-47.0); Hemoglobin 12.2 g/dL (12.0-15.0); Immature Granulocyte Absolute 0.01 K/mm3 (0.00-0.031); Immature Granulocyte Percent A 0.2 % (0-0.5); Lymphocytes Absolute Auto 2.02 K/mm3 (0.9-3.2); Lymphocytes Percent Auto 34.4 % (18.3-44.2); Mean Corpuscular HGB Conc 30.7 g/dl (32-36); Mean Corpuscular Hemoglobin 24.3 pg (26-34); Mean Corpuscular Volume 79.1 fl (80-100); Mean Platelet Volume 9.4 fl (7.4-10.4); Monocytes Absolute Auto 0.3 K/mm3 (0.1-0.6); Monocytes Percent Auto 5.6 % (2.6-8.5); Neutrophils Absolute Auto 3.4 K/mm3 (1.3-6.7); Neutrophils Percent Auto 57.4 % (45.5-73.1); Platelet Count Result 356 k/mm3 (150-375); Red Blood Count 5.02 M/mm3 (4.2-5.4); Red Cell Distribution Width 16.1 % (11.5-14.5); White Blood Count 5.9 K/mm3 (4.5-10.0)
[2022-08-08 10:19] LABS: Alanine Aminotransferase 32 U/L (6-35); Albumin Level 4.3 g/dL (3.5-5.1); Alkaline Phosphatase 40 U/L (38-126); Anion Gap 6 mmol/L (8-16); Aspartate Amino Transferase 31 U/L (14-36); Bilirubin,Total 0.6 mg/dL (0.2-1.3); Blood Urea Nitrogen 10 mg/dL (7-17); Calcium 8.7 mg/dL (8.4-10.2); Carbon Dioxide 26 mmol/L (22-30); Chloride 109 mmol/L (98-107); Cholesterol 137 mg/dL (0-200); Estimated Glomerular Filt Rate > 60; Glucose 89 mg/dL (65-110); HDL Direct 42 mg/dL; Potassium 4.1 mmol/L (3.4-5.0); Sodium 141 mmol/L (137-145); Triglycerides 97 mg/dL (<150)
[2022-08-08 10:30] LABS: LDL Cholesterol Direct 79 mg/dL
[2022-08-08 10:48] LABS: Thyroid Stimulating Hormone 0.945 uIU/mL (0.465-4.680)
[2022-08-08 10:52] LABS: Free T4 Free Thyroxine 1.06 ng/mL (0.78-2.19); Vitamin D 25 Hydroxy 17.7 ng/mL
[2022-08-08 10:58] LABS: Creatinine Urine 174.2 mg/dL
[2022-08-08 11:02] LABS: MALB Creatinine Ratio 4.8 mg/g (0-30); Microalbumin Urine Random 8.3 mg/L (0-16.7)
[2022-08-08 11:03] LABS: Total Triiodothyronine (T3) 1.56 NG/ML (0.97-1.69)
[2022-08-08 11:39] LABS: Folic Acid > 20.0 ng/mL (2.76->20)
[2022-08-08 12:39] LABS: Iron 111 ug/dL (37-170)
[2022-08-08 12:48] LABS: Percent Iron Saturation 28 % (20-50)
[2022-08-12 01:56] LABS: Vitamin B1 11 nmol/L (8-30)
[2022-08-12 14:45] LABS: Vitamin B6 51.9 ng/mL (2.1-21.7)
[2022-08-12 21:02] LABS: Alpha-Tocopherol 8.2 mg/L (5.7-19.9); Beta-Gamma Tocopherol 1.7 mg/L (<=4.3)
[2022-08-18 17:38] LABS: Vitamin B2 11.2 nmol/L (6.2-39.0)
== END 2022-08-08 09:30 | disposition home or self-care (01) ==
LOC: ANHLAB 09:32
PROVIDERS: PCP Family Medicine; Visit Provider Family Medicine
DX: E55.9 Vitamin D deficiency, unspecified (principal); E66.9 Obesity, unspecified; R53.83 Other fatigue; R53.1 Weakness; I10 Essential (primary) hypertension
CPT/HCPCS: 36415; 80053; 80061; 82043; 82306; 82607; 82746; 83540; 83550; 84207; 84252; 84425; 84439; 84443; 84446; 84480; 85025

== ENCOUNTER 2022-12-07 16:13 | Emergency (ER) | payer OTHER, SELFPAY ==
[2022-12-07 16:29] VITALS: BP 145/70; PULSE 98; RESP 18; TEMP 37.2; O2SAT 100
--- NOTE | 2022-12-07 16:50 | ED.URI ---
HPI - URI/Sore Throat General Chief Complaint: Upper Respiratory Infection Stated Complaint: sore throat, achey Time Seen by Provider: 12/07/22 16:40 Source: patient and RN notes reviewed Mode of arrival: ambulatory Limitations: no limitations History of Present Illness HPI Narrative: Patient presents today complaining of a sore throat and congestion since last night with body aches that started today. Denies any additional symptoms to include cough, rhinorrhea, fever. Currently rates her pain 3/10 and has tried no [id number] treatment prior to arrival. Denies known sick contacts. Related Data Home Medications Medication Instructions Recorded Confirmed medroxyprogesterone 150 mg/mL 150 mg IM [id number] 06/07/21 08/06/22 intramuscular suspension cyclobenzaprine 10 mg tablet mg 12/07/22 famotidine 40 mg tablet mg 12/07/22 Allergies Allergy/AdvReac Type Severity Reaction Status Date / Time No Known Allergies Allergy Verified 12/07/22 16:31 Review of Systems Review of Systems: CONSTITUTIONAL: Denies fever, chills, or sweats.+ body aches EYES: Denies visual changes, redness, or discharge. ENT: Denies rhinorrhea, or otalgia.+ congestion, sore throat CARDIOVASCULAR: Denies chest pain, palpitations, or edema. RESPIRATORY: Denies cough or dyspnea. GASTROINTESTINAL: Denies abdominal pain, nausea, vomiting, or diarrhea. GENITOURINARY: Denies dysuria or hematuria. SKIN: Denies rash, itching, or wounds. MUSCULOSKELETAL: Denies back pain, joint pain, or myalgia. NEUROLOGIC: Denies headache, numbness, tingling, or weakness. PSYCH: Denies depression or anxiety. [facility] Past Medical History Medical History Anxiety Depression Post traumatic stress disorder Surgical History Surgical History History of laparoscopic cholecystectomy (09/13/21) Family History Family History Grandparent Diabetes mellitus Other No pertinent family history Social History Social History (Reviewed 12/07/22 @ 16:51 by Leslee Melgar, [facility], ) Social History: Surrogate medical decision maker: Ashtyn Moore (grandmother) or Marko Eric (significant other). Code status: Full code. Smoking status: Former smoker Tobacco type: cigarettes Second hand tobacco smoke exposure: No Alcohol intake: never Substance use: never Substance use type: does not use Other substance usage details: marijuana use Last use: 2.5 years ago Living arrangements: with family Additional living arrangements comments: Lives with fianc? and 8 month old child. Additional occupation/education comments: Works for [employer]. Spiritual care concerns: No Comments At time of signature, I have reviewed and agree with nursing past medical, surgical, social and family history unless otherwise noted. Please see nursing chart for further information. There is no relevant family history pertinent to the presenting complaint Exam Narrative: GENERAL: Well-appearing, well-nourished, and in no acute distress. HEAD: Normocephalic, atraumatic. EYES: EOMI. No redness or drainage. Conjunctivae normal. ENT: Mucous membranes pink and moist. Nares clear. No rhinorrhea. TMs normal bilaterally. Throat mildly erythematous without edema or exudate. Uvula midline. NECK: Normal AROM. Supple. No lymphadenopathy. CHEST: No respiratory distress. Clear to auscultation. HEART: Regular rate and rhythm. No murmur appreciated. EXTREMITIES: Normal range of motion. No edema. SKIN: Warm, dry, no rash. Capillary refill normal. Normal skin turgor. NEURO: No focal deficits. Alert and oriented x3. Gait steady. PSYCH: Normal affect. No signs of depression or anxiety. Course Course Level of Care: Express Care Visit Vital Signs Vital signs: Vital Signs
== END 2022-12-07 16:58 | disposition home or self-care (01) ==
PROVIDERS: Emergency Provider Nurse Practitioner; PCP Family Medicine
DX: J02.0 Streptococcal pharyngitis (principal); Z79.899 Other long term (current) drug therapy; Z87.891 Personal history of nicotine dependence; Z20.822 Contact with and (suspected) exposure to COVID-19
CPT/HCPCS: 87426; 87804; 87880; 99213; C9803; G0463

== ENCOUNTER 2022-12-13 23:01 | Emergency (ER) | payer OTHER, SELFPAY ==
--- NOTE | ~2022-12-13 | XR_ITS ---
EXAMINATION: XR hand RT min 3V DATE: 12/13/2022 23:15 INDICATION: Right hand injury and pain. TECHNIQUE: 3 views of right hand were obtained. COMPARISON: None. FINDINGS: Bone alignment is normal. No fracture. Joint spaces are normal. IMPRESSION: 1. Normal right hand. Reviewed, dictated and finalized at location E. IMPRESSION: 1. Normal right hand.
[2022-12-13 23:05] VITALS: BP 152/83; PULSE 103; RESP 18; TEMP 36.2; O2SAT 100
[2022-12-14 01:21] VITALS: BP 132/77; PULSE 76; RESP 19; O2SAT 100
--- NOTE | 2022-12-14 01:37 | ED.GENADULT ---
HPI - General Adult General Chief complaint: Extremity Injury, Upper Stated complaint: right hand injury Time Seen by Provider: 12/14/22 01:20 History of Present Illness HPI narrative: 27-year-old female presented to the emergency department for evaluation of a right hand injury. Patient states she was at work when she was walking quickly and struck her hand on some metal pans. Patient does have ecchymosis and mild swelling at the dorsum of the right hand. Related Data Home Medications Medication Instructions Recorded Confirmed medroxyprogesterone 150 mg/mL 150 mg IM [id number] 06/07/21 08/06/22 intramuscular suspension cyclobenzaprine 10 mg tablet mg 12/07/22 famotidine 40 mg tablet mg 12/07/22 Allergies Allergy/AdvReac Type Severity Reaction Status Date / Time No Known Allergies Allergy Verified 12/14/22 01:24 Review of Systems Review of Systems: All systems reviewed & are unremarkable except as noted in HPI and below PMFSH Past Medical History Medical History Anxiety Depression Post traumatic stress disorder Surgical History Surgical History History of laparoscopic cholecystectomy (09/13/21) Family History Family History Grandparent Diabetes mellitus Other No pertinent family history Social History Social History Social History: Surrogate medical decision maker: Ashtyn Moore (grandmother) or Marko Reyes (significant other). Code status: Full code. Smoking status: Former smoker Tobacco type: cigarettes Second hand tobacco smoke exposure: No Alcohol intake: never Substance use: never Substance use type: does not use Other substance usage details: marijuana use Last use: 2.5 years ago Living arrangements: with family Additional living arrangements comments: Lives with fianc? and 8 month old child. Additional occupation/education comments: Works for [employer]. Spiritual care concerns: No Exam Narrative: APPEARANCE: Well appearing, no pain, no distress, well-nourished. HEAD: normocephalic, atraumatic. EYES: PERRLA/EOMI, conjunctivae clear. NOSE: Normal no drainage EARS:TMS clear with good light reflex. THROAT: Pharynx clear, no exudate. NECK: Supple. No adenopathy, no masses. RESPIRATORY: Airway patent, respirations nonlabored. Clear to auscultation bilaterally, no rales, rhonchi, wheezing. CARDIOVASCULAR: Regular rate and rhythm without murmurs rubs or gallops. ABDOMINAL: Soft, nontender, nondistended, normal bowel sounds MUSCULOSKELETAL: Tenderness in dorsum of right hand NEURO: Alert. Cranial nerves II through XII intact. Good gait. Good coordination SKIN: Warm, dry. Normal Color Course Course Emergency Course: 27-year-old female presented to ED for evaluation of right hand pain. X-rays were negative for acute fracture or dislocation. Patient was provided an Jc wrap for comfort. Patient was encouraged to take Tylenol and ibuprofen for pain control and use ice therapy as needed. Patient was encouraged of close follow-up with her family doctor. All questions concerns were addressed. Vital Signs Vital signs: Vital Signs Temperature 97.2 F L 12/13/22 23:05 Pulse Rate 103 H 12/13/22 23:05 Respiratory Rate 18 12/13/22 23:05 Blood Pressure 152/83 H 12/13/22 23:05 Pulse Oximetry 100 12/13/22 23:05 Oxygen Delivery Room Air 12/13/22 23:05 Temperature 97.2 F L 12/13/22 23:05 Pulse Rate 76 12/14/22 01:50 Respiratory Rate 20 12/14/22 01:50 Blood Pressure 139/82 12/14/22 01:50 Pulse Oximetry 100 12/14/22 01:50 Oxygen Delivery Room Air 12/14/22 01:21 Medical Decision Making Vital Signs Vital Signs: Vital Signs Temperature 97.2 F L 12/13/22 23:05 Pulse
[2022-12-14 01:50] VITALS: BP 139/82; PULSE 76; RESP 20; O2SAT 100
== END 2022-12-14 01:54 | disposition home or self-care (01) ==
PROVIDERS: Emergency Provider Emergency Medicine; PCP Family Medicine
DX: S60.221A Contusion of right hand, initial encounter (principal); Z90.49 Acquired absence of other specified parts of digestive tract; Z87.891 Personal history of nicotine dependence; W22.8XXA Striking against or struck by other objects, initial encounter
CPT/HCPCS: 73130; 99283

== ENCOUNTER 2022-12-18 12:51 | Outpatient (CLI) | payer OTHER, SELFPAY ==
--- NOTE | 2022-12-18 14:30 | NEURO_ITS ---
Impression: # Non-diabetic complains of left upper extremity discomfort. # Normal Nerve Conduction Study, no Carpal Tunnel Syndrome or ulnar neuropathy. # Normal Needle/EMG exam. # Clinical correlation recommended. Nerve Conduction Studies Anti Sensory Summary Table Stim Site NR Peak (ms) P-T Amp (?V) Site1 Site2 Delta-P (ms) Dist (cm) Ernesto (m/s) Left Median Anti Sensory (2-3nd Digit) Wrist 2.7 58.3 Wrist 2-3nd Digit 2.7 14.0 52 Wrist 2.7 34.4 Wrist 2-3nd Digit 2.7 14.0 52 Left Radial Anti Sensory (Base 1st Digit) Wrist 1.7 10.9 Wrist Base 1st Digit 1.7 0.0 Left Ulnar Anti Sensory (5th Digit) Wrist 2.2 17.9 Wrist 5th Digit 2.2 14.0 64 Motor Summary Table Stim Site NR Onset (ms) O-P Amp (mV) Site1 Site2 Delta-0 (ms) Dist (cm) Ernesto (m/s) Left Median Motor (Abd Poll Brev) Wrist 3.0 2.2 Elbow Wrist 5.0 32.0 64 Elbow 8.0 3.4 Left Ulnar Motor (Abd Dig Minimi) Wrist 2.8 9.6 A Elbow Wrist 5.1 31.0 61 A Elbow 7.9 6.3 F Wave Studies NR F-Lat (ms) L-R F-Lat (ms) Left Median (Mrkrs) (Abd Poll Brev) 27.00 Left Ulnar (Mrkrs) (Abd Dig Min) 27.99 EMG Side Muscle Nerve Root Ins Act Fibs Amp Dur Recrt Comment Left 1stDorInt Ulnar C8-T1 Nml Nml Nml Nml Nml Left Ext Indicis Radial (Post Int) C7-8 Nml Nml Nml Nml Nml Left Ext Digitorum Radial (Post Int) C7-8 Nml Nml Nml Nml Nml Left BrachioRad Radial C5-6 Nml Nml Nml Nml Nml Left PronatorTeres Median C6-7 Nml Nml Nml Nml Nml Left Abd Poll Brev Median C8-T1 Nml Nml Nml Nml Nml MTDD
== END 2022-12-18 12:52 | disposition home or self-care (01) ==
LOC: ANHNEURO 12:51
PROVIDERS: PCP Family Medicine; Visit Provider Plastic Surgery
DX: R20.2 Paresthesia of skin (principal)
CPT/HCPCS: 95886; 95909

== ENCOUNTER 2023-01-29 19:01 | Emergency (ER) | payer OTHER, SELFPAY ==
--- NOTE | 2023-01-29 19:05 | ED.GENADULT ---
HPI - General Adult General Chief complaint: Upper Respiratory Infection Stated complaint: Bodyaches Time Seen by Provider: 01/29/23 19:09 Source: patient, RN notes reviewed and old records reviewed Mode of arrival: ambulatory Limitations: no limitations History of Present Illness HPI narrative: 27-year-old female presents to the [facility] with complaints of generalized body aches for 4 hours prior to arrival. Patient denies any other symptoms. Patient states that she is concerned she might have strep because ?she waited too long last time. ? Has not taken her temperature. Denies sore throat, cough, congestion States that she could not keep up at work so she came in to be tested for why she does not feel well. Patient's only complaint is generalized body aches. Had taken 1 dose of Tylenol and is not feeling better Onset (ago): hour(s) (4) Treatments prior to arrival: other (Tylenol) Related Data Home Medications Medication Instructions Recorded Confirmed medroxyprogesterone 150 mg/mL 150 mg IM [id number] 06/07/21 08/06/22 intramuscular suspension cyclobenzaprine 10 mg tablet mg 12/07/22 famotidine 40 mg tablet mg 12/07/22 Allergies Allergy/AdvReac Type Severity Reaction Status Date / Time No Known Allergies Allergy Verified 01/29/23 19:08 Review of Systems Review of Systems: All systems reviewed & are unremarkable except as noted in HPI and below Constitutional: Constitutional: Reports no additional constitutional complaints Eyes: Eyes: Reports no additional eye complaints ENT: Reports system reviewed and no additional complaints, except as documented Cardiovascular: Cardiovascular: Reports no additional cardiovascular complaints, Denies chest pain and Denies dyspnea Respiratory: Respiratory: Reports no additional respiratory complaints, Denies chest congestion, Denies cough and Denies dyspnea Gastrointestinal: Gastrointestinal: Reports no additional gastrointestinal complaints, Denies abdominal pain, Denies nausea and Denies vomiting Musculoskeletal: Musculoskeletal: Reports no additional musculoskeletal complaints Integumentary/Breasts: Skin/Breast: Reports system reviewed and no additional complaints, except as docu Neurologic: Reports system reviewed and no additional complaints, except as documented Psychiatric: Psychiatric: Reports no additional psychiatric complaints Allergic/Immunologic: Allergic/Immunologic: Reports no additional allergic/immunologic complaints PMFSH Past Medical History Medical History Anxiety Depression Post traumatic stress disorder Surgical History Surgical History History of laparoscopic cholecystectomy (09/13/21) Family History Family History Grandparent Diabetes mellitus Other No pertinent family history Social History Social History Social History: Surrogate medical decision maker: Ashtyn Moore (grandmother) or Marko Reyes (significant other). Code status: Full code. Smoking status: Former smoker Tobacco type: cigarettes Second hand tobacco smoke exposure: No Alcohol intake: never Substance use: never Substance use type: does not use Other substance usage details: marijuana use Last use: 2.5 years ago Living arrangements: with family Additional living arrangements comments: Lives with fianc? and 8 month old child. Additional occupation/education comments: Works for [employer]. Spiritual care concerns: No Comments At the time of my signature, I reviewed and agree with the nursing past medical, surgical, social, and family history. There is no relevant family history pertinent to the patient complaint. Exam Const: General: cooperative, healthy appearing, comfortable, no
[2023-01-29 19:08] VITALS: BP 143/70; PULSE 103; RESP 16; TEMP 37.4; O2SAT 99
== END 2023-01-29 19:26 | disposition home or self-care (01) ==
PROVIDERS: Emergency Provider Nurse Practitioner; PCP Family Medicine
DX: R52 Pain, unspecified (principal); J06.9 Acute upper respiratory infection, unspecified; Z87.891 Personal history of nicotine dependence
CPT/HCPCS: 87081; 87880; 99213; G0463

== ENCOUNTER 2023-03-07 10:53 | Emergency (ER) | payer OTHER, SELFPAY ==
[2023-03-07 11:09] VITALS: BP 139/83; PULSE 102; RESP 16; TEMP 37.6; O2SAT 100
--- NOTE | 2023-03-07 11:25 | ED.GENADULT ---
HPI - General Adult General Chief complaint: Fever Stated complaint: Fever/Fatigue Time Seen by Provider: 03/07/23 11:25 Source: patient, RN notes reviewed and old records reviewed Mode of arrival: ambulatory Limitations: no limitations History of Present Illness HPI narrative: 27-year-old female presents to the [facility] with complaints of feeling feverish and fatigued. Patient states she has had multiple episodes of diarrhea but not taken anything but ibuprofen for it. Denies any pain. Denies any urinary symptoms. Treatments prior to arrival: NSAID (Ibuprofen x1) Related Data Home Medications Medication Instructions Recorded Confirmed medroxyprogesterone 150 mg/mL 150 mg IM [id number] 06/07/21 03/07/23 intramuscular suspension cyclobenzaprine 10 mg tablet 10 mg PO DIRECTED 12/07/22 03/07/23 famotidine 40 mg tablet 40 mg PO DAILY 12/07/22 03/07/23 sertraline 25 mg tablet 25 mg PO DAILY 03/07/23 03/07/23 Allergies Allergy/AdvReac Type Severity Reaction Status Date / Time No Known Allergies Allergy Verified 03/07/23 11:20 Review of Systems Review of Systems: All systems reviewed & are unremarkable except as noted in HPI and below Constitutional: Constitutional: Reports as per HPI, Reports fatigue and Reports fever(s) (Subjective) Eyes: Eyes: Reports no additional eye complaints ENT: Reports system reviewed and no additional complaints, except as documented Cardiovascular: Cardiovascular: Reports no additional cardiovascular complaints, Denies chest pain and Denies dyspnea Respiratory: Respiratory: Reports no additional respiratory complaints, Denies chest congestion, Denies cough and Denies dyspnea Gastrointestinal: Gastrointestinal: Reports as per HPI, Denies abdominal pain, Reports diarrhea, Denies nausea and Denies vomiting Musculoskeletal: Musculoskeletal: Reports no additional musculoskeletal complaints Integumentary/Breasts: Skin/Breast: Reports system reviewed and no additional complaints, except as docu Neurologic: Reports system reviewed and no additional complaints, except as documented Psychiatric: Psychiatric: Reports no additional psychiatric complaints Allergic/Immunologic: Allergic/Immunologic: Reports no additional allergic/immunologic complaints PMFSH Past Medical History Medical History Anxiety Depression Post traumatic stress disorder Surgical History Surgical History History of laparoscopic cholecystectomy (09/13/21) Family History Family History Grandparent Diabetes mellitus Other No pertinent family history Social History Social History Social History: Surrogate medical decision maker: Ashtyn Moore (grandmother) or Marko Reyes (significant other). Code status: Full code. Smoking status: Former smoker Tobacco type: cigarettes Second hand tobacco smoke exposure: No Alcohol intake: never Substance use: never Substance use type: does not use Other substance usage details: marijuana use Last use: 2.5 years ago Living arrangements: with family Additional living arrangements comments: Lives with fianc? and 8 month old child. Additional occupation/education comments: Works for [employer]. Spiritual care concerns: No Comments At the time of my signature, I reviewed and agree with the nursing past medical, surgical, social, and family history. There is no relevant family history pertinent to the patient complaint. Exam Const: General: cooperative, healthy appearing, comfortable, no acute distress, well developed, alert and well nourished Nutritional Appearance: well nourished and obese Orientation/consciousness: patient oriented x3 Limitations: no limitations HENMT: Head: normal to inspection Ears: hearing grossl
== END 2023-03-07 11:39 | disposition home or self-care (01) ==
PROVIDERS: Emergency Provider Nurse Practitioner; PCP Family Medicine
DX: R19.7 Diarrhea, unspecified (principal); R53.83 Other fatigue; F41.9 Anxiety disorder, unspecified; F32.A Depression, unspecified; Z79.899 Other long term (current) drug therapy; Z87.891 Personal history of nicotine dependence; Z20.822 Contact with and (suspected) exposure to COVID-19
CPT/HCPCS: 87426; 87804; 99213; C9803; G0463

== ENCOUNTER 2023-04-07 12:34 | Emergency (ER) | payer BC, OTHER, SELFPAY ==
[2023-04-07 12:53] VITALS: BP 142/104; PULSE 102; RESP 16; TEMP 36.9; O2SAT 98
--- NOTE | 2023-04-07 13:16 | ED.FEMALEGU ---
HPI - Female Genitourinary General Chief complaint: Urogenital-Female Stated complaint: urinary issue Time Seen by Provider: 04/07/23 13:20 Source: patient, RN notes reviewed and old records reviewed Mode of arrival: ambulatory Limitations: no limitations History of Present Illness HPI Narrative: 27-year-old female presents to the [facility] with concerns for a UTI. Patient reports 2 days of frequency, urgency and burning. Denies abdominal pain. Denies nausea or vomiting. Denies any back pain. Denies fevers No treatment prior to arrival Onset (ago): day(s) (2) Related Data Home Medications Medication Instructions Recorded Confirmed medroxyprogesterone 150 mg/mL 150 mg IM [id number] 06/07/21 04/07/23 intramuscular suspension sertraline 25 mg tablet 25 mg PO DAILY 03/07/23 04/07/23 Allergies Allergy/AdvReac Type Severity Reaction Status Date / Time No Known Allergies Allergy Verified 04/07/23 12:35 Review of Systems Review of Systems: All systems reviewed & are unremarkable except as noted in HPI and below Constitutional: Constitutional: Reports no additional constitutional complaints Eyes: Eyes: Reports no additional eye complaints ENT: Reports system reviewed and no additional complaints, except as documented Cardiovascular: Cardiovascular: Reports no additional cardiovascular complaints, Denies chest pain and Denies dyspnea Respiratory: Respiratory: Reports no additional respiratory complaints, Denies chest congestion, Denies cough and Denies dyspnea Gastrointestinal: Gastrointestinal: Reports no additional gastrointestinal complaints, Denies abdominal pain, Denies nausea and Denies vomiting Genitourinary: Genitourinary: Reports as per HPI Musculoskeletal: Musculoskeletal: Reports no additional musculoskeletal complaints Integumentary/Breasts: Skin/Breast: Reports system reviewed and no additional complaints, except as docu Neurologic: Reports system reviewed and no additional complaints, except as documented Psychiatric: Psychiatric: Reports no additional psychiatric complaints Allergic/Immunologic: Allergic/Immunologic: Reports no additional allergic/immunologic complaints [facility] Past Medical History Medical History Anxiety Depression Post traumatic stress disorder Surgical History Surgical History History of laparoscopic cholecystectomy (09/13/21) Family History Family History Grandparent Diabetes mellitus Other No pertinent family history Social History Social History Social History: Surrogate medical decision maker: Ashtyn Moore (grandmother) or Marko Eric (significant other). Code status: Full code. Smoking status: Former smoker Tobacco type: cigarettes Second hand tobacco smoke exposure: No Alcohol intake: never Substance use: never Substance use type: does not use Other substance usage details: marijuana use Last use: 2.5 years ago Living arrangements: with family Additional living arrangements comments: Lives with fianc? and 8 month old child. Additional occupation/education comments: Works for [employer]. Spiritual care concerns: No Comments At the time of my signature, I reviewed and agree with the nursing past medical, surgical, social, and family history. There is no relevant family history pertinent to the patient complaint. Exam Const: General: cooperative, healthy appearing, comfortable, no acute distress, well developed, alert and well nourished Nutritional Appearance: well nourished and obese Orientation/consciousness: patient oriented x3 Limitations: no limitations HENMT: Head: normal to inspection Ears: hearing grossly normal bilaterally and external ears normal Face/Nose/Sinus: Normal external nose pr
[2023-04-07 13:35] VITALS: BP 138/92
== END 2023-04-07 13:35 | disposition home or self-care (01) ==
PROVIDERS: Emergency Provider Nurse Practitioner; PCP Family Medicine
DX: N39.0 Urinary tract infection, site not specified (principal); B96.20 Unspecified Escherichia coli [E. coli] as the cause of diseases classified elsewhere; F41.9 Anxiety disorder, unspecified; F32.A Depression, unspecified; Z87.891 Personal history of nicotine dependence
CPT/HCPCS: 81003; 87077; 87086; 87186; 99213; G0463

== ENCOUNTER 2023-04-13 12:26 | Outpatient (CLI) | payer BC, OTHER, SELFPAY ==
[2023-04-13 12:47] LABS: Basophils Percent Auto 0.6 % (0.2-1.2); Eosinophils Percent Auto 0.6 % (0-4.4); Hematocrit 40.9 % (37.0-47.0); Hemoglobin 12.9 g/dL (12.0-15.0); Lymphocytes Absolute Auto 1.34 K/mm3 (0.9-3.2); Lymphocytes Percent Auto 41.1 % (18.3-44.2); Mean Corpuscular HGB Conc 31.5 g/dl (32-36); Mean Corpuscular Hemoglobin 25.1 pg (26-34); Mean Corpuscular Volume 79.7 fl (80-100); Mean Platelet Volume 9.3 fl (7.4-10.4); Monocytes Absolute Auto 0.5 K/mm3 (0.1-0.6); Monocytes Percent Auto 14.1 % (2.6-8.5); Neutrophils Absolute Auto 1.4 K/mm3 (1.3-6.7); Neutrophils Percent Auto 43.6 % (45.5-73.1); Platelet Count Result 328 k/mm3 (150-375); Red Blood Count 5.13 M/mm3 (4.2-5.4); Red Cell Distribution Width 15.5 % (11.5-14.5); White Blood Count 3.3 K/mm3 (4.5-10.0)
[2023-04-13 13:06] LABS: Hemoglobin A1C 5.8 % (<5.7)
[2023-04-13 13:07] LABS: Alanine Aminotransferase 42 U/L (6-35); Albumin Level 4.2 g/dL (3.5-5.1); Alkaline Phosphatase 46 U/L (38-126); Anion Gap 8 mmol/L (8-16); Aspartate Amino Transferase 33 U/L (14-36); Bilirubin,Total 0.3 mg/dL (0.2-1.3); Blood Urea Nitrogen 11 mg/dL (7-17); Calcium 9.1 mg/dL (8.4-10.2); Carbon Dioxide 22 mmol/L (22-30); Chloride 109 mmol/L (98-107); Cholesterol 122 mg/dL (0-200); Estimated Glomerular Filt Rate > 60; Glucose 91 mg/dL (65-110); HDL Direct 34 mg/dL; Sodium 139 mmol/L (137-145); Triglycerides 85 mg/dL (<150)
[2023-04-13 13:20] LABS: LDL Cholesterol Direct 75 mg/dL
[2023-04-13 13:40] LABS: Total Triiodothyronine (T3) 1.16 NG/ML (0.97-1.69)
== END 2023-04-13 12:27 | disposition home or self-care (01) ==
LOC: ANHLAB 12:30
PROVIDERS: PCP Family Medicine; Visit Provider Family Medicine
DX: E78.5 Hyperlipidemia, unspecified (principal); I10 Essential (primary) hypertension; R73.01 Impaired fasting glucose; R53.83 Other fatigue
CPT/HCPCS: 36415; 80053; 80061; 83036; 84439; 84443; 84480; 85025

== ENCOUNTER 2023-04-14 16:28 | Emergency (ER) | payer BC, OTHER, SELFPAY ==
[2023-04-14 16:43] VITALS: BP 121/67; PULSE 101; RESP 16; TEMP 36.7; O2SAT 100
--- NOTE | 2023-04-14 17:39 | ED.GENADULT ---
HPI - General Adult General Chief complaint: Upper Respiratory Infection Stated complaint: Sore Throat/Fever Source: patient Mode of arrival: ambulatory Limitations: no limitations History of Present Illness HPI narrative: Patient presents for evaluation of sore throat and cough since yesterday. Her fiancee and child recently had influenza. She denies any fever, chills, otalgia, shortness of breath, nausea, or vomiting. She has chronic diarrhea which she attributes to IBS. She has not taken any OTC meds for her symptoms as she did not know which medication to take. She does vape. Related Data Home Medications Medication Instructions Recorded Confirmed medroxyprogesterone 150 mg/mL 150 mg IM [id number] 06/07/21 04/14/23 intramuscular suspension lisinopril 10 mg tablet 10 mg PO DAILY 04/14/23 04/14/23 Allergies Allergy/AdvReac Type Severity Reaction Status Date / Time No Known Allergies Allergy Verified 04/14/23 16:52 Review of Systems Review of Systems: CONSTITUTIONAL: Denies fever, chills, or sweats. EYES: Denies visual changes, redness, or discharge. ENT: Reports sore throat. Denies otalgia, tinnitus, hearing loss. CARDIOVASCULAR: Denies chest pain, palpitations, or edema. RESPIRATORY:Reports cough. Denies dyspnea. GASTROINTESTINAL: Denies abdominal pain, nausea, vomiting, or diarrhea. GENITOURINARY: Denies dysuria or hematuria. SKIN: Denies rash or itching. MUSCULOSKELETAL: Denies back pain, joint pain, or myalgia. NEUROLOGIC: Denies headache, numbness, dizziness, or weakness. PSYCHIATRIC: Denies anxiety or depression. [facility] Past Medical History Medical History Anxiety Depression Post traumatic stress disorder Surgical History Surgical History History of laparoscopic cholecystectomy (09/13/21) Family History Family History Grandparent Diabetes mellitus Other No pertinent family history Social History Social History Social History: Surrogate medical decision maker: Ashtyn Moore (grandmother) or Marko Eric (significant other). Code status: Full code. Smoking status: Former smoker Tobacco type: cigarettes Second hand tobacco smoke exposure: No Alcohol intake: never Substance use: never Substance use type: does not use Other substance usage details: marijuana use Last use: 2.5 years ago Living arrangements: with family Additional living arrangements comments: Lives with fianc? and 8 month old child. Additional occupation/education comments: Works for [employer]. Spiritual care concerns: No Exam Narrative: GENERAL: Well-appearing, well-nourished, and in no acute distress. HEAD: Normocephalic, atraumatic. EYES: PERRLA and EOMI. ENT: Nares clear, no rhinorrhea or epistaxis. Mucous membranes moist. Oropharynx without tonsillar hypertrophy exudate or other lesions. Bilateral tympanic membranes are erythematous and bulging NECK: Supple. No adenopathy or masses. No carotid bruits or JVD CHEST: Clear to auscultation. No respiratory distress. No wheezes rales or rhonchi HEART: Regular rate and rhythm. No murmur heard. Normal peripheral pulses. ABDOMEN: Soft, nontender, nondistended, normal active bowel sounds. EXTREMITIES: Normal range of motion. No edema. SKIN: Warm, dry, no rash. NEURO: No focal deficits. Alert and oriented x3. PSYCH: Normal mood and affect. Course Course Emergency Course: This is a 27-year-old female who presented for evaluation of sore throat and cough. Strep, COVID, influenza were all negative. She has evidence of otitis media on exam. Will tx with aumentin. Increase hydration. OTC meds for symptom management. Follow up with primary provider. Go to the ER for worsening symp
== END 2023-04-14 17:40 | disposition home or self-care (01) ==
PROVIDERS: Emergency Provider Nurse Practitioner; PCP Family Medicine
DX: H66.93 Otitis media, unspecified, bilateral (principal); Z20.822 Contact with and (suspected) exposure to COVID-19; F17.200 Nicotine dependence, unspecified, uncomplicated
CPT/HCPCS: 87081; 87426; 87804; 87880; 99213; G0463

== ENCOUNTER 2023-05-01 09:39 | Emergency (ER) | payer BC, OTHER, SELFPAY ==
[2023-05-01 09:54] VITALS: BP 150/86; PULSE 95; RESP 20; TEMP 37; O2SAT 100
--- NOTE | 2023-05-01 09:56 | ED.GENADULT ---
HPI - General Adult General Chief complaint: Upper Respiratory Infection Stated complaint: Sinus/Sore Throat Source: patient, RN notes reviewed and old records reviewed Mode of arrival: ambulatory Limitations: no limitations History of Present Illness HPI narrative: 27-year-old female presents to [facility] with complaints sore throat that started last p.m.. Today has slight cough. Patient denies any other symptoms patient has not taken anything for symptoms. Related Data Home Medications Medication Instructions Recorded Confirmed No Home Medications 05/01/23 05/01/23 Allergies Allergy/AdvReac Type Severity Reaction Status Date / Time No Known Allergies Allergy Verified 05/01/23 09:50 Review of Systems Constitutional: Constitutional: Reports no additional constitutional complaints, Denies body ache(s), Denies chills, Denies fatigue, Denies fever(s) and Denies headache(s) Eyes: Eyes: Reports no additional eye complaints and Denies blurry vision ENT: Reports system reviewed and no additional complaints, except as documented, Denies vertigo, Denies dizziness, Denies ear discharge, Denies otalgia, Denies facial pain, Denies headache(s), Denies nasal congestion, Denies nasal discharge, Denies sinus pain, Denies sinus pressure and Reports sore throat Cardiovascular: Cardiovascular: Reports no additional cardiovascular complaints, Denies chest pain, Denies chest pain at rest, Denies rapid heart rate and Denies dyspnea Respiratory: Respiratory: Reports no additional respiratory complaints, Denies chest congestion, Reports cough, Denies pain on inspiration, Denies pain with cough and Denies dyspnea Gastrointestinal: Gastrointestinal: Denies abdominal pain, Denies diarrhea, Denies nausea and Denies vomiting Integumentary/Breasts: Skin/Breast: Denies rash Neurologic: Reports system reviewed and no additional complaints, except as documented, Denies vertigo, Denies dizziness and Denies headache(s) Endocrine: Endocrine: Denies fatigue PMFSH Past Medical History Medical History Anxiety Depression Post traumatic stress disorder Surgical History Surgical History History of laparoscopic cholecystectomy (09/13/21) Family History Family History Grandparent Diabetes mellitus Other No pertinent family history Social History Social History Social History: Surrogate medical decision maker: Ashtyn Moore (grandmother) or Marko Reyes (significant other). Code status: Full code. Smoking status: Former smoker Tobacco type: cigarettes Second hand tobacco smoke exposure: No Alcohol intake: never Substance use: never Substance use type: does not use Other substance usage details: marijuana use Last use: 2.5 years ago Living arrangements: with family Additional living arrangements comments: Lives with fianc? and 8 month old child. Additional occupation/education comments: Works for [employer]. Spiritual care concerns: No Comments At the time of my signature, I reviewed and agree with the nursing past medical, surgical, social, and family history. There is no relevant family history pertinent to the patient complaint. Exam Const: General: cooperative, healthy appearing, no acute distress and well nourished Nutritional Appearance: well nourished Orientation/consciousness: patient oriented x3 Limitations: no limitations HENMT: Head: normal to inspection and normocephalic Ears: external ears normal, TM's normal bilaterally, EAC's normal and mastoids normal Face/Nose/Sinus: No nasal discharge present, normal facial exam and sinuses nontender Face and sinus: normal facial exam Mouth: Yes Normal oral and palatal mucosa present, Yes oropharynx normal and Yes moist m
== END 2023-05-01 10:15 | disposition home or self-care (01) ==
PROVIDERS: Emergency Provider Registered Nurse; PCP Family Medicine
DX: J02.9 Acute pharyngitis, unspecified (principal); Z20.822 Contact with and (suspected) exposure to COVID-19; Z87.891 Personal history of nicotine dependence
CPT/HCPCS: 87081; 87426; 87804; 87880; 99213; G0463

== ENCOUNTER 2023-07-05 10:10 | Emergency (ER) | payer BC, SELFPAY ==
[2023-07-05 10:20] VITALS: BP 128/70; PULSE 87; RESP 18; TEMP 36.6; O2SAT 100
--- NOTE | 2023-07-05 10:49 | ED.EAR ---
HPI - Ear Problem General Chief complaint: Ear Stated complaint: Ears Irritation/Sore Throat Time Seen by Provider: 07/05/23 10:51 Source: patient Mode of arrival: ambulatory Limitations: no limitations History of Present Illness HPI Narrative: 27-year-old female presents with complaint of nasal congestion, postnasal drainage, sore throat, pressure in pain to bilateral ears over the past 2-3 days. Afebrile. Not taking any [id number] medications to treat symptoms. States woke up this morning and head felt like a balloon . Denies cough All systems reviewed and negative except as noted above. Related Data Home Medications Medication Instructions Recorded Confirmed lisinopril 20 mg tablet 20 mg PO DAILY 07/05/23 07/05/23 Allergies Allergy/AdvReac Type Severity Reaction Status Date / Time No Known Allergies Allergy Verified 07/05/23 10:32 Review of Systems Review of Systems: CONSTITUTIONAL: Denies fever, chills, or sweats. reports fatigue. EYES: Denies visual changes, redness, or discharge. ENT: reports rhinorrhea, congestion, sore throat, and bilateral otalgia. CARDIOVASCULAR: Denies chest pain, palpitations, or edema. RESPIRATORY: Denies cough or dyspnea. GASTROINTESTINAL: Denies abdominal pain, nausea, vomiting, or diarrhea. GENITOURINARY: Denies dysuria or hematuria. SKIN: Denies rash or itching. MUSCULOSKELETAL: Denies back pain, joint pain, or myalgia. NEUROLOGIC: Reports headache. Denies numbness, or weakness. PSYCHIATRIC: Denies anxiety or depression. All other systems reviewed are negative, except as documented in HPI. [facility] Past Medical History Medical History Anxiety Depression Post traumatic stress disorder Surgical History Surgical History History of laparoscopic cholecystectomy (09/13/21) Family History Family History Grandparent Diabetes mellitus Other No pertinent family history Social History Social History Social History: Surrogate medical decision maker: Ashtyn Moore (grandmother) or Marko Callier (significant other). Code status: Full code. Smoking status: Former smoker Tobacco type: cigarettes Second hand tobacco smoke exposure: No Alcohol intake: never Substance use: never Substance use type: does not use Other substance usage details: marijuana use Last use: 2.5 years ago Living arrangements: with family Additional living arrangements comments: Lives with shanna and 8 month old child. Additional occupation/education comments: Works for [employer]. Spiritual care concerns: No Comments At time of signature, agree with nursing past medical, surgical, social and family history. There is no relevant family history pertinent to the presenting complaint. Exam Narrative: GENERAL: This is a well-nourished, well-developed patient, in no apparent distress. HEAD: normocephalic, atraumatic. EYES: PERRL. Sclera clear/white. Vision is grossly intact. EARS: External ears normal, auditory canals clear and without drainage, Fluid and erythema to bilateral TMs without perforation. Hearing grossly intact. NOSE: External nose normal with mild congestion, clear nasal drainage with erythema and swelling to both nares. THROAT: Mucous membranes moist, Erythema with postnasal drainage. Mild swelling without exudates. NECK: Neck supple, non-tender without lymphadenopathy, masses or thyromegaly. CARDIOVASCULAR: Regular rate and rhythm without murmurs, gallops, or rubs. RESPIRATORY: Clear to auscultation. Breath sounds equal bilaterally. No wheezes, rales, or rhonchi. SKIN: warm, Dry, intact with no suspicious lesions or rash, good texture and turgor. NEURO: awake, alert, and oriented to person, place and time. T
== END 2023-07-05 11:05 | disposition home or self-care (01) ==
PROVIDERS: Emergency Provider Nurse Practitioner Family; PCP Family Medicine
DX: J01.90 Acute sinusitis, unspecified (principal); H65.03 Acute serous otitis media, bilateral; Z87.891 Personal history of nicotine dependence
CPT/HCPCS: 99213; G0463

== ENCOUNTER 2023-10-12 11:01 | Emergency (ER) | payer BC, SELFPAY ==
[2023-10-12 11:10] VITALS: BP 138/79; PULSE 84; RESP 20; TEMP 36.9; O2SAT 100
--- NOTE | 2023-10-12 11:21 | ED.EYEPROB ---
HPI - Eye Problem General Chief complaint: Eye Problems Stated complaint: Eyes Irritation Time Seen by Provider: 10/12/23 11:21 Source: patient Mode of arrival: ambulatory Limitations: no limitations History of Present Illness HPI Narrative: 27 y/o female presents with complaints of left eye irritation and pain, onset today. She woke up this morning with left eye irritation and has tried Visine eye drops and rinsing with tap water without relief. She has not been outside doing yardwork and denies any hazardous occupational exposures. She denies fevers, rhinorrhea, congestion, visual changes, photophobia, foreign body, eye swelling or discharge. chief complaint: eye pain Related Data Home Medications Medication Instructions Recorded Confirmed lisinopril 20 mg tablet 20 mg PO DAILY 07/05/23 10/12/23 Allergies Allergy/AdvReac Type Severity Reaction Status Date / Time No Known Allergies Allergy Verified 10/12/23 11:08 Review of Systems Review of Systems: CONSTITUTIONAL: Denies body aches, fever, chills EYES:Endorses left eye irritation and pain. Denies visual changes, photophobia ENT: Denies rhinorrhea, congestion, sore throat, or otalgia. CARDIOVASCULAR: Denies chest pain, palpitations RESPIRATORY: Denies cough or dyspnea. SKIN: Denies rash, itching, or wounds. MUSCULOSKELETAL: Denies back pain, joint pain, or myalgia. NEUROLOGIC: Denies headache, numbness, tingling, or weakness. All systems reviewed & are unremarkable except as noted in HPI and below PMFSH Past Medical History Medical History Anxiety Depression Post traumatic stress disorder Surgical History Surgical History History of laparoscopic cholecystectomy (09/13/21) Family History Family History Grandparent Diabetes mellitus Other No pertinent family history Social History Social History Social History: Surrogate medical decision maker: Ashtyn Moore (grandmother) or Marko Reyes (significant other). Code status: Full code. Smoking status: Former smoker Tobacco type: cigarettes Second hand tobacco smoke exposure: No Alcohol intake: never Substance use: never Substance use type: does not use Other substance usage details: marijuana use Last use: 2.5 years ago Living arrangements: with family Additional living arrangements comments: Lives with matias? and 8 month old child. Additional occupation/education comments: Works for [employer]. Spiritual care concerns: No Comments At time of signature, I have reviewed and agree with nursing past medical, surgical, social and family history unless otherwise noted. Please see nursing chart for further information. There is no relevant family history pertinent to the presenting complaint Exam Narrative: GENERAL: Well-appearing. No apparent distress. HEAD: Normocephalic, atraumatic. EYES: Conjunctivae without injection. No eye lid swelling or redness. No corneal abrasion seen with Shankar lamp. EOMI. SKIN: Warm, dry, no rash. Normal skin turgor. NEURO: No focal deficits. Alert and oriented x3 PSYCH: Normal affect. Course Course Emergency Course: Patient is aware of diagnosis, understands and agrees to treatment plan. Anticipatory guidance given. Patient agrees to follow-up as directed and is aware of reasons to seek care at the emergency department. Portions of this record may have been created with voice recognition software Level of Care: Express Care Visit Vital Signs Vital signs: Vital Signs Temperature 98.5 F 10/12/23 11:10 Pulse Rate 84 10/12/23 11:10 Respiratory Rate 20 10/12/23 11:10 Blood Pressure 138/79 10/12/23 11:10 Pulse Oximetry 100 10/12/23 11:10 Oxygen Delivery Room Air
[2023-10-12] MEDS: DACRIOSE EYE IRRIGATION 118 ML BOTTLE 20 ML LEFT EYE (11:31)
[2023-10-12] MEDS: TETRACAINE HCL 0.5% OPHTH SOLN 4 ML BTL 1 DROP LEFT EYE (11:31)
[2023-10-12] MEDS: FLUORESCEIN SOD 1 MG/STRIP LEFT EYE (11:31)
== END 2023-10-12 11:53 | disposition home or self-care (01) ==
PROVIDERS: Emergency Provider Nurse Practitioner Family; PCP Family Medicine
DX: H57.12 Ocular pain, left eye (principal); Z87.891 Personal history of nicotine dependence
CPT/HCPCS: 99213; A9270; G0463

== ENCOUNTER 2023-10-27 08:57 | Emergency (ER) | payer BC, SELFPAY ==
[2023-10-27 09:07] VITALS: BP 151/85; PULSE 79; RESP 20; TEMP 36.5; O2SAT 98
--- NOTE | 2023-10-27 09:07 | ED.FEMALEGU ---
HPI - Female Genitourinary General Chief complaint: Urogenital-Female Stated complaint: urinary issue Time Seen by Provider: 10/27/23 09:07 Source: patient Mode of arrival: ambulatory Limitations: no limitations History of Present Illness HPI Narrative: 27-year-old female presents with complaint of urinary frequency, urgency, suprapubic pressure. symptoms started this morning. Denies . Patient reports history of UTI approximately every few months. No back pain today. All systems reviewed and negative except as noted above. Related Data Home Medications Medication Instructions Recorded Confirmed lisinopril 20 mg tablet 20 mg PO DAILY 07/05/23 10/27/23 Allergies Allergy/AdvReac Type Severity Reaction Status Date / Time No Known Allergies Allergy Verified 10/27/23 09:10 Review of Systems Review of Systems: CONSTITUTIONAL: Denies fever, chills, or sweats. EYES: Denies visual changes, redness, or discharge. ENT: Denies rhinorrhea, congestion, sore throat, or otalgia. CARDIOVASCULAR: Denies chest pain, palpitations, or edema. RESPIRATORY: Denies cough or dyspnea. GASTROINTESTINAL: Denies abdominal pain, nausea, vomiting, or diarrhea. GENITOURINARY: Reports dysuria, frequency, urgency. Denies hematuria. SKIN: Denies rash or itching. MUSCULOSKELETAL: Denies back pain, joint pain, or myalgia. NEUROLOGIC: Denies headache, numbness, or weakness. PSYCHIATRIC: Denies anxiety or depression. All other systems reviewed are negative, except as documented in HPI. [facility] Past Medical History Medical History Anxiety Depression Post traumatic stress disorder Surgical History Surgical History History of laparoscopic cholecystectomy (09/13/21) Family History Family History Grandparent Diabetes mellitus Other No pertinent family history Social History Social History Social History: Surrogate medical decision maker: Ashtyn Moore (grandmother) or Marko Reyes (significant other). Code status: Full code. Smoking status: Former smoker Tobacco type: cigarettes Second hand tobacco smoke exposure: No Alcohol intake: never Substance use: never Substance use type: does not use Other substance usage details: marijuana use Last use: 2.5 years ago Living arrangements: with family Additional living arrangements comments: Lives with shanna and 8 month old child. Additional occupation/education comments: Works for [employer]. Spiritual care concerns: No Comments At time of signature, agree with nursing past medical, surgical, social and family history. There is no relevant family history pertinent to the presenting complaint. Exam Narrative: GENERAL: This is a well-nourished, well-developed patient, in no apparent distress. HEAD: normocephalic, atraumatic. EYES: PERRL. Sclera clear/white. Vision is grossly intact. EARS: External ears normal NOSE: External nose normal NECK: Neck supple, non-tender without lymphadenopathy, masses or thyromegaly. CARDIOVASCULAR: Regular rate and rhythm without murmurs, gallops, or rubs. RESPIRATORY: Clear to auscultation. Breath sounds equal bilaterally. No wheezes, rales, or rhonchi. SKIN: warm, Dry, intact with no suspicious lesions or rash, good texture and turgor. NEURO: awake, alert, and oriented to person, place and time. There were no obvious focal neurologic abnormalities. EXTREMITIES: No joint tenderness, effusion, or edema noted. Course Course Level of Care: Express Care Visit Vital Signs Vital signs: Vital Signs Temperature 36.5 C 10/27/23 09:07 Pulse Rate 79 10/27/23 09:07 Respiratory Rate 20 10/27/23 09:07 Blood Pressure 151/85 H 10/27/23 09:07 Pulse Oximetry 98 10/27/23 09
[2023-10-27 09:20] LABS: EDUAAPPEAR Cloudy; EDUABILI Negative; EDUABLOOD Trace; EDUACOLOR1 Yellow; EDUAGLUCOSE Negative; EDUAKETONE Negative; EDUALEUKO Trace; EDUANITRATE Negative; EDUAPROTEIN Negative; EDUAUROBILI 0.2
== END 2023-10-27 09:30 | disposition home or self-care (01) ==
PROVIDERS: Emergency Provider Nurse Practitioner Family; PCP Family Medicine
DX: N39.0 Urinary tract infection, site not specified (principal); Z87.891 Personal history of nicotine dependence
CPT/HCPCS: 81003; 87086; 87088; 99213; G0463

== ENCOUNTER 2023-11-24 16:15 | Emergency (ER) | payer BC, SELFPAY ==
[2023-11-24 16:22] VITALS: BP 155/83; PULSE 89; RESP 19; TEMP 37.2; O2SAT 100
--- NOTE | 2023-11-24 17:19 | ED.SKABFB ---
HPI - Skin/Abscess/Foreign Bdy General Chief complaint: Skin/Abscess/Foreign Body Stated complaint: Left Hand Thumb Pain Source: patient, RN notes reviewed and old records reviewed Mode of arrival: ambulatory Limitations: no limitations History of Present Illness HPI narrative: Left-hand dominant patient with history of nail surgery to the left thumb presents with pain and swelling near where left thumbnail was prior to surgery. She reports surgery was fall of 2022, has not had any complications until now. She now has swelling that resemble that of a paronychia, and similar pain. She denies any injury or trauma. She denies any active drainage. She voices no other concerns or complaints at this time. She does report that she has been unable to call her surgeon because he is no longer employed at the office that she saw him at and she does not know how to contact him Related Data Home Medications Medication Instructions Recorded Confirmed lisinopril 20 mg tablet 20 mg PO DAILY 07/05/23 11/24/23 Allergies Allergy/AdvReac Type Severity Reaction Status Date / Time No Known Allergies Allergy Verified 11/24/23 16:33 Review of Systems Review of Systems: All systems reviewed & are unremarkable except as noted in HPI and below Constitutional: Constitutional: Reports no additional constitutional complaints ENT: Reports system reviewed and no additional complaints, except as documented Cardiovascular: Cardiovascular: Reports no additional cardiovascular complaints Respiratory: Respiratory: Reports no additional respiratory complaints Gastrointestinal: Gastrointestinal: Reports no additional gastrointestinal complaints Musculoskeletal: Musculoskeletal: Reports no additional musculoskeletal complaints and Reports as per HPI Integumentary/Breasts: Skin/Breast: Reports system reviewed and no additional complaints, except as docu and Reports as per HPI [facility] Past Medical History Medical History Anxiety Depression Post traumatic stress disorder Surgical History Surgical History History of laparoscopic cholecystectomy (09/13/21) Family History Family History Grandparent Diabetes mellitus Other No pertinent family history Social History Social History Social History: Surrogate medical decision maker: Ashtyn Moore (grandmother) or Marko Reyes (significant other). Code status: Full code. Smoking status: Former smoker Tobacco type: cigarettes Second hand tobacco smoke exposure: No Alcohol intake: never Substance use: never Substance use type: does not use Other substance usage details: marijuana use Last use: 2.5 years ago Living arrangements: with family Additional living arrangements comments: Lives with matias? and 8 month old child. Additional occupation/education comments: Works for [employer]. Spiritual care concerns: No Comments At the time of my signature, I reviewed and agree with the nursing past medical, surgical, social, and family history. There is no relevant family history pertinent to the patient complaint. Exam Const: General: cooperative, no acute distress, alert and awake Orientation/consciousness: oriented to person, oriented to place and oriented to time HENMT: Head: normal to inspection Resp: Effort & Inspection: normal respiratory effort and able to speak in complete sentences Auscultation: clear to auscultation bilaterally, no crackles, no rales, no rhonchi and no wheezes Cardio: Palpation: normal PMI Rate: regular rate Rhythm: regular rhythm Heart sounds: S1 normal heart sound present and S2 normal heart sound present Skin: Nails: other (Left thumb nail is missing, there is a fluctuant near cuticle) Neuro: General: orien
[2023-11-24] MEDS: LIDOCAINE HCL 1% LOCAL INJ 2 ML AMPUL 4 ML INFILTRATE (17:37)
== END 2023-11-24 18:10 | disposition home or self-care (01) ==
PROVIDERS: Emergency Provider Nurse Practitioner Family; PCP Family Medicine
DX: L02.512 Cutaneous abscess of left hand (principal); Z87.891 Personal history of nicotine dependence
CPT/HCPCS: 26010; 87070; 87205; 99213; G0463

== ENCOUNTER 2023-11-26 10:53 | Outpatient (CLI) | payer BC, SELFPAY ==
[2023-11-26 11:44] LABS: Basophils Absolute Auto 0.1 K/mm3 (0.0-0.1); Eosinophils Absolute Auto 0.1 K/mm3 (0-0.3); Eosinophils Percent Auto 1.7 % (0-4.4); Hematocrit 40.9 % (37.0-47.0); Hemoglobin 12.9 g/dL (12.0-15.0); Immature Granulocyte Absolute 0.01 K/mm3 (0.00-0.031); Immature Granulocyte Percent A 0.2 % (0-0.5); Lymphocytes Absolute Auto 1.73 K/mm3 (0.9-3.2); Lymphocytes Percent Auto 33.6 % (18.3-44.2); Mean Corpuscular HGB Conc 31.5 g/dl (32-36); Mean Corpuscular Hemoglobin 25.6 pg (26-34); Mean Corpuscular Volume 81.3 fl (80-100); Mean Platelet Volume 9.7 fl (7.4-10.4); Monocytes Absolute Auto 0.4 K/mm3 (0.1-0.6); Monocytes Percent Auto 7.2 % (2.6-8.5); Neutrophils Absolute Auto 2.9 K/mm3 (1.3-6.7); Neutrophils Percent Auto 56.3 % (45.5-73.1); Platelet Count Result 362 k/mm3 (150-375); Red Blood Count 5.03 M/mm3 (4.2-5.4); Red Cell Distribution Width 15.7 % (11.5-14.5); White Blood Count 5.2 K/mm3 (4.5-10.0)
[2023-11-26 12:01] LABS: Alanine Aminotransferase 24 U/L (6-35); Albumin Level 4.5 g/dL (3.5-5.1); Alkaline Phosphatase 38 U/L (38-126); Anion Gap 11 mmol/L (4-12); Aspartate Amino Transferase 23 U/L (14-36); Bilirubin,Total 0.3 mg/dL (0.2-1.3); Blood Urea Nitrogen 7 mg/dL (7-17); Calcium 9.2 mg/dL (8.4-10.2); Carbon Dioxide 22 mmol/L (22-30); Chloride 106 mmol/L (98-107); Cholesterol 140 mg/dL (0-200); Estimated Glomerular Filt Rate > 60; Glucose 90 mg/dL (65-110); HDL Direct 45 mg/dL; Potassium 4.1 mmol/L (3.4-5.0); Sodium 139 mmol/L (137-145); Triglycerides 84 mg/dL (<150)
[2023-11-26 12:12] LABS: LDL Cholesterol Direct 81 mg/dL
[2023-11-26 12:29] LABS: Free T4 Free Thyroxine 0.95 ng/mL (0.78-2.19)
[2023-11-26 12:31] LABS: Total Triiodothyronine (T3) 1.35 NG/ML (0.97-1.69)
[2023-11-26 13:22] LABS: Hemoglobin A1C 5.9 % (<5.7)
== END 2023-11-26 10:54 | disposition home or self-care (01) ==
LOC: ANHLAB 10:56
PROVIDERS: PCP Family Medicine; Visit Provider Registered Nurse
DX: I10 Essential (primary) hypertension (principal); R73.01 Impaired fasting glucose; E78.5 Hyperlipidemia, unspecified; R53.83 Other fatigue
CPT/HCPCS: 36415; 80053; 80061; 83036; 84439; 84443; 84480; 85025

== ENCOUNTER 2024-03-19 13:06 | Emergency (ER) | payer OTHER, SELFPAY ==
[2024-03-19 13:11] VITALS: BP 141/80; PULSE 89; RESP 20; TEMP 36.6; O2SAT 100
--- NOTE | 2024-03-19 13:11 | ED.URI ---
HPI - URI/Sore Throat General Chief Complaint: Nausea/Vomiting/Diarrhea Stated Complaint: Sinus/Diarrhea Time Seen by Provider: 03/19/24 13:45 Source: patient, RN notes reviewed and old records reviewed Mode of arrival: ambulatory Limitations: no limitations History of Present Illness HPI Narrative: 28-year-old female presents to the [facility] with complaints of sinus drainage, sore throat and cough for 3 weeks. Started with some abdominal cramping and diarrhea today. Denies fevers. Did take a couple of doses of [place] Cough and cold. Onset (ago): week(s) (3) Related Data Home Medications ?Medication ?Instructions ?Recorded ?Confirmed ?Last Taken ?Type lisinopril 20 mg tablet 20 mg PO DAILY 07/05/23 11/24/23 Unknown History Allergies Allergy/AdvReac Type Severity Reaction Status Date / Time No Known Allergies Allergy Verified 03/19/24 13:25 Review of Systems Review of Systems: All systems reviewed & are unremarkable except as noted in HPI and below Constitutional: Constitutional: Reports no additional constitutional complaints ENT: Reports as per HPI, Reports sinus pressure and Reports sore throat Cardiovascular: Cardiovascular: Reports no additional cardiovascular complaints, Denies chest pain and Denies dyspnea Respiratory: Respiratory: Reports as per HPI, Denies chest congestion, Reports cough and Denies dyspnea Gastrointestinal: Gastrointestinal: Reports as per HPI Musculoskeletal: Musculoskeletal: Reports no additional musculoskeletal complaints Integumentary/Breasts: Skin/Breast: Reports system reviewed and no additional complaints, except as docu PMFSH Past Medical History Medical History Post traumatic stress disorder Depression Anxiety Surgical History Surgical History History of laparoscopic cholecystectomy (09/13/21) Family History Family History Grandparent Diabetes mellitus Other No pertinent family history Social History Social History Social History: Surrogate medical decision maker: Ashtyn Moore (grandmother) or Marko Reyes (significant other). Code status: Full code. Smoking status: Former smoker Tobacco type: cigarettes Second hand tobacco smoke exposure: No Alcohol intake: never Substance use: never Substance use type: does not use Other substance usage details: marijuana use Last use: 2.5 years ago Living arrangements: with family Additional living arrangements comments: Lives with shanna and 8 month old child. Additional occupation/education comments: Works for [employer]. Spiritual care concerns: No Comments At the time of my signature, I reviewed and agree with the nursing past medical, surgical, social, and family history. There is no relevant family history pertinent to the patient complaint. Exam Const: General: cooperative, healthy appearing, comfortable, no acute distress, well developed, alert and well nourished Nutritional Appearance: well nourished and obese Orientation/consciousness: patient oriented x3 Limitations: no limitations HENMT: Head: normal to inspection Ears: hearing grossly normal bilaterally, external ears normal, TM's normal bilaterally, EAC's normal, mastoids normal and no periauricular adenopathy Mouth: Yes Normal oral and palatal mucosa present, Yes lip normal, Yes tongue normal and Yes moist mucous membranes Throat: posterior oropharynx normal, uvula midline, postnasal drainage and no uvular edema Eyes: General: appearance normal, both eyes and all related structures Alignment and Position: alignment normal Neck: Neck: normal visual inspection, full ROM, no lymphadenopathy and no meningeal signs Chest: Chest palpation & inspection: normal inspection of the chest Resp: Effort & Inspection: normal respiratory effort and able to speak in complete sentences Auscultation: clear to auscultation bilaterally, no crackles, no rales, no rhonchi and no wheezes Cardio: Rate: regular rate Skin: General skin exam: normal color and no rashes or lesions noted Neuro: General: patient oriented x3, gait normal, moves all extremities and no meningeal signs Cognition (Neuro): normal cognition Speech: normal speech Gait exam (Neuro): Normal gait present Extrem: General: normal to inspection, full ROM, capillary refill normal and normal gait Psych: Appearance: grossly normal and well kempt Mental Status: mental status grossly normal Speech and movement: Normal speech and movement present and Clear speech present Affect: normal affect Attitude: cooperative Course Course Level of Care: Express Care Visit Vital Signs Vital signs: Vital Signs Temperature 97.9 F 03/19/24 13:11 Pulse Rate 89 03/19/24 13:11 Respiratory Rate 20 03/19/24 13:11 Blood Pressure 141/80 H 03/19/24 13:11 Pulse Oximetry 100 03/19/24 13:11 Oxygen Delivery Room Air 03/19/24 13:11 Temperature 97.9 F 03/19/24 13:11 Pulse Rate 89 03/19/24 13:11 Respiratory Rate 20 03/19/24 13:11 Blood Pressure 141/80 H 03/19/24 13:11 Pulse Oximetry 100 03/19/24 13:11 Oxygen Delivery Room Air 03/19/24 13:11 Reviewed MDM - URI/Sore Throat MDM Narrative Medical decision making narrative: Patient sitting comfortably in exam room. Nontoxic, vitals stable. Patient with 3 week history of sore throat, sinus congestion cough. Started with diarrhea today with abdominal cramping. Patient in no acute distress. Patient appropriate for outpatient treatment with doxycycline and prednisone for the sinus and cough for 3 weeks. Encourage patient for hydration and [id number] products for the loose stools. Patient appropriate for outpatient treatment and follow-up Discharge instructions reviewed with patient, as well as provided in writing per nursing staff. The instructions also include specific and strict return/GO TO THE ER as well as f/u information. All questions have been answered, and the patient deny any further questions with discharge and discharge plan. Some parts of this dictation were generated by voice recognition software and may contain typographical and/or grammatical inaccuracies. Differential Diagnosis Differential diagnosis: Likely upper respiratory infection, otitis media, sinusitis, viral infection, bronchitis, influenza and pharyngitis Critical Care Time Critical Care Time Critical Care Time: No Discharge Plan Discharge Clinical Impression: Sinusitis, Bronchitis Patient Disposition: Home, Self-Care Condition: Stable Instructions: Antibiotic Form, Sinusitis (ED), Acute Bronchitis (ED) Additional Instructions: It is very important to treat your symptoms. Drink plenty of water, Gatorade, Pedialyte, ice pops or Jell-O. -Alternate Tylenol and Motrin per package directions for fever or pain. You can alternate every 4 hours -Antihistamine medication such as Zyrtec/Claritin/Jennifer during the day can help improve symptoms. -doing daily nasal irrigations can help relieve pressure your sinuses. Things like a Neti pot -Use Flonase twice a day for 5 days then daily to help reduce the inflammation and dry up your sinuses. -You can also use Mucinex. Be sure to drink plenty of water with this medication at least 8 ounces with every dose and it is important to drink 8 to 10 glasses of water per day. Water is a natural decongestant -Eat and drink things that are easy to swallow, like tea or soup, or popsicles. -Oral rinses such as: Salt water gargles and/or may use topical anesthetic (eg. Chloraseptic spray) or lozenges to relieve dryness or throat pain). -Frequent hand washing or hand manager gyn is one of the best ways to prevent spread of infection. -Using a vaporizer or humidifier at night will also help thin secretions and help with coughing up phlegm. -Follow up with primary care provider in 7-10 days if condition is not improving - For new or worsening symptoms go directly to the nearest ER Patient Language: Citizen [place] Prescriptions: New prednisone 20 mg tablet See Rx Instructions .Route .COMPLEX Qty: 9 0RF Rx Instructions: Take 40 mg daily for 3 days, 20 mg daily for 3 days doxycycline monohydrate 100 mg tablet 100 mg PO BID Qty: 14 0RF No Action lisinopril 20 mg Tablet 20 mg PO DAILY Follow-up/Referrals: Kal Delgado MD [Primary Care Provider] - 1 Week (express care follow up ) Stand Alone Forms: Work/School Release IP Time of Disposition: 13:52
== END 2024-03-19 14:00 | disposition home or self-care (01) ==
PROVIDERS: Emergency Provider Nurse Practitioner; PCP Family Medicine
DX: J32.9 Chronic sinusitis, unspecified (principal); J40 Bronchitis, not specified as acute or chronic; Z87.891 Personal history of nicotine dependence
CPT/HCPCS: 99213; G0463

== ENCOUNTER 2024-03-22 16:27 | Emergency (ER) | payer OTHER, SELFPAY ==
--- NOTE | 2024-03-22 16:29 | ED.FEMALEGU ---
HPI - Female Genitourinary General Chief complaint: Urogenital-Female Stated complaint: urinary issue Time Seen by Provider: 03/22/24 16:29 Source: patient Mode of arrival: ambulatory Limitations: no limitations History of Present Illness HPI Narrative: Sandra is a 28-year-old female patient presenting to the clinic today with complaints of possible UTI. She reports since last night she developed some burning with urination and vaginal irritation/burning. Is currently taking antibiotics for a sinusitis bronchitis. States she has had a yeast infection before when taking antibiotics. Denies any vaginal discharge. Denies any concern for . Related Data Home Medications ?Medication ?Instructions ?Recorded ?Confirmed ?Last Taken ?Type lisinopril 20 mg tablet 20 mg PO DAILY 07/05/23 11/24/23 Unknown History Allergies Allergy/AdvReac Type Severity Reaction Status Date / Time No Known Allergies Allergy Verified 03/22/24 16:29 Review of Systems Review of Systems: Pertinent positives per HPI. Patient denies any fever, chills, rash, headache, visual changes, dizziness, cough, runny nose, sore throat, shortness of breath, chest pain, palpitations, nausea, vomiting, diarrhea, constipation, abdominal pain PMFSH Past Medical History Medical History Post traumatic stress disorder Depression Anxiety Surgical History Surgical History History of laparoscopic cholecystectomy (09/13/21) Family History Family History Grandparent Diabetes mellitus Other No pertinent family history Social History Social History Social History: Surrogate medical decision maker: Ashtyn Moore (grandmother) or Marko Reyes (significant other). Code status: Full code. Smoking status: Former smoker Tobacco type: cigarettes Second hand tobacco smoke exposure: No Alcohol intake: never Substance use: never Substance use type: does not use Other substance usage details: marijuana use Last use: 2.5 years ago Living arrangements: with family Additional living arrangements comments: Lives with fianc? and 8 month old child. Additional occupation/education comments: Works for [employer]. Spiritual care concerns: No Comments At the time of my signature, I reviewed and agree with the nursing past medical, surgical, social, and family history. There is no relevant family history pertinent to the patient complaint. Exam Narrative: General: Well-developed, morbidly obese, in no apparent distress. Head: Normocephalic, atraumatic. Cardio: Regular rate and rhythm, s1 and s2 normal, no murmur appreciated. Resp: Clear to auscultation bilaterally, no rhonchi, rales, wheezing or rubs. Abdomen: Soft, pliable, bowel sounds present in all quadrants, non-tender to palpation, no organomegly, no CVAT tenderness. : Deferred Course Course Emergency Course: Portions of this record may have been created with voice recognition software. Level of Care: Express Care Visit Vital Signs Vital signs: Vital Signs Temperature 36.2 C L 03/22/24 16:45 Pulse Rate 93 03/22/24 16:45 Respiratory Rate 16 03/22/24 16:45 Blood Pressure 140/80 03/22/24 16:45 Pulse Oximetry 99 03/22/24 16:45 Oxygen Delivery Room Air 03/22/24 16:45 Temperature 36.2 C L 03/22/24 16:45 Pulse Rate 93 03/22/24 16:45 Respiratory Rate 16 03/22/24 16:45 Blood Pressure 140/80 03/22/24 16:45 Pulse Oximetry 99 03/22/24 16:45 Oxygen Delivery Room Air 03/22/24 16:45 Vital signs reviewed MDM - Female Genitourinary MDM Narrative Medical decision making narrative: At the time of visit patient is resting comfortably on the exam table. Patient appears to be nontoxic. Labs: Urinalysis is negative for any sign of infection, blood, or protein. Plan: I suspect patient likely has a vaginal yeast infection. As she is having vaginal burning and burning to the outside the vagina with urination. Prescription for Diflucan was sent to the pharmacy. Supportive measures were discussed with the patient and they voiced understanding discharge instructions and agrees to treatment plan. Return precautions reviewed Differential Diagnosis Differential diagnosis: Likely urinary tract infection, bacterial vaginosis, trichomoniasis, cervicitis, vaginitis, cystitis and other (Vaginal yeast infection) Lab Data Labs: Lab Results 03/22/24 Range/Units 16:47 POC Urine Color Yellow POC Urine Clarity Clear POC Urine pH 6.0 POC Ur Specif [place] 1.030 POC Urine Protein Negative (Negative) POC Ur Glucose (UA) Negative (Negative) POC Urine Ketones Negative (Negative) POC Urine Blood Negative (Negative) POC Urine Nitrite Negative (Negative) POC Urine Bilirubin Negative (Negative) POC Urine Urobilinogen 0.2 POC U Leukocyte Esteras Negative (Negative) Discharge Plan Discharge Clinical Impression: Vaginal yeast infection Patient Disposition: Home, Self-Care Condition: Stable Instructions: Antibiotic Form, Yeast Infection (ED) Additional Instructions: Take Diflucan as prescribed Increase fluids and stay well hydrated Wipe front to back. May use wet wipes. Avoid tub baths If sexually active- pee before and after intercourse. Wear cotton panties Avoid tight clothing up against the genitals Follow up with your PCP in 1 week if symptoms persist. Patient Language: Greenlandic Prescriptions: New fluconazole 150 mg tablet 150 mg PO ONCE Qty: 2 0RF Rx Instructions: as a single dose. May repeat in 72 hours if needed. No Action lisinopril 20 mg Tablet 20 mg PO DAILY prednisone 20 mg tablet See Rx Instructions .Route .COMPLEX Qty: 9 0RF Rx Instructions: Take 40 mg daily for 3 days, 20 mg daily for 3 days doxycycline monohydrate 100 mg tablet 100 mg PO BID Qty: 14 0RF Follow-up/Referrals: Kal Delgado MD [Primary Care Provider] - Time of Disposition: 16:51 Quality NIHSS Nursing Documentation ED NIHSS nursing documentation: reviewed/agree
[2024-03-22 16:45] VITALS: BP 140/80; PULSE 93; RESP 16; TEMP 36.2; O2SAT 99
[2024-03-22 16:49] LABS: EDUAAPPEAR Clear; EDUABILI Negative (Negative); EDUABLOOD Negative (Negative); EDUACOLOR1 Yellow; EDUAGLUCOSE Negative (Negative); EDUAKETONE Negative (Negative); EDUALEUKO Negative (Negative); EDUANITRATE Negative (Negative); EDUAPROTEIN Negative (Negative); EDUAUROBILI 0.2
== END 2024-03-22 16:55 | disposition home or self-care (01) ==
PROVIDERS: Emergency Provider Nurse Practitioner Family; PCP Family Medicine
DX: B37.31 Acute candidiasis of vulva and vagina (principal); Z87.891 Personal history of nicotine dependence
CPT/HCPCS: 81003; 99213; G0463

== ENCOUNTER 2024-03-28 10:23 | Outpatient (CLI) | payer OTHER, SELFPAY ==
[2024-03-28 11:31] LABS: Basophils Absolute Auto 0.1 K/mm3 (0.0-0.1); Basophils Percent Auto 0.7 % (0.2-1.2); Eosinophils Absolute Auto 0.1 K/mm3 (0-0.3); Eosinophils Percent Auto 1.2 % (0-4.4); Hematocrit 39.5 % (37.0-47.0); Hemoglobin 12.3 g/dL (12.0-15.0); Immature Granulocyte Absolute 0.02 K/mm3 (0.00-0.031); Immature Granulocyte Percent A 0.2 % (0-0.5); Lymphocytes Absolute Auto 3.52 K/mm3 (0.9-3.2); Lymphocytes Percent Auto 41.2 % (18.3-44.2); Mean Corpuscular HGB Conc 31.1 g/dl (32-36); Mean Corpuscular Hemoglobin 25.5 pg (26-34); Mean Platelet Volume 9.5 fl (7.4-10.4); Monocytes Absolute Auto 0.5 K/mm3 (0.1-0.6); Monocytes Percent Auto 5.7 % (2.6-8.5); Neutrophils Absolute Auto 4.4 K/mm3 (1.3-6.7); Platelet Count Result 395 k/mm3 (150-375); Red Blood Count 4.82 M/mm3 (4.2-5.4); Red Cell Distribution Width 15.8 % (11.5-14.5); White Blood Count 8.5 K/mm3 (4.5-10.0)
[2024-03-28 11:42] LABS: Alanine Aminotransferase 33 U/L (6-35); Albumin Level 4.1 g/dL (3.5-5.1); Alkaline Phosphatase 42 U/L (38-126); Anion Gap 8 mmol/L (4-12); Aspartate Amino Transferase 24 U/L (14-36); Bilirubin,Total 0.5 mg/dL (0.2-1.3); Blood Urea Nitrogen 13 mg/dL (7-17); Calcium 9.2 mg/dL (8.4-10.2); Carbon Dioxide 23 mmol/L (22-30); Chloride 108 mmol/L (98-107); Cholesterol 140 mg/dL (0-200); Estimated Glomerular Filt Rate > 60; Glucose 85 mg/dL (65-110); HDL Direct 45 mg/dL; Potassium 4.2 mmol/L (3.4-5.0); Sodium 139 mmol/L (137-145); Triglycerides 88 mg/dL (<150)
[2024-03-28 11:44] LABS: Hemoglobin A1C 5.9 % (<5.7)
[2024-03-28 11:54] LABS: LDL Cholesterol Direct 78 mg/dL
[2024-03-28 12:50] LABS: Hepatitis C Virus Antibody Negative (Negative)
== END 2024-03-28 10:24 | disposition home or self-care (01) ==
LOC: ANHLAB 10:25
PROVIDERS: PCP Family Medicine; Visit Provider Registered Nurse
DX: R73.01 Impaired fasting glucose (principal); I10 Essential (primary) hypertension; E78.5 Hyperlipidemia, unspecified; Z11.59 Encounter for screening for other viral diseases
CPT/HCPCS: 36415; 80053; 80061; 83036; 85025; 86803